=== PATIENT | male | born 1960 | race Two or more races ===

== ENCOUNTER 2024-06-09 13:37 | Inpatient (IN) | payer MEDICAID, SELFPAY ==
[2024-06-09] VITALS (12 sets, daily range): BP systolic 83–154; BP diastolic 53–98; PULSE 66–120; RESP 12–100; TEMP 36.8–37.3; O2SAT 98–100; BMI 18.4; BMI 18.9
--- NOTE | 2024-06-09 14:27 | EKG_ITS ---
[facility] Test Date: 2024-06-09 Pat Name: TERESA SHULTZ Department: Room: - Gender: Male [employer]: : 1960 Requested By: Amber Finley Order Number: [id number] Reading MD: Amber Finley Measurements Intervals [place] Rate: 96 P: 68 PA: 152 QRS: -8 QRSD: 89 T: 62 QT: 352 QTc: 447 Interpretive Statements SINUS RHYTHM WITH FREQUENT VENTRICULAR PREMATURE COMPLEXES ABNORMAL RHYTHM ECG No previous ECG available for comparison /store/S0/[id number]/ecg/[id number].pdf
--- NOTE | 2024-06-09 14:27 | EDNOTE_ITS ---
ED General RME/HPI General Chief complaint: General Adult/Misc Complain Stated complaint: hypotensive, lost 60 lbs/ month, not eating, rlq Time Seen by Provider: 06/09/24 14:26 Arrival date/time: 06/09/24 13:37 RME / HPI RME / HPI narrative: 63-year-old male patient with no significant medical history, came in for evaluation regarding dizziness. Patient's been having worsening dizziness since early May, getting worse, especially with activity. Patient sustained a ground-level fall last May 03, resulting to pain to the left chest. Patient also noticed getting more pale than usual. He lost 60 pounds of weight in 1 month time. He is eating less and less. No vomiting also complained of right lower quadrant pain. Comes and goes. Patient told me that his stool is darker in color. But denies any black tarry stool. Was seen by PCP and was referred here for further management. Related Data Allergies Allergy/AdvReac Type Severity Reaction Status Date / Time No Known Allergies Allergy Verified 06/09/24 13:45 Review of Systems Review of Systems Narrative Review of Systems: Review of system reviewed and within normal limits except mentioned in HPI ED Exam Narrative Physical exam: VITAL SIGNS: Reviewed. GENERAL APPEARANCE: Alert and interactive, follows commands, no acute distress, HEAD AND FACE: Non-traumatic. ENT: PERRL, very pale conjunctiva bilateral, eyelid no trauma, Mucous membrane moist. NECK: Supple, nontender, no nuchal rigidity. CHEST: No tenderness, no crepitus, no paradoxical movement, no retractions. LUNGS: Clear, well ventilated, symmetric, no rales, no wheezing, no ronchi, no stridor, good breath sounds bilaterally. HEART: Regular rate, regular rhythm, no murmur, no gallops. ABDOMEN: Soft, positive bowel sounds, nondistended, no guarding, nontender, no rebound, no masses, RECTAL: Deferred. GENITAL: Deferred. NEUROLOGICAL: Gross motor function intact sensory function intact, Appropriate for age. MUSCULOSKELETAL: low back nontender, full range of motion. EXTREMITIES: Nontender, full range of motion. SKIN: Color pale, dry, no rash, no lacerations, no abrasions, no contusions. LYMPHATICS: Deferred. Course Quality Measures none Orders Category Date Time Status COVID-19 Screening Questionnaire NOW Care 06/09/24 19:[address] Screening NOW Care 06/09/24 15:52 Active Decision to Admit X1 Care 06/09/24 19:49 Active EKG (ED ONLY) *Do not use* NOW Care 06/09/24 14:27 Completed Occult Blood,Stool (Nursing) ONCE Care 06/09/24 14:26 Active Transfuse,blood/blood products ONCE Care 06/09/24 14:26 Active Consult to Gastroenterology Stat Cons 06/09/24 19:01 Ordered Consult to General Surgery Stat Cons 06/09/24 19:00 Ordered Diet Clear Liquid Diet 06/10/[address] chest abdomen pelvis w Stat Exams 06/09/24 15:52 Completed EKG (ED Only) Stat Exams 06/09/24 14:27 Draft CBC Stat Lab 06/09/24 15:00 Completed Comprehensive Metabolic Panel Stat Lab 06/09/24 15:00 Completed Occult Blood, Stool (LAB) Stat Lab 06/09/24 14:50 Completed Partial Thromboplastin Time Stat Lab 06/09/24 15:00 Completed Prothrombin Time with INR Stat Lab 06/09/24 15:00 Completed Red Blood Cells Stat Lab 06/09/24 15:00 Results Type and Screen Stat Lab 06/09/24 15:00 Results Urinalysis Stat Lab 06/09/24 17:26 Completed NA BIANCHI/NAHCO3/[place]ICA/PEG (Golytely) [Golytely] Med 06/09/24 19:02 Discontinued 4,000 ml PO X1 ONE Pantoprazole Inj [Protonix Inj] Med 06/09/24 14:47 Discontinued 80 mg IV X1 ONE Ringers Lactated 1000 ml [Lactated Ringers] 1,000 ml Med 06/09/24 14:27 Discontinued IV 999 mls/hr Vital Signs Vital signs: Vital Signs Temperature 99.2 F 06/09/24 14:15 Pulse Rate 120 H 06/09/24 14:15 Respiratory Rate 18 06/09/24 14:15 Blood Pressure 83/53 L 06/09/24 14:15 Pulse Oximetry (%) 100 06/09/24 14:15 Oxygen Delivery Method Room Air 06/09/24 14:15 [facility] Patient data External records reviewed:: None Clinical information provided by:: patient Social determinants that could affect healthcare access:: none Patient has the following chronic illnesses:: None How is presenting disease/condition affected by chronic disease/condition?: no chronic disease Evaluation data The following diagnostics were reviewed and interpreted by me:: lab results, radiology exam(s) and EKG tracing(s) Lab and/or radiology exams considered but not ordered:: None Interpretation Summary: EKG shows sinus rhythm, ventricular rate 96 bpm, RI interval 152 MS, no ST segment elevation or depression noted. See results in MDM Medications Medications considered but not ordered:: None Medication administrations:: Medication Administration History Discontinued Medications Lactated Ringer's (Lactated Ringers) 1,000 mls @ 999 mls/hr IV .Q1H1M ONE Stop: 06/09/24 15:27 Last Infusion: 06/09/24 16:15 Dose: Infused Documented By: Admin: 06/09/24 15:12 Dose: 999 mls/hr Documented By: RIO Pantoprazole Sodium (Pantoprazole Inj 40 Mg Vial) 80 mg IV X1 ONE Stop: 06/09/24 14:48 Last Admin: 06/09/24 15:11 Dose: 80 mg Documented By: RIO Polyethylene Glycol/Electrolytes ([place]/Nahco3/[place]/Peg (Golytely) 4,000 Ml Btl) 4,000 ml PO X1 ONE Stop: 06/09/24 19:03 IV fluid hydration IV Protonix, GoLytely Consultations Consultation(s) initiated? (list below): Yes Consultation #1 (Physician, Specialty, Details): Dr. Kim, thank you Dr. Kim Consultation #2 (Physician, Specialty, Details): Dr. Brown thank you Diagnosis Differential Diagnosis ED Complaint MDM: Anemia, colonic mass, metastatic colonic mass Most likely diagnosis given after review of the tests above:: Anemia, colonic mass Admission Indicated Admission indicated?: indicated Explain why admission is indicated or not indicated:: Stable Admission Request Was there a request for admission?: No Disposition Plan Disposition Plan: Discharge Discharge Attestation Discharge Attestation: The patient was given an opportunity to ask questions and understood the discharge instructions. Discharge instructions specifically effects, indications for sooner follow up or return to the emergency department, and the expected course of current diagnosis. Patient condition: Stable Medical Decision Making MDM Narrative MDM Narrative: 63-year-old male patient with no significant medical history, came in for evaluation regarding dizziness. Patient's been having worsening dizziness since early May, getting worse, especially with activity. Patient sustained a ground-level fall last May 03, resulting to pain to the left chest. Patient also noticed getting more pale than usual. He lost 60 pounds of weight in 1 month time. He is eating less and less. No vomiting also complained of right lower quadrant pain. Comes and goes. Patient told me that his stool is darker in color. But denies any black tarry stool. Was seen by PCP and was referred here for further management. Rectal rectal exam was done by me, tested positive for occult blood. Laboratory workup is significant for hemoglobin of 6.8, hematocrit of 24.2. Potassium was noted to be 3.0. CT scan of the abdomen and pelvis showed N oncalcified coronary nodules as above Large tumor mass in the cecum and ascending colon with adjacent lymphadenopathy Fluid adjacent to this large colonic mass suspicious for localized perforation as well as peritoneal carcinomatosis Early small bowel obstruction secondary to this colonic mass Suspicious for osseous metastatic disease, recommend nuclear medicine bone scan follow-up Spoke with Dr. Brown, general surgeon on-call, who examined the patient in the emergency room. Differential Diagnosis Differential Diagnosis: Anemia, colonic mass, metastatic colonic mass Lab Data 06/09/24 15:00 06/09/24 15:00 Labs: Lab Results 06/09/24 06/09/24 06/09/24 Range/Units 14:50 15:00 17:26 WBC 8.7 (3.8-10.6) Thou/mm3 RBC 3.64 L (4.50-5.90) Miln/mm3 Hgb 6.8 L* (13.5-16.0) g/dL Hct 24.2 L (41.0-53.0) % MCV 67 L (80-100) fL MCH 18.7 L (25.0-35.0) pg MCHC 28.1 L (31.0-37.0) g/dl RDW Std Deviation 48.3 H (35.1-43.9) fL Plt Count 661 H (140-440) Thou/mm3 Neut % (Auto) 90 H (37-80) % Lymph % (Auto) 5 L (10-50) % [place] % (Auto) 5 (0-12) % Eos % (Auto) 0 (0-10) % Baso % (Auto) 0 (0-2.5) % Neut # (Auto) 7.8 H (1.8-7.7) Thou/mm3 Lymph # (Auto) 0.4 L (1.0-4.8) Thou/mm3 [place] # (Auto) 0.4 (0.0-0.8) Thou/mm3 Eos # (Auto) 0.0 (0.0-0.5) Thou/mm3 Baso # (Auto) 0.0 (0.0-0.2) Thou/mm3 Immature Gran # (Auto) 0.03 H (0.00-0.00) Thou/mm3 Absolute Nucleated RBC 0.00 (0.00-0.00) Thou/mm3 Immature Gran % 0 (0-0) % Nucleated RBC % 0 (0) /100 WBC PT 14.6 H (9.0-12.2) Seconds INR 1.4 H (0.9-1.3) APTT 28.4 (22.0-36.0) Seconds Sodium 136 (136-145) mMol/L Potassium 3.0 L (3.4-5.1) mMol/L Chloride 98 (98-107) mMol/L Carbon Dioxide 29.9 (20.0-31.0) mMol/L Anion Gap 8 (7-16) BUN 19 (9-23) mg/dL Creatinine 0.8 (0.6-1.3) mg/dL Estim Creat Clear Calc 76.8 (>60) mL/min eGFR > 60 (60 - ) See Note BUN/Creatinine Ratio 24 H (12-20) Ratio Glucose 114 H (74-106) mg/dL Calculated Osmolality 275 (275-295) Calcium 9.0 (8.3-10.6) mg/dL Corrected Calcium 9.3 (8.5-10.1) mg/dL Total Bilirubin 0.5 (0.3-1.2) mg/dL AST 10 (0-34) U/L ALT 7 L (10-49) U/L Alkaline Phosphatase 85 (46-116) U/L Total Protein 7.1 (5.7-8.2) gm/dL Albumin 3.6 (3.4-4.8) gm/dL Globulin 3.5 (2.3-3.5) gm/dL Albumin/Globulin Ratio 1.0 L (1.2-2.2) Ur Collection Type Clean Catch Urine Color Yellow (Lt Yel-Yel) Urine Clarity Hazy (Clear/Hazy) Urine pH 7.0 (5.0-7.0) Ur Specific [place] 1.012 (1.001-1.035) Urine Protein Trace (Neg - Trace) Urine Glucose (UA) Negative (Negative) Urine Ketones Negative (Negative) Urine Blood Negative (Negative) Urine Nitrite Positive (Negative) Urine Bilirubin Negative (Negative) Urine Urobilinogen (Auto) 4.0 (0.0-1.0) mg/dL Ur Leukocyte Esterase Positive (Negative) Urine RBC 7 H (0-3) /hpf Urine WBC 27 H (0-5) /hpf Ur Squamous Epith Cells 0 (0-5) /hpf Amorphous Crystals Present A (Absent) Urine Bacteria 1+ A (None) Hyaline Casts < 1 (0-1) /hpf Stool Occult Blood Positive A (Negative) Blood Type O Positive Antibody Screen NEGATIVE Crossmatch See Detail Blood Bank Wristband ID Yes Discharge Plan Plan Patient Disposition: Admit Acute Care w/in Hospital Disposition Comment: Stable Prescriptions/Referrals Referrals: Chris Florian MD [Primary Care Provider] - In 1 week Problem List Clinical Impression: Colonic mass, Anemia Patient/Caregiver Discharge Instructions Print Language: Welsh Stand Alone Forms: Celine Award Info., Patient Portal Info Letter
--- NOTE | 2024-06-09 14:35 | PC.NURSE ---
Patient from [facility] and taken to er rm 2, with c/o gen. abd. pain, decreased appetite, patient states everything tastes saltly pain in abdomen when he eats, patient was send by pmd to be evaluated, also patient states he has lost 60lbs in the last month, and his blood pressure was low at pmd's office. Currently patient skin is jaundice, cool and dry, patient c/o 5/10 abdominal pain and states it feels like gas. new orders received from er provider.
[2024-06-09 15:06] LABS: OBS Developer Lot # 23003; OBS Performed By vasqk2; OBS QC OK? Yes; Occult Blood, Stool Positive (Negative)
[2024-06-09] MEDS: PANTOPRAZOLE INJ 40 MG VIAL 80 MG IV (15:11)
[2024-06-09] MEDS: RINGERS LACTATED 1000 ML 1,000 ML 999 ML IV (15:12)
[2024-06-09 15:17] LABS: Basophils % (Auto) 0 % (0-2.5); Eosinophils % (Auto) 0 % (0-10); Hematocrit 24.2 % (41.0-53.0); Immature Granulocytes % (Auto) 0 % (0-0); Immature Granulocytes Auto 0.03 Thou/mm3 (0.00-0.00); Lymphocytes # (Auto) 0.4 Thou/mm3 (1.0-4.8); Lymphocytes % (Auto) 5 % (10-50); Mean Corpuscular HGB Conc 28.1 g/dl (31.0-37.0); Mean Corpuscular Hemoglobin 18.7 pg (25.0-35.0); Mean Corpuscular Volume 67 fL (80-100); Monocytes # (Auto) 0.4 Thou/mm3 (0.0-0.8); Monocytes % (Auto) 5 % (0-12); Neutrophils # (Auto) 7.8 Thou/mm3 (1.8-7.7); Neutrophils % (Auto) 90 % (37-80); Nucleated Red Blood Cell % 0 /100 WBC (0); Platelet Count 661 Thou/mm3 (140-440); RDW Standard Deviation 48.3 fL (35.1-43.9); Red Blood Count 3.64 Miln/mm3 (4.50-5.90); White Blood Count 8.7 Thou/mm3 (3.8-10.6)
[2024-06-09 15:34] LABS: INR 1.4 (0.9-1.3); Partial Thromboplastin Time 28.4 Seconds (22.0-36.0); Prothrombin Time 14.6 Seconds (9.0-12.2)
--- NOTE | 2024-06-09 15:44 | PC.NURSE ---
DR. BARRETT AT BEDSIDE. SPOKE WITH DR. BARRETT REGARDING LOVENOX MEDICATION, INFORMED DR. BARRETT THAT PATIENT RECEIVED A DOSE OF HEPARIN 5000 UNITS SC THIS MORNING. DR. BARRETT WANTS LOVENOX TO BE CONTINUED ORDERED, VERIFIED WITH PHARMACY SPOKE WITH DIANNE. PER RICARDO NUNEZ TO ADMINISTER LOVENOX MEDICATION, DOCTOR NENA MADE AWARE AND PRIMARY NURSE JUDY MADE AWARE.
[2024-06-09 15:45] LABS: Alanine Aminotransferase 7 U/L (10-49); Albumin, Serum 3.6 gm/dL (3.4-4.8); Alkaline Phosphatase 85 U/L (46-116); Anion Gap 8 (7-16); Aspartate Amino Transferase 10 U/L (0-34); BUN/Creatinine Ratio 24 Ratio (12-20); Bilirubin,Total 0.5 mg/dL (0.3-1.2); Blood Urea Nitrogen 19 mg/dL (9-23); Calcium (Corrected) 9.3 mg/dL (8.5-10.1); Carbon Dioxide 29.9 mMol/L (20.0-31.0); Chloride 98 mMol/L (98-107); Creatinine (Component) 0.8 mg/dL (0.6-1.3); Estimated Creatinine Clearance 76.8 mL/min (>60); Globulin 3.5 gm/dL (2.3-3.5); Glucose 114 mg/dL (74-106); Osmolality,Calculated 275 (275-295); Sodium 136 mMol/L (136-145); Total Protein 7.1 gm/dL (5.7-8.2); eGFR > 60 See Note
[2024-06-09 15:49] LABS: Hemoglobin 6.8 g/dL (13.5-16.0)
--- NOTE | 2024-06-09 15:52 | XR_ITS ---
Examination: CT chest with intravenous contrast CT abdomen with intravenous contrast CT pelvis with intravenous contrast 2-D coronal and sagittal reconstructions Time of exam: June 09, 2024 at 1737 hours INDICATIONS: 60 pound weight loss over the last month with chest and generalized abdominal pain CTDI: vol (mGy) : 4.92 DLP: (mGycm): 376 Technique: Multiple axial images of the chest, abdomen and pelvis with intravenous contrast, 3.0 mm slice thickness. Images obtained post intravenous injection Isovue 370 60 cc. 2-D sagittal and coronal reconstructions. Low dose protocols were performed. One or more of the following dose reduction techniques were used; automated exposure control, adjustment of the mA and/or KV according to patient size, use of iterative reconstruction technique. Findings: No thoracic aortic aneurysm dilatation or dissection Pulmonary artery segments are not enlarged No paratracheal tracheobronchial or bronchopulmonary adenopathy. 3 mm pulmonary nodule right upper lobe image 121 7 mm pulmonary nodule right upper lobe image 207 No lobar pneumonia or pulmonary edema, no pleural disease No visualized liver lesion Contracted gallbladder Spleen is not enlarged No pancreatic or adrenal mass. 6.3 cm upper pole right renal cyst 5 mm calculus anterior margin left kidney Large tumor mass in the cecum ascending colon, axial images 228, coronal image 58 measuring 9 cm proximal distal and 4.6 cm in transverse dimension Significant fluid adjacent to this tumor mass suspicious for localized perforation of the colon at this site Small lymph nodes adjacent to this large colonic mass Reticular pattern in the right peritoneum below and lateral to the mass, axial images 238 suspicious for peritoneal carcinomatosis Small bowel loops are distended terminal ileal region consistent with obstruction by this tumor mass Transverse prostate dimension 4.3 cm Moderate osteopenia with advanced disc narrowing L5-S1 8mm osteolytic lesion left iliac bone image 311 12 mm sclerotic lesion right iliac bone image 334 20 mm osteolytic lesion left iliac bone image 336 8 mm sclerotic lesion in T11 IMPRESSION: Noncalcified coronary nodules as above Large tumor mass in the cecum and ascending colon with adjacent lymphadenopathy Fluid adjacent to this large colonic mass suspicious for localized perforation as well as peritoneal carcinomatosis Early small bowel obstruction secondary to this colonic mass Suspicious for osseous metastatic disease, recommend nuclear medicine bone scan follow-up
--- NOTE | 2024-06-09 17:05 | PC.NURSE ---
Consent for blood signed and placed on chart.
[2024-06-09 17:33] LABS: Collection Type, Urine Clean Catch; Squamous Epithelial Cell,Urine 0 /hpf (0-5)
[2024-06-09 17:47] LABS: Amorphous Crystals,Urine Present (Absent); Bacteria,Urine 1+; Bilirubin,Urine Negative (Negative); Blood,Urine Negative (Negative); Color,Urine Yellow (Lt Yel-Yel); Glucose, Urine Negative (Negative); Hyaline Casts,Urine < 1 /hpf (0-1); Ketones,Urine Negative (Negative); Leukocyte Esterase,Urine Positive (Negative); Nitrite,Urine Positive (Negative); Protein,Urine Trace (Neg - Trace); RBC,Urine 7 /hpf (0-3); Specific Gravity,Urine 1.012 (1.001-1.035); WBC,Urine 27 /hpf (0-5)
[2024-06-09 17:54] LABS: Clarity,Urine Hazy (Clear/Hazy)
--- NOTE | 2024-06-09 19:09 | ESCONSULT_ITS ---
HPI Consult details Consult date: 06/09/24 Reason for consultation narrative: Patient was seen on consultation at the request of emergency room physician because of CT finding showing a large cecal mass and marked anemia History of present illness: History of present was revealed that the patient has been losing weight and has some abdominal pain and bulging on the right lower quadrant when he stands up. Patient denies any history of melena or brendan blood in the stools. He has been going downhill in the past month and is not able to eat and last about 60 pounds. Patient denies any other major medical problems in the past Past Medical History Past Medical History CARDIAC: Negative Cardiac Disorders or Congestive Heart Failure RESPIRATORY: Negative Chronic Obstructive Pulmonary Disease (COPD) or Asthma GENITOURINARY: Negative Renal Disease ENDOCRINE: Negative Diabetes Mellitus Type 1 or Diabetes Mellitus Type 2 HEMATOLOGIC: Negative Sickle Cell Disease Surgical History SURGICAL: Positive Eye Surgery (chris. when he was younger) Social History SMOKING STATUS: Never smoker Meds Home Medications and Allergies Allergies Allergy/AdvReac Type Severity Reaction Status Date / Time No Known Allergies Allergy Verified 06/09/24 13:45 Exam Vital Signs Temp Pulse Resp BP Pulse Ox O2 Del Method 98.7 F 77 12 108/67 100 Room Air 06/09/24 17:00 06/09/24 17:00 06/09/24 17:00 06/09/24 17:00 06/09/24 17:00 06/09/24 17:00 Narrative Exam Physical examination revealed a thin built white male who is about 5 foot 9 inches tall weighing only 125 pounds with BMI of 18.5. His vital signs are normal Routine Abdominal Exam Comments: Abdominal examination shows flat abdomen with no distention or signs of peritonitis. Results Results: Laboratory Laboratory Narrative: Laboratory Showed severe anemia with a hemoglobin of 6.8 and low MCH and MCHC Results: Imaging Imaging narrative: CT scan performed in the emergency room showed large mass in the cecum with possible nodules probably secondary to carcinomatosis. 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 Patient's outlook looks grim but we will follow him. Thank you very much
--- NOTE | 2024-06-09 19:22 | PC.NURSE ---
Dr. Kim at the bedside at this time.
--- NOTE | 2024-06-09 20:17 | PC.NURSE ---
Admitting resident at the bedside at this time.
[2024-06-09] MEDS: NA SU/NAHCO3/KC/PEG (Golytely) 4,000 ML BTL 4000 ML PO (20:26)
--- NOTE | 2024-06-09 20:53 | ESHP_ITS ---
<Statement entered by Daniel Peace MD - 06/10/24 13:39> I have discussed and was present for the essential components of the history, physical examination, diagnosis, and treatment plan with the resident. I agree with the patient's care as documented by the resident and amended herein by me. Daniel Peace MD FACP. Documentation for date of: 06/09/24 HPI History of Present Illness Chief complaint: Hypotension, Weight Loss History of present illness: HPI: Patient is a 63-year-old male with a past medical history significant for cervical spine injury presenting today with a chief complaint of hypotension and weight loss. Patient presented today to his PCP and was found to be hypotensive on arrival and was advised to present to the emergency department. On May 03, 2024 patient had a ground-level fall secondary to feeling weak. He fell and hit his ribs but denied any loss of consciousness, dizziness, headaches. Same time patient noticed a decrease in his appetite but sometimes only consume 1 meal per day. This was associated nausea and sometimes vomiting of only food contents. Also associated with a constant feeling of being bloated. Patient also endorsed an approximate 60 pound weight loss since May 03. With regards to his stools, patient says he has intermittent diarrhea alternating with constipation. Denies any pencil shaped stools, melena, hematochezia, mucus in his stool. His abdominal pain was described as right lower quadrant, intermittent, cramping, 8/10 in severity with no radiation. He says he has some relief with ibuprofen 800 Mg p.o. as needed. He says he tries to avoid pain medication as he does not like to feel loopy. Of note patient is a never?smoker, denies alcohol use, was vegan until 2021 and only rarely consumes red/processed meat. ED course: BP 88/53, pulse 120, RR 18, temp 99.2 F, SpO2 100% on room air. Labs significant for Hb 6.8, HCT 24.2, PLT 661, NA 136, K3. Urinalysis significant for nitrite positive, leukocyte esterase positive and amorphous crystals. EKG significant for sinus rhythm, rate 96, frequent PVCs. No acute ST changes. Chest/abdomen/pelvis CT significant for large tumor mass in cecum and ascending colon with adjacent lymphadenopathy. Fluid adjacent to large colonic mass suspicious for perforation. Possible peritoneal carcinomatosis. Early SBO. Suspicious for osseous metastatic disease. In the ED patient received pantoprazole 80 Mg IV x 1, lactated Ringer's 1 L IV fluid bolus and 1 unit PRBC. Patient will be admitted for workup and management of colonic mass and treatment of symptomatic, acute blood loss anemia. General surgery, Dr Fabian consulted and closely following the case. Appreciate recommendations Gastroenterology, Dr. Kim consulted and closely following the case. Appreciate recommendations Review of Systems Review of Systems Narrative Review of Systems: GENERAL: Denies fever/chills or diaphoresis. HEENT: Denies headaches or visual changes. Denies discharge. Neuro: Denies unusual weakness or difficulty speaking. CARDIO: Denies chest pain or palpitations. PULM: Denies SOB, coughing or wheezing. GI: As above URO: Denies burning/itching/pain/urinary changes. ELEVATORS INSPECTOR: Denies menstrual changes, hot flashes. MSK/EXT/SKIN: Denies joint/skeletal/muscle pain, issues/changes in upper or lower extremities, itchiness, or superficial pain. PSYCH: Cooperative, pleasant mood & affect. The rest of the review of systems is otherwise negative. Past Medical History Past Medical History Comments PMH COMMENT: Past medical history: ? Cervical spine injury Medication list: ?Ibuprofen 800 Mg p.o. 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 Marital Status: . of pancreatic cancer. Has 2 daughters Tobacco use: Denies ETHO use: Denies Illicit drug use: Denies Social History Note: lives alone. At baseline patient can independently ambulate. He was a vegan up until 2021, currently rarely consumes red/processed meat. Family History: Mother? of pancreatic cancer at 83 Exam Vital Signs Temp Pulse Resp BP Pulse Ox O2 Del Method 98.2 F 67 14 114/72 100 Room Air 06/09/24 20:24 06/09/24 20:24 06/09/24 20:16 06/09/24 20:24 06/09/24 20:24 06/09/24 17:00 Narrative Exam Constitutional Alert, oriented x 3 and comfortable. Elderly male, cachectic, bitemporal wasting, appears older than his age. Mucous membranes pale and moist HEENT Vision grossly intact. Patent nares. Trachea midline Respiratory Chest normal on inspection and clear auscultation bilaterally Cardiovascular S1 and S2 audible, RRR. No murmurs carotid bruit. No gross JVD. Abdominal Soft, mass palpated right lower quadrant, non-reducible, painful to palpation, cough impulse negative bilaterally, bowel sounds present. Genitourinary No bladder tenderness, no flank pain. Normal to palpation Musculoskeletal Extremities tone within normal limits. Trace lower extremity edema up to knees bilaterally Neurological CN II - XII grossly intact. Extremity motor and sensation grossly intact. Skin Warm, dry and intact. No apparent lesions. Psychiatric Patient has good affect, is cooperative Results: Labs 06/09/24 15:00 06/09/24 15:00 Labs: Short CBC 06/09/24 Range/Units 15:00 WBC 8.7 (3.8-10.6) Thou/mm3 Hgb 6.8 L* (13.5-16.0) g/dL Hct 24.2 L (41.0-53.0) % Plt Count 661 H (140-440) Thou/mm3 BMP 06/09/24 15:00 Sodium 136 Potassium 3.0 L Chloride 98 Carbon Dioxide 29.9 BUN 19 Creatinine 0.8 Glucose 114 H Calcium 9.0 Liver Function 06/09/24 Range/Units 15:00 Total Bilirubin 0.5 (0.3-1.2) mg/dL AST 10 (0-34) U/L ALT 7 L (10-49) U/L Alkaline Phosphatase 85 (46-116) U/L Albumin 3.6 (3.4-4.8) gm/dL Urine 06/09/24 Range/Units 17:26 Urine Color Yellow (Lt Yel-Yel) Urine Clarity Hazy (Clear/Hazy) Urine pH 7.0 (5.0-7.0) Ur Specific [place] 1.012 (1.001-1.035) Urine Protein Trace (Neg - Trace) Urine Glucose (UA) Negative (Negative) Quality Measures Quality Measures none Medications Home Medications and Allergies Allergies Allergy/AdvReac Type Severity Reaction Status Date / Time No Known Allergies Allergy Verified 06/09/24 13:45 Visit Medications Acetaminophen (Acetaminophen 325 Mg Tablet) 650 mg PO Q6H PRN PRN Reason: Fever >100.3 or pain Stop: 07/09/24 20:46 Albuterol/Ipratropium (Albuterol/Ipratropium (Duoneb) Rt Lyudmila 3 Ml Nebu) 3 ml INH Q4HR PRN PRN Reason: SHORTNESS OF BREATH OR WHEEZE Stop: 07/09/24 20:46 Morphine Sulfate (Morphine Sulf Inj 10 Mg/Ml Vial) 2 mg IVP Q4H PRN PRN Reason: PAIN SCALE 4-10(Mod-Sev Stop: 06/14/24 20:46 Ondansetron HCl (Ondansetron Inj 2 Mg/Ml Inj 2 Ml) 4 mg IV Q6H PRN; Protocol PRN Reason: NAUSEA OR VOMITING Stop: 07/09/24 20:46 Pantoprazole Sodium (Pantoprazole Inj 40 Mg Vial) 40 mg IVP QDAY SAMUEL Stop: 07/10/24 08:59 Discontinued Medications Lactated Ringer's (Lactated Ringers) 1,000 mls @ 999 mls/hr IV .Q1H1M ONE Stop: 06/09/24 15:27 Last Infusion: 06/09/24 16:15 Dose: Infused Lidocaine (Lidocaine 5% 1 Patch) 1 patch TOP X1 ONE Stop: 06/09/24 20:48 Pantoprazole Sodium (Pantoprazole Inj 40 Mg Vial) 80 mg IV X1 ONE Stop: 06/09/24 14:48 Last Admin: 06/09/24 15:11 Dose: 80 mg Polyethylene Glycol/Electrolytes (Na Brown/Nahco3/Sanket/Peg (Golytely) 4,000 Ml Btl) 4,000 ml PO X1 ONE Stop: 06/09/24 19:03 Last Admin: 06/09/24 20:26 Dose: 4,000 ml Assessment & Plan Plan Patient is a 63-year-old male with a past medical history significant for cervical spine injury presenting today with a chief complaint of hypotension and weight loss. Patient will be admitted for workup and management of colonic mass and treatment of symptomatic, acute blood loss anemia. 1. Symptomatic, acute blood loss anemia 2. Thrombocytosis Patient's endorses weakness and intermittent palpitations Patient denies any hematemesis, coffee-ground emesis, melena, hematochezia. On admission Hb 6.8, HCT 24.2. PLT 661 FOBT positive Plan: ? Clear liquid diet ? 1 unit PRBC transfusion ? Post transfusion H&H ? Protonix 40 Mg IV twice daily ? GI, Dr. Kim consulted. Appreciate recommendation 3. Colonic mass for investigation 4. Possible SBO 5. Nausea 6. Weight loss Patient endorses a history of approximately 60 pounds weight loss in the past 1 month, also associated with decreased appetite and nausea Chest/abdomen/pelvis CT significant for large tumor mass in cecum and ascending colon with adjacent lymphadenopathy. Fluid adjacent to large colonic mass suspicious for perforation. Possible peritoneal carcinomatosis. Early SBO. Suspicious for osseous metastatic disease. Plan: ? GoLytely bowel prep ? For colonoscopy once clear ? GI, Dr. Kim consulted. Appreciate recommendations. ? General Surgery, Dr Fabian consulted. Appreciate recommendations 7. Hypokalemia On admission K3 Plan: ? KCl 40 mEq IV x 1 8. Asymptomatic bacteriuria Patient denies any dysuria, increased frequency or LUTS Urinalysis significant for nitrite positive, leukocyte esterase positive and amorphous crystals Plan: ? No need for antibiotics at this time. Health maintenance: Disposition: Blood transfusion. Pending colonoscopy once cleared Diet: Clear liquid Lines: pIVs GI Prophylaxis: Protonix 40 Mg IV twice daily Thrombo Prophylaxis: SCDs Code status: FULL CODE Plan of care discussed with Attending Dr. Nata Rushing MD PGY 1
[2024-06-09] MEDS: LIDOCAINE 5% 1 PATCH TOP (20:58)
[2024-06-09] MEDS: POTASSIUM CHL 10 mEq IVPB 10 MEQ/100 ML BAG 100 MEQ IV ×3 (21:10→23:42)
--- NOTE | 2024-06-09 22:06 | PD.IMCONS ---
HPI Data of Consult Requesting Physician: Daniel Peace MD Primary Care Provider: Chris Florian MD Consult Narrative Reason for consult: H/H 6.8/24.2 abnormal CTAP History of present illness: 63 years old male came into the hospital because of the feeling pale dizzy and 60 pound weight loss Hemoglobin hematocrit 6.8 and 24.2 Pro time INR 1.4 CT abdomen pelvis shows large cecal mass with possible local perforation regional lymphadenopathy as well as metastatic bone disease cc:: cc: Daniel Peace MD Review of Systems Review of Systems Systems Reviewed: All systems reviewed, normal except as documented Meds Home Medications and Allergies Allergies Allergy/AdvReac Type Severity Reaction Status Date / Time No Known Allergies Allergy Verified 06/09/24 13:45 Exam Vital Signs Temp Pulse Resp BP Pulse Ox O2 Del Method 98.2 F 66 20 114/72 100 Room Air 06/09/24 20:24 06/09/24 21:22 06/09/24 21:22 06/09/24 20:24 06/09/24 21:22 06/09/24 17:00 Constitutional Comments: Chronically ill-appearing Routine Respiratory Exam Comments: Normal to auscultation Routine Abdominal Exam Comments: Tender positive bowel sounds Results Labs 06/09/24 15:00 06/09/24 15:00 Labs: Short CBC 06/09/24 Range/Units 15:00 WBC 8.7 (3.8-10.6) Thou/mm3 Hgb 6.8 L* (13.5-16.0) g/dL Hct 24.2 L (41.0-53.0) % Plt Count 661 H (140-440) Thou/mm3 BMP 06/09/24 15:00 Sodium 136 Potassium 3.0 L Chloride 98 Carbon Dioxide 29.9 BUN 19 Creatinine 0.8 Glucose 114 H Calcium 9.0 Liver Function 06/09/24 Range/Units 15:00 Total Bilirubin 0.5 (0.3-1.2) mg/dL AST 10 (0-34) U/L ALT 7 L (10-49) U/L Alkaline Phosphatase 85 (46-116) U/L Albumin 3.6 (3.4-4.8) gm/dL Urine 06/09/24 Range/Units 17:26 Urine Color Yellow (Lt Yel-Yel) Urine Clarity Hazy (Clear/Hazy) Urine pH 7.0 (5.0-7.0) Ur Specific [place] 1.012 (1.001-1.035) Urine Protein Trace (Neg - Trace) Urine Glucose (UA) Negative (Negative) Assessment and Plan Additional Assessment & Plan Additional Plan: # 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
[2024-06-09 22:40] LABS: Carcinoembryonic Antigen 3.4 ng/mL (0.0-5.0)
[2024-06-10] VITALS (10 sets, daily range): BP systolic 103–137; BP diastolic 61–92; PULSE 67–86; RESP 16–98; TEMP 36.2–36.8; O2SAT 94–100; BMI 19.0
[2024-06-10] MEDS: POTASSIUM CHL 10 mEq IVPB 10 MEQ/100 ML BAG 100 MEQ IV ×3 (00:55→14:20)
[2024-06-10 01:36] LABS: Hematocrit 28.3 % (41.0-53.0)
[2024-06-10 01:48] LABS: Hemoglobin 8.5 g/dL (13.5-16.0)
[2024-06-10] MEDS: ONDANSETRON INJ 2 MG/ML INJ 2 ML 4 MG IV (02:38)
--- NOTE | 2024-06-10 03:40 | PC.NURSE ---
MD Cruz notified that patient is not tolerating goleytely prep. Patient was given zofran at approximately 0238 but an hour later there is no relief and patient states he can't keep anything down without throwing up. He said he does not eat or drink much at home, only one meal a day and 2-3 cups of water a day. MD Cruz put in orders for NG tube to LIS and NPO. Patient educated about NG tube but patient is refusing NG tube insertion at this time
[2024-06-10 05:58] LABS: Basophils % (Auto) 0 % (0-2.5); Eosinophils % (Auto) 0 % (0-10); Hematocrit 33.7 % (41.0-53.0); Hemoglobin 10.3 g/dL (13.5-16.0); Immature Granulocytes % (Auto) 0 % (0-0); Immature Granulocytes Auto 0.02 Thou/mm3 (0.00-0.00); Lymphocytes # (Auto) 0.5 Thou/mm3 (1.0-4.8); Lymphocytes % (Auto) 6 % (10-50); Mean Corpuscular HGB Conc 30.6 g/dl (31.0-37.0); Mean Corpuscular Hemoglobin 21.3 pg (25.0-35.0); Mean Corpuscular Volume 70 fL (80-100); Monocytes # (Auto) 0.6 Thou/mm3 (0.0-0.8); Monocytes % (Auto) 7 % (0-12); Neutrophils # (Auto) 6.9 Thou/mm3 (1.8-7.7); Neutrophils % (Auto) 86 % (37-80); Nucleated Red Blood Cell % 0 /100 WBC (0); Platelet Count 645 Thou/mm3 (140-440); RDW Standard Deviation 55.1 fL (35.1-43.9); Red Blood Count 4.84 Miln/mm3 (4.50-5.90)
[2024-06-10 06:34] LABS: Glucose Estimated Average 94 mg/dL (80-131); Hemoglobin A1C 4.9 % Hgb (4.8-6.0)
--- NOTE | 2024-06-10 06:36 | PC.NURSE ---
Dicyclomine vial not available in pyxis. Pharmacy notified and said they will look into it
[2024-06-10 06:37] LABS: Alanine Aminotransferase 7 U/L (10-49); Albumin, Serum 3.2 gm/dL (3.4-4.8); Albumin/Globulin Ratio 0.9 (1.2-2.2); Alkaline Phosphatase 79 U/L (46-116); Anion Gap 9 (7-16); Aspartate Amino Transferase 13 U/L (0-34); BUN/Creatinine Ratio 20 Ratio (12-20); Bilirubin,Total 1.2 mg/dL (0.3-1.2); Blood Urea Nitrogen 10 mg/dL (9-23); Calcium (Corrected) 9.6 mg/dL (8.5-10.1); Carbon Dioxide 27.8 mMol/L (20.0-31.0); Cardiac Risk Estimate 3.4 RATIO (4.0-6.7); Chloride 102 mMol/L (98-107); Cholesterol 101 mg/dL (132-200); Creatinine (Component) 0.5 mg/dL (0.6-1.3); Estimated Creatinine Clearance 126.3 mL/min (>60); Globulin 3.6 gm/dL (2.3-3.5); Glucose 95 mg/dL (74-106); HDL Cholesterol 30 mg/dL (40-60); LDL Cholesterol,Calculated 54 mg/dL (0-130); Magnesium 1.9 mg/dL (1.6-2.6); Osmolality,Calculated 276 (275-295); Phosphorous 2.6 mg/dL (2.4-5.1); Potassium 3.4 mMol/L (3.4-5.1); Sodium 139 mMol/L (136-145); Total Protein 6.8 gm/dL (5.7-8.2); Triglycerides 86 mg/dL (30-150); eGFR > 60 See Note
[2024-06-10] MEDS: PANTOPRAZOLE INJ 40 MG VIAL IVP ×2 (09:50→20:48)
--- NOTE | 2024-06-10 10:24 | XR_ITS ---
Examination: Gastrografin enema with KUB Exam date and time: May 14, 2024 1102 hours INDICATIONS: Mass in the right colon on CT abdomen study yesterday, abdominal distention 2 days TECHNIQUE AND FINDINGS: [facility] Services AP supine abdomen demonstrates air distended small bowel loops Colon filled in retrograde manner with Gastrografin to the ascending colon with large apple core type abrupt termination of the ascending colon near the cecum No significant contrast passes more proximally No abnormal extravasation of Gastrografin IMPRESSION: Total obstruction of the ascending colon by large tumor mass
--- NOTE | 2024-06-10 12:35 | ESCONSULT_ITS ---
HPI Data of Consult Requesting Physician: Daniel Peace MD Primary Care Provider: Chris Florian MD Consult Narrative Reason for consult: Suspected colon cancer History of present illness: Patient is 63-year-old gentleman admitted with abdominal pain, with CT scan June 09, 2024 showing large tumor mass in the cecum and ascending colon with adjacent lymphadenopathy. There was fluid adjacent to the large colonic mass suspicious for localized perforation as well as peritoneal carcinomatosis. There is also early small bowel obstruction secondary to colonic mass. There was also suspected osseous met disease. Also noted was significant low hemoglobin was 6.8 and received 1 unit packed cells. Seen by Dr. Brown general surgeon and Dr. Kim marine water tender who is planning a colonoscopy and biopsy. Referred for oncological consultation. 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 denies smoking drinking Past Medical History Comments PMH COMMENT: History of cervical spine injury ocular surgery for right eye stress [place] visit at age 8. Meds Home Medications and Allergies Home Medications ?Medication ?Instructions ?Recorded ?Confirmed ?Type ibuprofen 400 mg tablet (IBU) 400 mg PO PRN PRN pain 0 06/10/24 06/10/24 History Allergies Allergy/AdvReac Type Severity Reaction Status Date / Time No Known Allergies Allergy Verified 06/09/24 13:45 Exam Vital Signs Temp Pulse Resp BP Pulse Ox O2 Del Method 97.7 F 80 17 137/92 H 98 Room Air 06/10/24 08:00 06/10/24 08:00 06/10/24 08:00 06/10/24 08:00 06/10/24 08:00 06/10/24 04:00 Narrative Exam Tired appearing gentleman in no acute distress Results Labs 06/10/24 05:05 06/10/24 05:05 Labs: Short CBC 06/09/24 06/10/24 06/10/24 Range/Units 15:00 01:25 05:05 WBC 8.7 8.0 (3.8-10.6) Thou/mm3 Hgb 6.8 L* 8.5 L D 10.3 L D (13.5-16.0) g/dL Hct 24.2 L 28.3 L 33.7 L (41.0-53.0) % Plt Count 661 H 645 H (140-440) Thou/mm3 BMP 06/09/24 06/10/24 15:00 05:05 Sodium 136 139 Potassium 3.0 L 3.4 Chloride 98 102 Carbon Dioxide 29.9 27.8 BUN 19 10 Creatinine 0.8 0.5 L Glucose 114 H 95 Calcium 9.0 9.0 Liver Function 06/09/24 06/10/24 Range/Units 15:00 05:05 Total Bilirubin 0.5 1.2 D (0.3-1.2) mg/dL AST 10 13 (0-34) U/L ALT 7 L 7 L (10-49) U/L Alkaline Phosphatase 85 79 (46-116) U/L Albumin 3.6 3.2 L (3.4-4.8) gm/dL Urine 06/09/24 Range/Units 17:26 Urine Color Yellow (Lt Yel-Yel) Urine Clarity Hazy (Clear/Hazy) Urine pH 7.0 (5.0-7.0) Ur Specific [place] 1.012 (1.001-1.035) Urine Protein Trace (Neg - Trace) Urine Glucose (UA) Negative (Negative) Assessment and Plan Additional Assessment & Plan Additional Plan: 1.Likely stage IV colon cancer with bone involvement and local perforation. 2. Awaiting colonoscopy and biopsy of cecal mass. Bone scan will be ordered. 3. Will follow. Thank you for allowing me to evaluate this patient
--- NOTE | 2024-06-10 12:49 | XR_ITS ---
Examination: Bone scan whole body, radioisotope Date and time of exam: June 11, 2024 1146 hours INDICATIONS: Malignant neoplasm of the cecum and ascending colon, staging Technique: Study has been performed with intravenous administration of 23 mci 99M technetium MDP. Anterior, posterior whole body images are obtained. Images have been obtained including the lower extremities. Findings: Increased isotope accumulation anterior left ribs left sixth and seventh Minor asymmetric increased uptake about the right knee IMPRESSION: Positive bone scan but nonspecific, the foci of increased uptake in the left sixth and seventh ribs appear to be old fractures on the CT chest study June 09, 2024 No findings diagnostic for osseous metastatic disease
--- NOTE | 2024-06-10 13:34 | PD.RESPRO ---
Documentation for date of: 06/10/24 Subjective Subjective Interval history: Patient seen at bedside this morning. No overnight events. Patient was unable to tolerate GoLytely prep as he had increased vomiting and could not hold the GoLytely. General surgeon ordered chest x-ray with barium enema which showed total obstruction of the ascending colon by large tumor mass. Patient after coming back from radiology did have copious diarrhea. General surgeon stated that patient would most likely need an ex lap, but that was getting consult with GI specialist for next course of action. 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 Patient has no other complaints at this time. Exam Vital Signs Temp Pulse Resp BP Pulse Ox O2 Del Method 97.7 F 80 17 137/92 H 98 Room Air 06/10/24 08:00 06/10/24 08:00 06/10/24 08:00 06/10/24 08:00 06/10/24 08:00 06/10/24 04:00 Narrative Exam General: A/O x3, no acute distress, thin/frail Eyes: PERRL, EOMI. Anicteric, vision grossly intact. Ears: No ear pain, no ear discharge, Hearing grossly intact. Nose: No nasal discharge. Mouth/Throat: Moist mucous membranes, no redness, no lesions. Neck: Neck supple, non-tender, no cervical lymphadenopathy. Lungs: Clear JAYASHREE to auscultation and percussion, No accessory muscle use. Cardio: Normal S1/S2, regular rhythm, no murmurs, no JVD. Abdomen: Soft, non-tender, palpable mass in R side abdomen, peristalsis present, no guarding or rebound. Extremities: Symmetrical, no significant deformities, no peripheral edema , non-tender, peripheral pulses presents. Skin: No rashes, no lesions, warm to touch. Neuro: No focal neurological deficits. Motor and sensory Objective Labs 06/10/24 05:05 06/10/24 05:05 Labs: Laboratory Results - last 24 hr 06/09/24 06/09/24 06/09/24 14:50 15:00 17:26 WBC 8.7 RBC 3.64 L Hgb 6.8 L* Hct 24.2 L MCV 67 L MCH 18.7 L MCHC 28.1 L RDW Std Deviation 48.3 H Plt Count 661 H Neut % (Auto) 90 H Lymph % (Auto) 5 L Chase % (Auto) 5 Eos % (Auto) 0 Baso % (Auto) 0 Neut # (Auto) 7.8 H Lymph # (Auto) 0.4 L Chase # (Auto) 0.4 Eos # (Auto) 0.0 Baso # (Auto) 0.0 Immature Gran # (Auto) 0.03 H Absolute Nucleated RBC 0.00 Immature Gran % 0 Nucleated RBC % 0 PT 14.6 H INR 1.4 H APTT 28.4 Sodium 136 Potassium 3.0 L Chloride 98 Carbon Dioxide 29.9 Anion Gap 8 BUN 19 Creatinine 0.8 Estim Creat Clear Calc 76.8 eGFR > 60 BUN/Creatinine Ratio 24 H Glucose [address] Glu mg/dL Hemoglobin A1c Calculated Osmolality 275 Calcium 9.0 Corrected Calcium 9.3 Phosphorus Magnesium Total Bilirubin 0.5 AST 10 ALT 7 L Alkaline Phosphatase 85 Total Protein 7.1 Albumin 3.6 Globulin 3.5 Albumin/Globulin Ratio 1.0 L Triglycerides Cholesterol LDL Cholesterol, Calc HDL Cholesterol Cholesterol/HDL Ratio Carcinoembryonic Ag 3.4 TSH Ur Collection Type Clean Catch Urine Color Yellow Urine Clarity Hazy Urine pH 7.0 Ur Specific Wayne 1.012 Urine Protein Trace Urine Glucose (UA) Negative Urine Ketones Negative Urine Blood Negative Urine Nitrite Positive Urine Bilirubin Negative Urine Urobilinogen (Auto) 4.0 Ur Leukocyte Esterase Positive Urine RBC 7 H Urine WBC 27 H Ur Squamous Epith Cells 0 Amorphous Crystals Present A Urine Bacteria 1+ A Hyaline Casts < 1 Stool Occult Blood Positive A Blood Type O Positive Antibody Screen NEGATIVE Crossmatch See Detail Blood Bank Wristband ID Yes 06/10/24 06/10/24 01:25 05:05 WBC 8.0 RBC 4.84 Hgb 8.5 L D 10.3 L D Hct 28.3 L 33.7 L MCV 70 L MCH 21.3 L MCHC 30.6 L RDW Std Deviation 55.1 H Plt Count 645 H Neut % (Auto) 86 H Lymph % (Auto) 6 L Chase % (Auto) 7 Eos % (Auto) 0 Baso % (Auto) 0 Neut # (Auto) 6.9 Lymph # (Auto) 0.5 L Chase # (Auto) 0.6 Eos # (Auto) 0.0 Baso # (Auto) 0.0 Immature Gran # (Auto) 0.02 H Absolute Nucleated RBC 0.00 Immature Gran % 0 Nucleated RBC % 0 PT INR APTT Sodium 139 Potassium 3.4 Chloride 102 Carbon Dioxide 27.8 Anion Gap 9 BUN 10 Creatinine 0.5 L Estim Creat Clear Calc 126.3 eGFR > 60 BUN/Creatinine Ratio [address] Glu mg/dL 94 Hemoglobin A1c 4.9 Calculated Osmolality 276 Calcium 9.0 Corrected Calcium 9.6 Phosphorus 2.6 Magnesium 1.9 Total Bilirubin 1.2 D AST 13 ALT 7 L Alkaline Phosphatase 79 Total Protein 6.8 Albumin 3.2 L Globulin 3.6 H Albumin/Globulin Ratio 0.9 L Triglycerides 86 Cholesterol 101 L LDL Cholesterol, Calc 54 HDL Cholesterol 30 L Cholesterol/HDL Ratio 3.4 L Carcinoembryonic Ag TSH 1.60 Ur Collection Type Urine Color Urine Clarity Urine pH Ur Specific Wayne Urine Protein Urine Glucose (UA) Urine Ketones Urine Blood Urine Nitrite Urine Bilirubin Urine Urobilinogen (Auto) Ur Leukocyte Esterase Urine RBC Urine WBC Ur Squamous Epith Cells Amorphous Crystals Urine Bacteria Hyaline Casts Stool Occult Blood Blood Type Antibody Screen Crossmatch Blood Bank Wristband ID Quality Measures Quality Measures none Assessment & Plan Assessment Current Active Medications: Generic Name Dose Route Start Last Admin Trade Name Freq PRN Reason Stop Dose Admin Acetaminophen 650 mg 06/09/24 20:47 Acetaminophen 325 Mg Tablet PO 07/09/24 20:46 Q6H PRN Fever >100.3 or pain Albuterol/Ipratropium 3 ml 06/09/24 20:47 Albuterol/Ipratropium (Duoneb) Rt Lyudmila 3 Ml Nebu INH 07/09/24 20:46 Q4HR PRN SHORTNESS OF BREATH OR WHEEZE Morphine Sulfate 2 mg 06/09/24 20:47 Morphine Sulf Inj 10 Mg/Ml Vial IVP 06/14/24 20:46 Q4H PRN PAIN SCALE 4-10(Mod-Sev Ondansetron HCl 4 mg 06/09/24 20:47 06/10/24 02:38 Ondansetron Inj 2 Mg/Ml Inj 2 Ml IV 07/09/24 20:46 4 mg Q6H PRN Administration NAUSEA OR VOMITING Protocol Pantoprazole Sodium 40 mg 06/10/24 09:00 06/10/24 09:50 Pantoprazole Inj 40 Mg Vial IVP 07/10/24 08:59 40 mg BID SAMUEL Administration Plan 63-year-old male with past medical history of cervical spine injury was admitted to the hospital on 06/09/2024 due to symptomatic anemia likely secondary to blood loss in the setting of colonic mass with suspicion for malignancy. #Symptomatic anemia likely secondary to #GI bleed in the setting of #Colonic mass, suspicion for malignancy #Lymphadenopathy #Osteolytic lesions #Weight loss ?Patient stated he was feeling weak some palpitations on admission ?DDx patient's anemia most likely in the setting of GI bleed due to possible colonic malignancy with possible metastasis given patient has osteolytic lesions as well as lymphadenopathy. ?Patient's hemoglobin on admission was 6.8 and currently 10.3 today ? Patient's FOBT was positive ? Chest/abdomen/pelvis CTA showed a large tumor mass in cecum and ascending colon with adjacent lymphadenopathy as well as fluid adjacent to mass suspicious for perforation versus peritoneal carcinomatosis. ?CEA 3.4 ?Patient received 2 unit of PRBC ?X-ray barium enema showed obstruction of the ascending colon by tumor mass Plan: ?Possible Ex lap by general surgeon en next few days - Unable to tolerate bowel prep, will await GI recommendations ?Protonix 40 mg twice daily ?Bone scan ordered by oncologist ? Bleeding precautions ? Refer to registered dietitian ? GI consulted, appreciate recommendations ? General Surgery consulted, appreciate commendations ?Oncology consulted, appreciate commendations ?Will continue to monitor #Hypokalemia ? Patient's potassium on admission was 3 and currently 3.4 Plan: ? Will replete as necessary ?Will continue to monitor #Asymptomatic bacteriuria ? Patient's urinalysis was positive for bacteria ? Patient did not have any symptoms at this time Plan: ? Will continue to monitor, but will not treat as patient is symptomatic. Disposition: Patient seen in med surg for possible Stage IV colon cancer with bone involvement, pending possible Ex lap by general surgeon. Diet: NPO GI prophylaxis: Protonix DVT prophylaxis: SCDs Code: Full code Case disclosed with Attending Dr. Lan and my senior Dr. Fonseca PGY2 Fareed Tristan PGY1 Senior Resident Attestation: The patient is a 63-year-old male with significant past medical history of cervical spine injury admitted on 06/09/2024 with chief complaint of generalized weakness was found to have symptomatic anemia likely secondary to lower GI bleed in the setting of colonic mass suspected to be malignant. GI Dr. Kim suspended the patient's colonoscopy procedure, ordered bone scan and patient tried Gastrografin p.o. but started vomiting. Currently pending general surgeon Dr. Brown's recommendation. We will keep the patient n.p.o. in the setting of intractable nausea and vomiting. I discussed with and supervised the process engineering intern physician involved in the care of this patient. I personally saw and examined the patient and discussed the assessment and plan with the entire medicine team, including my attending. I agree with the assessment and plan as documented above. Shin Fonseca MD PGY2 Internal Medicine Attending Provider Attestation/Addendum I reviewed labs, imaging, EKG, home medications and prior available records. Face to face evaluation was performed by me. I have personally examined the patient and discussed assessment and plan with the IM team. I reviewed the resident note and agree with the plan with exceptions as below. Colon mass: Concern for malignancy. He has severe constipation. He has lymphadenopathy and bony lesions concerning for bone metastases. Sent CEA. Consulted oncology: Recommended bone scan and biopsy of the colon mass. Consulted general surgery: Recommended exploratory laparotomy and GI involvement. Consulted GI: Recommended GoLytely and Gastrografin study. Gastrografin study did show the mass. Patient will likely have exploratory laparotomy in the next 1 to 2 days but will try colonoscopy first and removal of stool. Microcytic anemia: MCV 70. In the setting of colon mass/malignancy. Improved after PRBC transfusion. Continue to monitor H&H. GI workup as above.
--- NOTE | 2024-06-10 16:13 | PC.DIETICIAN ---
Patient is at high risk for refeeding syndrome given very low BMI, poor oral intake, and significant weight loss. 1.Initiate a refeeding protocol with gradual caloric increase, starting with a low dose of carbohydrates and protein, to prevent refeeding syndrome. Prioritize small, frequent meals. 2.Consider ONS (Ensure plus or Mighty Shakes) if PO intake remains <50%. 3.Recommend 100mg thiamine daily for 7 days; provide the first dose at least 30 minutes before starting nutrition. RD to remain available as requested or needed.
--- NOTE | 2024-06-10 18:30 | ESPR_ITS ---
Documentation for date of: 06/10/24 Subjective Subjective Brief History: History of present was revealed that the patient has been losing weight and has some abdominal pain and bulging on the right lower quadrant when he stands up. Patient denies any history of melena or brendan blood in the stools. He has been going downhill in the past month and is not able to eat and last about 60 pounds. Patient denies any other major medical problems in the past Narrative: Patient was seen today after the barium enema. 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 He will require palliative resection of the right colon possibly ilio transverse colostomy if his bowel is clean. Otherwise he may even need a palliative jejunostomy. If the lesion is struck firmly to the abdominal wall resection of this lesion especially in the presence of metastatic disease in the abdomen will be difficult and may not change the prognosis. Patient does not want any bowel prep or surgical intervention at this time because he wants to make some arrang ements with his children and want to discuss with them about the surgery. He wants to go away from the hospital for a couple of days to take care of some legal matters and then come back to the hospital for surgery. We will meanwhile wait and see if Dr. Kim is still considering to do a colonoscopy. Thank you very much
--- NOTE | 2024-06-10 18:44 | PC.LAC ---
Rocio came and spoke to the patient about the need for surgery on the large tumor in his colon. Patient is adamant that he would prefer to leave for a day or two so that he can get legal paper work taken care of in case he does not make it through surgery. Rocio did explain to the patient that it would be best that prior to surgery he would complete a bowel prep if possible (either golytely or mag citrate) because that would help to have a better outcome with the surgery. At this time, pt is not able to complete golytely due to it making him nauseated and vomit at time. Patient understands that he needs the surgery. Rocio is in agreement to let the pt do whatever he feels he needs to do, with the hopes that he will return to have the surgery. However, it has also been explained that this is likely cancer and we do not know if it has spread.
--- NOTE | 2024-06-10 21:01 | ESPR_ITS ---
Documentation for date of: 06/10/24 Subjective Subjective Interval history: Patient evaluated patient wants to go home for couple days to take care of some legal matters GoLytely stopped because patient had vomiting Case discussed with the hand frame surgical elastic knitter Patient can go home and come back for readmission and try to prep the colon at that time My only advice is patient stays on clear liquid diet at home And give him GoLytely via NGT slowly on his admission back in prep the colon and have a 1 stage operation Exam Vital Signs Temp Pulse Resp BP Pulse Ox O2 Del Method 97.1 F 71 18 103/82 98 Room Air 06/10/24 16:00 06/10/24 20:07 06/10/24 20:07 06/10/24 16:00 06/10/24 20:07 06/10/24 04:00 Objective Labs 06/10/24 05:05 06/10/24 05:05 Labs: Laboratory Results - last 24 hr 06/09/24 06/10/24 06/10/24 15:00 01:25 05:05 WBC 8.0 RBC 4.84 Hgb 8.5 L D 10.3 L D Hct 28.3 L 33.7 L MCV 70 L MCH 21.3 L MCHC 30.6 L RDW Std Deviation 55.1 H Plt Count 645 H Neut % (Auto) 86 H Lymph % (Auto) 6 L [place] % (Auto) 7 Eos % (Auto) 0 Baso % (Auto) 0 Neut # (Auto) 6.9 Lymph # (Auto) 0.5 L [place] # (Auto) 0.6 Eos # (Auto) 0.0 Baso # (Auto) 0.0 Immature Gran # (Auto) 0.02 H Absolute Nucleated RBC 0.00 Immature Gran % 0 Nucleated RBC % 0 Sodium 139 Potassium 3.4 Chloride 102 Carbon Dioxide 27.8 Anion Gap 9 BUN 10 Creatinine 0.5 L Estim Creat Clear Calc 126.3 eGFR > 60 BUN/Creatinine Ratio [address] Glu mg/dL 94 Hemoglobin A1c 4.9 Calculated Osmolality 276 Calcium 9.0 Corrected Calcium 9.6 Phosphorus 2.6 Magnesium 1.9 Total Bilirubin 1.2 D AST 13 ALT 7 L Alkaline Phosphatase 79 Total Protein 6.8 Albumin 3.2 L Globulin 3.6 H Albumin/Globulin Ratio 0.9 L Triglycerides 86 Cholesterol 101 L LDL Cholesterol, Calc 54 HDL Cholesterol 30 L Cholesterol/HDL Ratio 3.4 L Carcinoembryonic Ag 3.4 TSH 1.60 Blood Type O Positive Antibody Screen NEGATIVE Crossmatch See Detail Blood Bank Wristband ID Yes Impressions Impression: # Obstructing mass: Of the colon Plan As in HPI Assessment & Plan A&P Narrative 1.Likely stage IV colon cancer with bone involvement and local perforation. 2. Awaiting colonoscopy and biopsy of cecal mass. Bone scan will be ordered. 3. Will follow. Thank you for allowing me to evaluate this patient Time Spent With Patient Time: Total time spent is greater than 50% in coordination of care (as documented) at patient's floor/unit and/or counseling patient:
[2024-06-10] MEDS: MORPHINE SULF INJ 10 MG/ML VIAL 2 MG IVP (23:54)
[2024-06-11] VITALS: BP 92/71; PULSE 71; RESP 16; TEMP 37.2; O2SAT 98
[2024-06-11 04:00] VITALS: BP 99/62; PULSE 66; RESP 18; TEMP 37.4; O2SAT 94
[2024-06-11 05:21] LABS: Basophils % (Auto) 0 % (0-2.5); Eosinophils % (Auto) 0 % (0-10); Hematocrit 28.5 % (41.0-53.0); Immature Granulocytes % (Auto) 0 % (0-0); Immature Granulocytes Auto 0.02 Thou/mm3 (0.00-0.00); Lymphocytes # (Auto) 0.7 Thou/mm3 (1.0-4.8); Lymphocytes % (Auto) 10 % (10-50); Mean Corpuscular HGB Conc 30.2 g/dl (31.0-37.0); Mean Corpuscular Hemoglobin 21.2 pg (25.0-35.0); Mean Corpuscular Volume 70 fL (80-100); Monocytes # (Auto) 0.5 Thou/mm3 (0.0-0.8); Monocytes % (Auto) 8 % (0-12); Neutrophils # (Auto) 5.8 Thou/mm3 (1.8-7.7); Neutrophils % (Auto) 82 % (37-80); Nucleated Red Blood Cell % 0 /100 WBC (0); Platelet Count 636 Thou/mm3 (140-440); RDW Standard Deviation 57.6 fL (35.1-43.9); Red Blood Count 4.05 Miln/mm3 (4.50-5.90); White Blood Count 7.1 Thou/mm3 (3.8-10.6)
[2024-06-11 05:36] LABS: Hemoglobin 8.6 g/dL (13.5-16.0)
[2024-06-11 06:08] LABS: Alanine Aminotransferase < 7 U/L (10-49); Albumin, Serum 2.8 gm/dL (3.4-4.8); Albumin/Globulin Ratio 0.9 (1.2-2.2); Alkaline Phosphatase 66 U/L (46-116); Anion Gap 10 (7-16); Aspartate Amino Transferase < 10 U/L (0-34); BUN/Creatinine Ratio 18 Ratio (12-20); Bilirubin,Total 0.9 mg/dL (0.3-1.2); Blood Urea Nitrogen 9 mg/dL (9-23); Calcium 8.9 mg/dL (8.3-10.6); Calcium (Corrected) 9.9 mg/dL (8.5-10.1); Carbon Dioxide 28.2 mMol/L (20.0-31.0); Chloride 104 mMol/L (98-107); Creatinine (Component) 0.5 mg/dL (0.6-1.3); Estimated Creatinine Clearance 126.3 mL/min (>60); Globulin 3.1 gm/dL (2.3-3.5); Glucose 82 mg/dL (74-106); Magnesium 1.9 mg/dL (1.6-2.6); Osmolality,Calculated 280 (275-295); Phosphorous 3.3 mg/dL (2.4-5.1); Potassium 3.5 mMol/L (3.4-5.1); Sodium 142 mMol/L (136-145); Total Protein 5.9 gm/dL (5.7-8.2); eGFR > 60 See Note
[2024-06-11] MEDS: MORPHINE SULF INJ 10 MG/ML VIAL 2 MG IVP ×2 (06:18→12:37)
[2024-06-11 08:00] VITALS: BP 102/67; PULSE 62; RESP 18; TEMP 36.5; O2SAT 99
[2024-06-11 08:42] VITALS: PULSE 60; RESP 16; RESP 18; RESP 98; O2SAT 98
[2024-06-11] MEDS: PANTOPRAZOLE INJ 40 MG VIAL IVP (09:01)
[2024-06-11] MEDS: SODIUM CHLORIDE 0.9% 1000 ML 1,000 ML 100 ML IV (09:01)
--- NOTE | 2024-06-11 11:46 | PC.NURSE ---
dr. flores at bedside md aware of patient desire to leave ama after scan. md communicated importance of staying in the hospital and risks of signing out ama everything up to and including .pt acknowledged. stated he will return if any health changes occur but will return on friday if everything is well. plan is for patient to sign out ama after scan
--- NOTE | 2024-06-11 14:33 | PC.NURSE ---
pt reducated on risks of leaving ama. pt acknowledged. states he needs to handle legal services for his hildren first and must leave. pt alert and oriented gcs 15. niece at bedside. pt signing out ama . MD dr tejada aware
--- NOTE | 2024-06-11 14:46 | PD.RESDS ---
Planned Discharge Date 06/11/24 DS: Providers Provider Date of admission: 06/09/24 20:48 Primary care physician: Chris Florian MD Admitting Provider: Daniel Peace MD Attending Provider on Admission: Daniel Peace MD Consults: 06/09/24 19:00 Consult to General Surgery Stat Comment: colonic maSS Consulting Provider: Estefania Fabian 06/09/24 19:01 Consult to Gastroenterology Stat Comment: Colonic mass Consulting Provider: Brigida Kim 06/10/24 08:00 Referral Registered Dietitian Routine Comment: 06/10/24 10:39 Consult to Oncology Routine Comment: Consulting Provider: Bakari Lares Attending Provider on DC: Ronald Paul MD Discharging Provider: Ronald Paul MD DS: Diagnosis Problem List Completed Was Problem List Reviewed/Reconciled?: Yes Hospital Course Hospital Course Hospital course: 63-year-old male with past medical history of cervical spine injury was admitted to the hospital on 06/09/2024 due to symptomatic anemia likely secondary to blood loss in the setting of colonic mass with suspicion for malignancy. In the ER patient came in initially with complaints of dyspnea, weight loss, and abdominal pain. Initially patient was hypotensive and tachycardic. Initial labs were relevant for anemia (Hgb 6.8), hypokalemia (3), FOBT positive, and UA was positive for bacteria. Initial imaging included EKG which showed sinus rhythm with PACs and chest/abdomen/pelvis CT which showed a large tumor mass in the cecum and ascending colon with adjacent lymphadenopathy as well as multiple osteolytic lesions in the iliac bones as well as the thoracic spine. General surgery was consulted given this patient's mass and at this time stated that the patient needed GI workup for possible colonoscopy. GI specialist was also consulted and started the patient on GoLytely prep for possible colonoscopy, but patient was unable to tolerate GoLytely as he was experiencing a lot of vomiting therefore colonoscopy was canceled. Patient was given 2 PRBC for his anemia. Oncologist was also consulted given the high suspicion for malignancy and stated the patient was likely had stage IV colon cancer with metastasis to the bone and recommended the patient to have a bone scan. Patient had a barium enema x-ray which showed a total obstruction of the ascending colon by a large tumor mass and general surgeon stated that patient will need an ex lap at this time, but patient stated that he needed to take care of some legal matters prior to having surgery and they need to take care of those legal matters as soon as possible. At this time given that patient wanted to leave to take care of legal matters he decided to leave AGAINST MEDICAL ADVICE after thorough discussion with the patient about risk of him leaving the hospital without any intervention at this time and him having such a large tumor which could cause obstruction and can even in the he still decided to leave AGAINST MEDICAL ADVICE. Patient understood all the risks about leaving AGAINST MEDICAL ADVICE at this time and he was instructed to come back to the ER if symptoms persist or worsen. Discharge plan: Return to the ED if you experience any projectile vomiting, increased abdominal pain, fevers, weakness, or bleeding per rectum. Problem list: #Symptomatic anemia likely secondary to #GI bleed in the setting of #Colonic mass, suspicion for malignancy #Lymphadenopathy #Osteolytic lesions #Weight loss #Hypokalemia #Asymptomatic bacteriuria Case disclosed with Attending Dr. Paul and my senior Dr. Fonseca PGY2 Fareed Tristan PGY1 Senior Resident Attestation: The patient was counseled regarding not to leave AMA. However, the patient reported that he wanted to leave AMA. When asked about if there is anything we can do so that he would stay, he reported that he would like to leave AMA. He was told that he might if he needs AMA, but he reported that he understands he might but he wanted to leave. He was prescribed pain medications, and recommended to return back to emergency department [facility] and follow-up with his PCP [facility]. I discussed with and supervised the internal affairs investigator physician involved in the care of this patient. I personally saw and examined the patient and discussed the assessment and plan with the entire medicine team, including my attending. Shin Fonseca MD PGY2 Internal Medicine Time Spent with Patient Time attestation: Total time spent providing and/or coordinating discharge services: >35 min Exam Vital Signs Temp Pulse Resp BP Pulse Ox O2 Del Method 97.7 F 60 18 102/67 98 Room Air 06/11/24 08:00 06/11/24 08:42 06/11/24 08:42 06/11/24 08:00 06/11/24 08:42 06/11/24 08:00 Narrative Exam General: A/O x3, no acute distress, thin/frail Eyes: PERRL, EOMI. Anicteric, vision grossly intact. Ears: No ear pain, no ear discharge, Hearing grossly intact. Nose: No nasal discharge. Mouth/Throat: Moist mucous membranes, no redness, no lesions. Neck: Neck supple, non-tender, no cervical lymphadenopathy. Lungs: Clear JAYASHREE to auscultation and percussion, No accessory muscle use. Cardio: Normal S1/S2, regular rhythm, no murmurs, no JVD. Abdomen: Soft, non-tender, palpable mass in R side abdomen, peristalsis present, no guarding or rebound. Extremities: Symmetrical, no significant deformities, no peripheral edema , non-tender, peripheral pulses presents. Skin: No rashes, no lesions, warm to touch. Neuro: No focal neurological deficits. Motor and sensory Discharge Plan Plan Patient Disposition: Left Against Medical Advice Disposition Comment: Stable Prescriptions/Referrals Prescriptions/Med Rec: New hydrocodone-acetaminophen 5-325 mg tablet 1 tab PO TID MDD 3 PRN (Reason: pain) Qty: 7 0RF No Action ibuprofen [IBU] 400 mg tablet 400 mg PO PRN PRN (Reason: pain) Referrals: Chris Florian MD [Primary Care Provider] - Patient/Caregiver Discharge Instructions Print Language: Chadian Quality Discharge Quality Measures VTE prophylaxis
== END 2024-06-11 15:32 | disposition left against medical advice (07) | DRG 254 ==
LOC: SERX 19:56 → SERHOLD 21:45 → S3SX 23:36
PROVIDERS: Nurse Practitioner Family; Specialist; Student in an Organized Health Care Education/Training Program; Admitting Provider Internal Medicine; Emergency Provider Emergency Medicine; PCP Family Medicine; Visit Provider Internal Medicine
DX: D49.0 Neoplasm of unspecified behavior of digestive system (principal); I49.3 Ventricular premature depolarization; R59.1 Generalized enlarged lymph nodes; D62 Acute posthemorrhagic anemia; Z63.4 Disappearance and death of family member; K92.2 Gastrointestinal hemorrhage, unspecified; K56.609 Unspecified intestinal obstruction, unspecified as to partial versus complete obstruction; M89.58 Osteolysis, other site; E87.6 Hypokalemia; R82.71 Bacteriuria; E46 Unspecified protein-calorie malnutrition; D75.839 Thrombocytosis, unspecified; Z68.1 Body mass index [BMI] 19.9 or less, adult; Z53.09 Procedure and treatment not carried out because of other contraindication; Z53.29 Procedure and treatment not carried out because of patient's decision for other reasons
CPT/HCPCS: 36415; 71260; 74177; 74270; 78306; 80053; 80061; 81001; 82270; 82378; 83036; 83735; 84100; 84443; 85014; 85018; 85025; 85610; 85730; 86850; 86900; 86901; 86923; A4649; A9503; J2270; J2405; J2470; J3480; J7030; J7120; P9016; Q9963; Q9967

== ENCOUNTER 2024-06-13 14:16 | Inpatient (IN) | payer MEDICAID, SELFPAY ==
[2024-06-13 14:17] VITALS: BMI 18.4
[2024-06-13 14:40] VITALS: BP 104/72; PULSE 112; RESP 20; TEMP 36.9; O2SAT 99
--- NOTE | 2024-06-13 15:03 | EDNOTE_ITS ---
ED Abdominal Pain RME/HPI General Chief Complaint: Abdominal Pain Stated complaint: TUMOR IN INTESTINE, WAS TOLD TO COME BY DR. ANNA Time seen by provider: 06/13/24 14:56 Arrival date/time: 06/13/24 14:16 This is a 63-year-old male that comes into the emergency room with complaints of needing surgery for Dr. Anna. Patient states that he was recently told he has a tumor to his intestine that needs to be removed. Patient reports history of recent weight loss. Recently admitted to the hospital on 06/09/2024 due to symptomatic anemia likely secondary to blood loss in the setting of colonic mass with suspicion for malignancy. Patient left AGAINST MEDICAL ADVICE. Patient reported that he needed to fix some legal matters. Related Data Home Medications ?Medication ?Instructions ?Recorded ?Confirmed ibuprofen 400 mg tablet (IBU) 400 mg PO PRN PRN pain 0 06/10/24 06/14/24 Previous Rx's ?Medication ?Instructions ?Recorded hydrocodone 5 mg-acetaminophen 325 1 tab PO TID PRN pa in #7 tabs 06/11/24 mg tablet Allergies Allergy/AdvReac Type Severity Reaction Status Date / Time No Known Allergies Allergy Verified 06/13/24 14:17 Review of Systems Review of Systems Systems Reviewed: All systems reviewed, normal except as documented Past Medical History Past Medical History Comments PMH COMMENT: Past medical history: ? Cervical spine injury Medication list: ?Ibuprofen 800 Mg p.o. 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 Marital Status: . of pancreatic cancer. Has 2 daughters Tobacco use: Denies ETHO use: Denies Illicit drug use: Denies Social History Note: lives alone. At baseline patient can independently ambulate. He was a vegan up until 2021, currently rarely consumes red/processed meat. Family History: Mother? of pancreatic cancer at 83 Maternal grandmother- of stomach cancer ED Exam General General appearance: Present alert and in no apparent distress Head Head exam: Present atraumatic Eye Eye exam: Present normal appearance, PERRL and EOMI ENT ENT exam: Present normal exam, normal oropharynx and mucous membranes moist Neck Neck exam: Present normal inspection, full ROM and trachea midline Chest Chest inspection: Present normal inspection and symmetric chest wall rise Respiratory Respiratory exam: Present normal lung sounds bilaterally Cardiovascular Cardiovascular exam: Present regular rate, normal rhythm and normal heart sounds Abdominal Exam Abdominal exam: Present soft Extremities Exam Extremities exam: Present normal inspection and full ROM Back Exam Back exam: Present normal inspection and full ROM Neurological Exam Neurological exam: Present alert, oriented X3 and CN II-XII intact Psychiatric Psychiatric exam: Present normal affect and normal mood Skin Skin exam: Present warm, dry, intact and normal color Course Quality Measures none Orders Category Date Time Status COVID-19 Screening Questionnaire NOW Care 06/13/24 18:42 Completed Decision to Admit X1 Care 06/13/24 18:41 Completed Consult to Gastroenterology Stat Cons 06/13/24 18:42 Ordered Consult to General Surgery Stat Cons 06/13/24 18:42 Ordered CBC Stat Lab 06/13/24 15:12 Completed Comprehensive Metabolic Panel Stat Lab 06/13/24 15:12 Completed PT [Prothrombin Time with INR] Stat Lab 06/13/24 15:12 Completed Type and Screen Stat Lab 06/13/24 15:12 Completed Urinalysis, C/S if Indicated Stat Lab 06/13/24 17:35 Completed Urine Culture Stat Lab 06/13/24 17:35 Completed cefTRIAXone [Rocephin] 1,000 mg Med 06/13/24 20:16 Discontinued Lidocaine 1% 20 ml [Xylocaine 1% 20 ML] 2.1 ml IM X1 Vital Signs Vital signs: Vital Signs Temperature 98.5 F 06/13/24 14:40 Pulse Rate 112 H 06/13/24 14:40 Respiratory Rate 20 06/13/24 14:40 Blood Pressure 104/72 06/13/24 14:40 Pulse Oximetry (%) 99 06/13/24 14:40 Oxygen Delivery Method Room Air 06/13/24 14:40 Abdominal Pain MDM MDM Narrative MDM Narrative:: Labs reviewed. WBC show 8.4, hemoglobin and hematocrit 9.3 and 29.7, platelets 496, neutrophil count 86. PT 14.6 INR 1.4. Urine shows likely UTI. Will treat with Rocephin. Patient was recently seen in the hospital and had left AGAINST MEDICAL ADVICE. Patient was post to have a procedure done. Looking over the notes it looks like patient was supposed to have an ex lap. Patient states he is here to get treatment to have colonic mass removed. I talked to Dr. Brown and I also talked to Dr. Anna who agreed to consult on patient. I called hospitalist team and they agreed to admit patient. Patient data External records reviewed:: [facility] previous records Clinical information provided by:: patient Social determinants that could affect healthcare access:: none Patient has the following chronic illnesses:: see hpi How is presenting disease/condition affected by chronic disease/condition?: exacerbated by Evaluation data The following diagnostics were reviewed and interpreted by me:: lab results Lab and/or radiology exams considered but not ordered:: none Interpretation Summary: see note Medications / Prescriptions Medications or Prescriptions considered but not ordered:: none Medication administrations:: Medication Administration History Acetaminophen (Acetaminophen 325 Mg Tablet) 650 mg PO Q6HR PRN PRN Reason: pain 1-3 or fever > 100.4 Stop: 07/21/24 09:33 Last Admin: 06/24/24 05:35 Dose: 650 mg Documented By: Admin: 06/23/24 13:16 Dose: 650 mg Documented By: Admin: 06/23/24 02:38 Dose: 650 mg Documented By: Admin: 06/22/24 16:08 Dose: 650 mg Documented By: Admin: 06/21/24 11:35 Dose: 650 mg Documented By: GC Morphine Sulfate (Morphine Sulf Inj 10 Mg/Ml Vial) 3 mg IVP Q6HR PRN PRN Reason: PAIN Stop: 06/30/24 19:44 Last Admin: 06/26/24 03:09 Dose: 3 mg Documented By: Admin: 06/25/24 20:26 Dose: 3 mg Documented By: JAYSHREE Ondansetron HCl (Ondansetron Inj 2 Mg/Ml Inj 2 Ml) 4 mg IV Q4HR PRN PRN Reason: NAUSEA OR VOMITING Stop: 07/15/24 19:15 Discontinued Medications Acetaminophen (Acetaminophen 325 Mg Tablet) 650 mg PO Q6H PRN PRN Reason: Pain and Fever >101 Stop: 07/13/24 20:34 Acetaminophen (Acetaminophen 325 Mg Tablet) 650 mg PO Q6H PRN PRN Reason: Pain(1-3) and Fever >101 Stop: 07/13/24 20:34 Hydrocodone Bitart/Acetaminophen (Hydrocodone/Apap 5/325 Tablet) 1 tab PO TID PRN PRN Reason: pain 4-10 Stop: 06/19/24 10:49 Last Admin: 06/14/24 13:28 Dose: 1 tab Documented By: ADEN Hydrocodone Bitart/Acetaminophen (Hydrocodone/Apap 5/325 Tablet) 1 tab PO Q4HR PRN PRN Reason: Pain 4-10 Stop: 06/25/24 13:33 Hydrocodone Bitart/Acetaminophen (Hydrocodone/Apap 5/325 Tablet) 1 tab PO Q4HR PRN PRN Reason: PAIN SCALE 4-6 (Moderate Stop: 06/25/24 21:01 Atropine Sulfate (Atropine Sulf Inj 0.4 Mg/Ml Vial) Confirm Administered Dose 0.4 mg .ROUTE .STK-MED ONE Stop: 06/15/24 12:20 Bupivacaine HCl (Bupivacaine Mpf 0.5% 10 Ml Vial) Confirm Administered Dose 30 ml .ROUTE .STK-MED ONE Stop: 06/15/24 11:53 Bupivacaine HCl (Bupivacaine Mpf 0.5% 10 Ml Vial) Confirm Administered Dose 30 ml .ROUTE .STK-MED ONE Stop: 06/15/24 15:43 Cefoxitin Sodium (Cefoxitin Sod Inj 1 Gm Vial) Confirm Administered Dose 1 gm .ROUTE .STK-MED ONE Stop: 06/15/24 12:50 Cefoxitin Sodium (Cefoxitin Sod Inj 1 Gm Vial) Confirm Administered Dose 1 gm .ROUTE .STK-MED ONE Stop: 06/15/24 12:51 Ceftriaxone Sodium 1,000 mg/ (Lidocaine HCl 2.1 ml) 0 mg IM X1 ONE Stop: 06/13/24 20:17 Last Admin: 06/13/24 20:49 Dose: 1,000 mg Documented By: DOMI Fentanyl Citrate (Fentanyl Cit Inj 50 Mcg/Ml Amp 2ml) Confirm Administered Dose 100 mcg .ROUTE .STK-MED ONE Stop: 06/15/24 11:57 Fentanyl Citrate (Fentanyl Cit Inj 50 Mcg/Ml Amp 2ml) 25 mcg IV Q5M PRN; Protocol PRN Reason: PAIN SCALE 7-10 (Severe Stop: 06/15/24 16:11 Last Admin: 06/15/24 18:00 Dose: 25 mcg Documented By: Admin: 06/15/24 17:33 Dose: 25 mcg Documented By: Admin: 06/15/24 17:04 Dose: 25 mcg Documented By: Admin: 06/15/24 16:24 Dose: 25 mcg Documented By: Comments: scanned but did not save before logging out Fentanyl Citrate (Fentanyl Cit Inj 50 Mcg/Ml Amp 2ml) 25 mcg IV Q5M PRN; Protocol PRN Reason: PAIN SCALE 4-6 (Moderate Stop: 06/15/24 16:11 Fentanyl Citrate (Fentanyl Cit Inj 50 Mcg/Ml Amp 2ml) 25 mcg IV Q5M PRN; Protocol PRN Reason: PAIN SCALE 1-3 (mild Stop: 06/15/24 16:11 Fentanyl Citrate (Fentanyl Cit Inj 50 Mcg/Ml Amp 2ml) Confirm Administered Dose 200 mcg .ROUTE .STK-MED ONE Stop: 06/16/24 10:43 Last Admin: 06/16/24 11:24 Dose: Not Given Documented By: EC Non-Admin Reason: Duplicate Medication on eMAR Heparin Sodium (Beef Lung) (Heparin Sod Lock Syr 100 Unit/Ml) Confirm Administered Dose 500 unit .ROUTE .STK-MED ONE Stop: 06/16/24 10:43 Last Admin: 06/16/24 11:24 Dose: Not Given Documented By: EC Non-Admin Reason: Duplicate Medication on eMAR Heparin Sodium (Beef Lung) (Heparin Sod Lock Syr 100 Unit/Ml) 500 unit [place] [id number] ONE Stop: 06/16/24 11:05 Last Admin: 06/16/24 10:42 Dose: 500 unit Documented By: EC Comments: PLACED ON STERILE FIELD Heparin Sodium (Porcine) (Heparin Sod Inj 5000 Unit/Ml Vial) 5,000 unit [place] Q12H [facility] Stop: 06/28/24 08:59 Last Admin: 06/15/24 13:01 Dose: Not Given Documented By: SL Non-Admin Reason: Held for Procedure Admin: 06/14/24 20:37 Dose: Not Given Documented By: AM Non-Admin Reason: Held for Procedure Admin: 06/14/24 09:50 Dose: Not Given Documented By: CS Non-Admin Reason: Held for Procedure Ceftriaxone Sodium/Dextrose (Rocephin/D5w 1gm Iv Premix) 50 mls @ 100 mls/hr IV HS SAM[facility]EL Stop: 06/21/24 20:59 Sodium Chloride (Ns) 1,000 mls @ 100 mls/hr IV Q10H [facility]EL Stop: 07/14/24 17:01 Last Admin: 06/15/24 04:14 Dose: 100 mls/hr Documented By: Infusion: 06/15/24 03:34 Dose: Infused Documented By: Admin: 06/14/24 17:34 Dose: 100 mls/hr Documented By: ADEN Sodium Chloride (Ns) 1,000 mls @ 90 mls/hr IV .Q11H7M [facility]EL Stop: 07/15/24 08:33 Potassium Chloride (Kcl Ivpb) 10 meq in 100 mls @ 100 mls/hr IV Q1H [facility] Stop: 06/15/24 14:15 Last Admin: 06/16/24 04:19 Dose: Not Given Documented By: TAVIA Non-Admin Reason: Duplicate Medication on eMAR Admin: 06/16/24 04:19 Dose: Not Given Documented By: TAVIA Non-Admin Reason: Duplicate Medication on eMAR Admin: 06/16/24 04:19 Dose: Not Given Documented By: TAVIA Non-Admin Reason: Duplicate Medication on eMAR Admin: 06/15/24 10:45 Dose: 100 mls/hr Documented By: CHRISTINA Cefoxitin Sodium 2 gm/ Sterile (Water) 10 mls @ 120 mls/hr IV X1 ONE Stop: 06/15/24 16:18 Cefoxitin Sodium 2 gm/ Sodium (Chloride) 50 mls @ 100 mls/hr IV X1 ONE Stop: 06/15/24 17:29 Last Admin: 06/15/24 17:10 Dose: 100 mls/hr Documented By: EF Sodium Chloride (Ns) 1,000 mls @ 100 mls/hr IV .Q10H [facility] Stop: 06/16/24 14:23 Last Admin: 06/16/24 08:06 Dose: 100 mls/hr Documented By: Infusion: 06/16/24 08:06 Dose: Infused Documented By: Admin: 06/15/24 22:07 Dose: 100 mls/hr Documented By: TAVIA Potassium Chloride (Kcl Ivpb) 10 meq in 100 mls @ 100 mls/hr IV Q1H [facility] Stop: 06/15/24 23:14 Last Admin: 06/15/24 23:23 Dose: 75 mls/hr Documented By: Infusion: 06/15/24 23:07 Dose: Infused Documented By: Admin: 06/15/24 21:47 Dose: 75 mls/hr Documented By: Infusion: 06/15/24 21:36 Dose: Infused Documented By: Admin: 06/15/24 20:16 Dose: 75 mls/hr Documented By: TAVIA Fat Emulsion Intravenous (Intralipid 20% Iv) 500 mls @ 32 mls/hr IV MoWeFr [facility]EL Stop: 07/16/24 17:59 Last Admin: 06/23/24 17:54 Dose: 32 mls/hr Documented By: Infusion: 06/22/24 10:15 Dose: Infused Documented By: Admin: 06/21/24 18:37 Dose: 32 mls/hr Documented By: Infusion: 06/19/24 08:55 Dose: Infused Documented By: Admin: 06/18/24 17:17 Dose: 32 mls/hr Documented By: Infusion: 06/17/24 09:08 Dose: Infused Documented By: Admin: 06/16/24 17:30 Dose: 32 mls/hr Documented By: KARAN Multivitamins/Minerals 10 ml/ (Amino Acids/Electrolytes) 2,010 mls @ 40.2 mls/hr IV QDAY@1800 ONE; Protocol Stop: 06/18/24 19:59 Last Infusion: 06/17/24 01:30 Dose: 60 mls/hr Documented By: Admin: 06/16/24 17:29 Dose: 40.2 mls/hr Documented By: KARAN Sodium Chloride (Ns) 1,000 mls @ 100 mls/hr IV .Q10H [facility] Stop: 07/16/24 17:59 Last Admin: 06/17/24 12:36 Dose: Not Given Documented By: SAE Non-Admin Reason: Wrong Time Admin: 06/16/24 20:39 Dose: 100 mls/hr Documented By: TAVIA Potassium Phosphate (Pot Phos 15 Mmol In Ns 250 Ml) 15 mmol in 250 mls @ 62.5 mls/hr IV Q4H [facility] Stop: 06/17/24 15:44 Last Admin: 06/17/24 14:23 Dose: 62.5 mls/hr Documented By: Infusion: 06/17/24 13:24 Dose: Infused Documented By: Admin: 06/17/24 09:24 Dose: 62.5 mls/hr Documented By: EDIL Acetaminophen (Ofirmev Inj) 1,000 mg in 100 mls @ 250 mls/hr IV X1 ONE Stop: 06/17/24 09:54 Last Admin: 06/17/24 10:51 Dose: 250 mls/hr Documented By: EDIL Multivitamins/Minerals 10 ml/ (Amino Acids/Electrolytes) 2,010 mls @ 40 mls/hr IV QDAY@1800 SAMUEL; Protocol Stop: 06/17/24 17:59 Last Admin: 06/17/24 11:59 Dose: Not Given Documented By: SAE Non-Admin Reason: reduced the rate on current bag to 40ML/HR Sodium Chloride (Ns) 1,000 mls @ 50 mls/hr IV .Q20H [facility] Stop: 07/17/24 12:34 Last Admin: 06/20/24 04:16 Dose: 50 mls/hr Documented By: Infusion: 06/20/24 03:39 Dose: Infused Documented By: Admin: 06/19/24 07:39 Dose: 50 mls/hr Documented By: Infusion: 06/19/24 06:39 Dose: Infused Documented By: Admin: 06/18/24 10:39 Dose: 50 mls/hr Documented By: Infusion: 06/18/24 10:23 Dose: Infused Documented By: Admin: 06/17/24 14:23 Dose: 50 mls/hr Documented By: CARI Multivitamins/Minerals 10 ml/Potassium Chloride 20 meq/Amino Acids/Electrolytes 1,020 mls @ 40 mls/hr IV QDAY@1800 SAMUEL; Protocol Stop: 06/18/24 17:59 Last Admin: 06/17/24 18:02 Dose: 40 mls/hr Documented By: CARI Potassium Phosphate (Pot Phos 15 Mmol In Ns 250 Ml) 15 mmol in 250 mls @ 62.5 mls/hr IV X1 ONE Stop: 06/18/24 12:24 Last Admin: 06/18/24 09:51 Dose: 62.5 mls/hr Documented By: CHRISTINA Acetaminophen (Ofirmev Inj) 1,000 mg in 100 mls @ 250 mls/hr IV Q6H [facility] Stop: 06/19/24 03:08 Last Admin: 06/18/24 09:52 Dose: 250 mls/hr Documented By: CHRISTINA Acetaminophen (Ofirmev Inj) 1,000 mg in 100 mls @ 250 mls/hr IV Q6HR PRN PRN Reason: PAIN Stop: 06/19/24 00:23 Multivitamins/Minerals 10 ml/Potassium Chloride 40 meq/Magnesium Sulfate 1 gm/ Amino Acids/Electrolytes 1,032 mls @ 40 mls/hr IV QDAY@1800 SAMUEL; Protocol Stop: 06/19/24 17:59 Last Admin: 06/18/24 17:17 Dose: 40 mls/hr Documented By: CHRISTINA Acetaminophen (Ofirmev Inj) 1,000 mg in 100 mls @ 250 mls/hr IV Q6H PRN PRN Reason: PAIN Stop: 06/20/24 10:04 Last Admin: 06/20/24 08:16 Dose: 250 mls/hr Documented By: Infusion: 06/20/24 02:15 Dose: Infused Documented By: Admin: 06/20/24 01:51 Dose: 250 mls/hr Documented By: Infusion: 06/19/24 19:35 Dose: Infused Documented By: Admin: 06/19/24 19:15 Dose: 250 mls/hr Documented By: Infusion: 06/19/24 10:36 Dose: Infused Documented By: Admin: 06/19/24 10:12 Dose: 250 mls/hr Documented By: CHRISTINA Potassium Phosphate (Pot Phos 15 Mmol In Ns 250 Ml) 15 mmol in 250 mls @ 62.5 mls/hr IV X1 ONE Stop: 06/19/24 16:59 Last Admin: 06/19/24 14:31 Dose: 62.5 mls/hr Documented By: CHRISTINA Multivitamins/Minerals 10 ml/Potassium Chloride 10 meq/Magnesium Sulfate 2 gm/ Amino Acids/Electrolytes 1,019 mls @ 40 mls/hr IV QDAY@1800 SAMUEL; Protocol Stop: 06/20/24 17:59 Last Admin: 06/19/24 17:22 Dose: 40 mls/hr Documented By: CHRISTINA Multivitamins/Minerals 10 ml/Potassium Chloride 40 meq/Magnesium Sulfate 4 gm/ Amino Acids/Electrolytes 2,038 mls @ 40 mls/hr IV QDAY@1800 SAMUEL; Protocol Stop: 06/21/24 17:59 Sodium Chloride (Ns) 1,000 mls @ 30 mls/hr IV .Q24H [facility] Stop: 07/20/24 10:16 Last Admin: 06/21/24 10:35 Dose: Not Given Documented By: CECE Non-Admin Reason: MD to DC order Admin: 06/20/24 12:27 Dose: Not Given Documented By: [facility] Non-Admin Reason: decreased bag to 30 ml/hr Multivitamins/Minerals 10 ml/Potassium Chloride 10 meq/Magnesium Sulfate 2 gm/ Amino Acids/Electrolytes 1,019 mls @ 60 mls/hr IV QDAY@1800 SAMUEL; Protocol Stop: 06/20/24 17:59 Last Admin: 06/20/24 12:28 Dose: Not Given Documented By: [facility] Non-Admin Reason: increased to 60ml/hr Multivitamins/Minerals 10 ml/Potassium Chloride 40 meq/Magnesium Sulfate 4 gm/ Amino Acids/Electrolytes 2,038 mls @ 60 mls/hr IV QDAY@1800 SAMUEL; Protocol Stop: 06/21/24 17:59 Last Admin: 06/20/24 17:09 Dose: 60 mls/hr Documented By: ELVIE Acetaminophen (Ofirmev Inj) 1,000 mg in 100 mls @ 250 mls/hr IV Q6H [facility] Stop: 06/21/24 11:59 Acetaminophen (Ofirmev Inj) 1,000 mg in 100 mls @ 250 mls/hr IV Q6H PRN PRN Reason: PAIN(1-1) Stop: 06/21/24 18:14 Last Admin: 06/20/24 20:07 Dose: 250 mls/hr Documented By: JONNA Multivitamins/Minerals 10 ml/Potassium Chloride 40 meq/Magnesium Sulfate 4 gm/ Amino Acids/Electrolytes 2,038 mls @ 80 mls/hr IV QDAY@1800 SAMUEL; Protocol Stop: 06/21/24 17:59 Last Admin: 06/21/24 10:30 Dose: Not Given Documented By: CECE Non-Admin Reason: already infusing, rate increased to 80ml/hr Potassium Chloride 20 meq/Multivitamins/Minerals 10 ml/Amino Acids/Electrolytes 2,020 mls @ 80 mls/hr IV .Q24H [facility]UEL; Protocol Stop: 06/24/24 17:59 Last Admin: 06/22/24 17:57 Dose: 80 mls/hr Documented By: Infusion: 06/22/24 17:57 Dose: Infused Documented By: Admin: 06/21/24 18:37 Dose: 80 mls/hr Documented By: GC Acetaminophen (Ofirmev Inj) 1,000 mg in 100 mls @ 250 mls/hr IV Q6H [facility] Stop: 06/22/24 06:13 Last Admin: 06/22/24 06:19 Dose: Not Given Documented By: CTF Non-Admin Reason: Per Protocol Admin: 06/22/24 00:03 Dose: 250 mls/hr Documented By: Infusion: 06/21/24 18:24 Dose: Infused Documented By: Admin: 06/21/24 18:00 Dose: 250 mls/hr Documented By: Infusion: 06/21/24 13:25 Dose: Infused Documented By: Admin: 06/21/24 13:01 Dose: 250 mls/hr Documented By: GC Potassium Acetate 50 meq/Multivitamins/Minerals 10 ml/Magnesium Sulfate 1 gm/ Amino Acids 2,037 mls @ 80 mls/hr IV QDAY@1800 SAMUEL; Protocol Stop: 06/24/24 17:59 Last Admin: 06/23/24 17:43 Dose: 80 mls/hr Documented By: NV Potassium Acetate 50 meq/Multivitamins/Minerals 10 ml/Magnesium Sulfate 1 gm/ Amino Acids 2,037 mls @ 40 mls/hr IV QDAY@1800 SAMUEL; Protocol Stop: 06/24/24 17:59 Potassium Acetate 40 meq/Magnesium Sulfate 1 gm/ Amino Acids 1,022 mls @ 90 mls/hr IV .[id number] SAMUEL; Protocol Stop: 06/25/24 15:42 Last Admin: 06/25/24 05:36 Dose: 90 mls/hr Documented By: MRStaci Infusion: 06/25/24 04:27 Dose: Infused Documented By: Admin: 06/24/24 17:05 Dose: 90 mls/hr Documented By: NV Lidocaine HCl (Lidocaine Jelly 2% 5 Ml Tube) Confirm Administered Dose 5 ml .ROUTE .STK-MED ONE Stop: 06/15/24 11:57 Lidocaine HCl (Lidocaine Inj 2% 20 Mg/Ml Syringe 5 Ml) Confirm Administered Dose 100 mg .ROUTE .STK-MED ONE Stop: 06/15/24 12:21 Lidocaine HCl (Lidocaine Inj Pf 1% 30 Ml Vial) Confirm Administered Dose 30 ml .ROUTE .STK-MED ONE Stop: 06/16/24 10:43 Last Admin: 06/16/24 11:26 Dose: Not Given Documented By: EC Non-Admin Reason: Duplicate Medication on eMAR Lidocaine HCl (Lidocaine Inj Pf 1% 30 Ml Vial) 30 ml INFL X1 ONE Stop: 06/16/24 11:05 Last Admin: 06/16/24 10:42 Dose: 30 ml Documented By: EC Comments: PLACED ON STERILE FIELD Metoclopramide HCl (Metoclopramide Inj 5 Mg/Ml Vial 2 Ml) Confirm Administered Dose 10 mg .ROUTE .STK-MED ONE Stop: 06/15/24 15:33 Midazolam HCl (Midazolam Inj 1 Mg/Ml Vial 2 Ml) Confirm Administered Dose 2 mg .ROUTE .STK-MED ONE Stop: 06/15/24 11:57 Morphine Sulfate (Morphine Sulf Inj 10 Mg/Ml Vial) 2 mg IVP Q4HR PRN PRN Reason: BREAKTRHOUGH PAIN Stop: 06/19/24 10:49 Last Admin: 06/15/24 18:13 Dose: 2 mg Documented By: Admin: 06/15/24 09:55 Dose: 2 mg Documented By: Admin: 06/15/24 04:32 Dose: 2 mg Documented By: Admin: 06/14/24 22:25 Dose: 2 mg Documented By: AM Morphine Sulfate (Morphine Sulf Inj 10 Mg/Ml Vial) 4 mg IVP Q4HR PRN PRN Reason: PAIN Stop: 06/20/24 19:15 Last Admin: 06/20/24 04:18 Dose: 4 mg Documented By: Admin: 06/19/24 20:11 Dose: 4 mg Documented By: Admin: 06/19/24 15:47 Dose: 4 mg Documented By: Admin: 06/19/24 11:52 Dose: 4 mg Documented By: Admin: 06/19/24 07:33 Dose: 4 mg Documented By: Admin: 06/19/24 03:23 Dose: 4 mg Documented By: Admin: 06/18/24 23:18 Dose: 4 mg Documented By: Admin: 06/18/24 19:14 Dose: 4 mg Documented By: Admin: 06/18/24 15:01 Dose: 4 mg Documented By: Admin: 06/18/24 10:39 Dose: 4 mg Documented By: Admin: 06/18/24 06:26 Dose: 4 mg Documented By: Admin: 06/18/24 00:31 Dose: 4 mg Documented By: Admin: 06/17/24 20:20 Dose: 4 mg Documented By: Admin: 06/17/24 16:16 Dose: 4 mg Documented By: Admin: 06/17/24 12:04 Dose: 4 mg Documented By: Admin: 06/17/24 07:57 Dose: 4 mg Documented By: EDIL Comments: scanner not working Admin: 06/17/24 03:36 Dose: 4 mg Documented By: Admin: 06/16/24 23:19 Dose: 4 mg Documented By: Admin: 06/16/24 19:14 Dose: 4 mg Documented By: Admin: 06/16/24 14:34 Dose: 4 mg Documented By: Admin: 06/16/24 10:22 Dose: 4 mg Documented By: Admin: 06/16/24 06:13 Dose: 4 mg Documented By: Admin: 06/16/24 02:17 Dose: 4 mg Documented By: Admin: 06/15/24 22:06 Dose: 4 mg Documented By: TAVIA Morphine Sulfate (Morphine Sulf Inj 10 Mg/Ml Vial) 4 mg IVP Q4HR PRN PRN Reason: PAIN Stop: 06/20/24 19:15 Last Admin: 06/20/24 12:15 Dose: 4 mg Documented By: Daiana Morphine Sulfate (Morphine Sulf Inj 10 Mg/Ml Vial) 4 mg IVP Q4HR PRN PRN Reason: Breakthrough Pain Stop: 06/20/24 19:15 Morphine Sulfate (Morphine Sulf Inj 10 Mg/Ml Vial) 4 mg IVP Q6HR PRN PRN Reason: Breakthrough Pain Stop: 06/22/24 17:35 Last Admin: 06/22/24 12:13 Dose: 4 mg Documented By: Admin: 06/22/24 06:32 Dose: 4 mg Documented By: Admin: 06/21/24 19:51 Dose: 4 mg Documented By: Admin: 06/21/24 07:42 Dose: 4 mg Documented By: Admin: 06/20/24 20:06 Dose: 4 mg Documented By: JONNA Morphine Sulfate (Morphine Sulf Inj 10 Mg/Ml Vial) 2 mg IVP Q4HR PRN PRN Reason: PAIN RATED 7-10 Stop: 06/27/24 17:36 Last Admin: 06/25/24 14:21 Dose: 2 mg Documented By: Admin: 06/25/24 05:40 Dose: 2 mg Documented By: Admin: 06/24/24 22:11 Dose: 2 mg Documented By: Admin: 06/24/24 17:57 Dose: 2 mg Documented By: Admin: 06/24/24 09:54 Dose: 2 mg Documented By: Admin: 06/23/24 23:20 Dose: 2 mg Documented By: Admin: 06/23/24 16:22 Dose: 2 mg Documented By: Admin: 06/23/24 08:04 Dose: 2 mg Documented By: Admin: 06/22/24 20:15 Dose: 2 mg Documented By: CHRIS Naloxone HCl (Naloxone Inj 0.4 Mg/Ml Vial) Confirm Administered Dose 0.4 mg .ROUTE .STK-MED ONE Stop: 06/16/24 10:42 Last Admin: 06/16/24 11:23 Dose: Not Given Documented By: EC Non-Admin Reason: Duplicate Medication on eMAR Ondansetron HCl (Ondansetron Inj 2 Mg/Ml Inj 2 Ml) 4 mg IV Q6HR PRN; Protocol PRN Reason: NAUSEA OR VOMITING Stop: 07/14/24 01:46 Ondansetron HCl (Ondansetron Inj 2 Mg/Ml Inj 2 Ml) 4 mg IV X1 ONE Stop: 06/15/24 14:12 Ondansetron HCl (Ondansetron Inj 2 Mg/Ml Inj 2 Ml) Confirm Administered Dose 4 mg .ROUTE .STK-MED ONE Stop: 06/15/24 15:33 Ondansetron HCl (Ondansetron Inj 2 Mg/Ml Inj 2 Ml) Confirm Administered Dose 4 mg .ROUTE .STK-MED ONE Stop: 06/16/24 10:42 Last Admin: 06/16/24 11:24 Dose: Not Given Documented By: EC Non-Admin Reason: Duplicate Medication on eMAR Polyethylene Glycol/Electrolytes (Na Brown/Nahco3/Sanket/Peg (Golytely) 4,000 Ml Btl) 4,000 ml PO X1 ONE Stop: 06/13/24 20:46 Last Admin: 06/13/24 23:13 Dose: 1 bottle Documented By: CG Potassium Chloride (Potassium Chloride 10% 20 Meq/15 Ml Udc) 40 meq PO X1 ONE Stop: 06/13/24 21:34 Last Admin: 06/13/24 21:49 Dose: 40 meq Documented By: LB Potassium Chloride (Potassium Chloride 20 Meq Tabcr) 40 meq PO X1 ONE Stop: 06/15/24 08:28 Last Admin: 06/15/24 10:38 Dose: Not Given Documented By: CHRISTINA Non-Admin Reason: Cancelled by Provider Propofol (Propofol Inj 10 Mg/Ml Vial 20 Ml) Confirm Administered Dose 200 mg IV .STK-MED ONE Stop: 06/15/24 11:57 Rocuronium [place] (Rocuronium Inj 10 Mg/Ml Vial 10 Ml) Confirm Administered Dose 100 mg .ROUTE .STK-MED ONE Stop: 06/15/24 11:57 Scopolamine (Scopolamine 1 Mg Tdsy) 1 mg TOP X1 ONE Stop: 06/14/24 02:01 Sugammadex Sodium (Sugammadex Inj 100 Mg/Ml 2ml Vial) Confirm Administered Dose 200 mg .ROUTE .STK-MED ONE Stop: 06/15/24 15:27 Thiamine HCl (Thiamine Inj 100 Mg/Ml Vial 2 Ml) 100 mg IV QDAY SAMUEL Stop: 06/23/24 10:14 Last Admin: 06/23/24 08:05 Dose: 100 mg Documented By: Admin: 06/22/24 09:47 Dose: 100 mg Documented By: Admin: 06/21/24 10:21 Dose: 100 mg Documented By: Admin: 06/20/24 08:18 Dose: 100 mg Documented By: Admin: 06/19/24 08:27 Dose: 100 mg Documented By: Admin: 06/18/24 09:50 Dose: 100 mg Documented By: Admin: 06/17/24 12:04 Dose: 100 mg Documented By: SG see [facility] Consultations Consultation(s) initiated? (list below): Yes Diagnosis Differential diagnosis abdominal pain: abdominal pain and other (gi bleed, mas in intestine) Most likely diagnosis given after review of the tests above:: previous mass seen in intestine Admission Indicated Admission indicated?: indicated Admission Request Was there a request for admission?: Yes Admission Attestation Admission request attestation: Discussed case with [] from Hospitalist service regarding admission. Discussed patients ED course, exam findings, labs, and radiology results. The Hospitalist [agrees,declines] to accept the patient for admission. Disposition Plan Disposition Plan: Admit Discharge Plan Plan Patient Disposition: Admit Acute Care w/in Hospital Problem List Clinical Impression: Anemia, Colonic mass, Acute UTI PA/MOTHERS HELPER Supervising Physician PA/MOTHERS HELPER Supervising Physician: radha
[2024-06-13 15:20] LABS: Basophils % (Auto) 0 % (0-2.5); Eosinophils % (Auto) 0 % (0-10); Hematocrit 29.7 % (41.0-53.0); Hemoglobin 9.3 g/dL (13.5-16.0); Immature Granulocytes % (Auto) 0 % (0-0); Immature Granulocytes Auto 0.02 Thou/mm3 (0.00-0.00); Lymphocytes # (Auto) 0.6 Thou/mm3 (1.0-4.8); Lymphocytes % (Auto) 8 % (10-50); Mean Corpuscular HGB Conc 31.3 g/dl (31.0-37.0); Mean Corpuscular Hemoglobin 21.8 pg (25.0-35.0); Mean Corpuscular Volume 70 fL (80-100); Monocytes # (Auto) 0.6 Thou/mm3 (0.0-0.8); Monocytes % (Auto) 7 % (0-12); Neutrophils # (Auto) 7.2 Thou/mm3 (1.8-7.7); Neutrophils % (Auto) 86 % (37-80); Nucleated Red Blood Cell % 0 /100 WBC (0); Platelet Count 496 Thou/mm3 (140-440); RDW Standard Deviation 58.1 fL (35.1-43.9); Red Blood Count 4.26 Miln/mm3 (4.50-5.90); White Blood Count 8.4 Thou/mm3 (3.8-10.6)
[2024-06-13 15:33] LABS: INR 1.4 (0.9-1.3); Prothrombin Time 14.6 Seconds (9.0-12.2)
[2024-06-13 15:45] VITALS: BP 105/71; PULSE 94; RESP 16; TEMP 37.1; O2SAT 98
[2024-06-13 15:50] LABS: Alanine Aminotransferase 7 U/L (10-49); Albumin, Serum 2.9 gm/dL (3.4-4.8); Albumin/Globulin Ratio 0.8 (1.2-2.2); Alkaline Phosphatase 71 U/L (46-116); Anion Gap 8 (7-16); Aspartate Amino Transferase 11 U/L (0-34); BUN/Creatinine Ratio 20 Ratio (12-20); Bilirubin,Total 0.7 mg/dL (0.3-1.2); Blood Urea Nitrogen 12 mg/dL (9-23); Calcium 8.3 mg/dL (8.3-10.6); Calcium (Corrected) 9.2 mg/dL (8.5-10.1); Carbon Dioxide 29.4 mMol/L (20.0-31.0); Chloride 99 mMol/L (98-107); Creatinine (Component) 0.6 mg/dL (0.6-1.3); Estimated Creatinine Clearance 102.4 mL/min (>60); Globulin 3.5 gm/dL (2.3-3.5); Glucose 104 mg/dL (74-106); Osmolality,Calculated 271 (275-295); Potassium 3.2 mMol/L (3.4-5.1); Sodium 136 mMol/L (136-145); Total Protein 6.4 gm/dL (5.7-8.2); eGFR > 60 See Note
[2024-06-13 18:01] LABS: Collection Type, Urine Voided
[2024-06-13 18:47] LABS: Bacteria,Urine Rare; Bilirubin,Urine 1+ (Negative); Blood,Urine Trace (Negative); Color,Urine Drk-Yellow (Lt Yel-Yel); Glucose, Urine Negative (Negative); Ketones,Urine 1+ (Negative); Leukocyte Esterase,Urine Positive (Negative); Nitrite,Urine Positive (Negative); Protein,Urine 1+ (Neg - Trace); RBC,Urine 3 /hpf (0-3); Specific Gravity,Urine 1.029 (1.001-1.035); Squamous Epithelial Cell,Urine < 1 /hpf (0-5); WBC,Urine 39 /hpf (0-5)
[2024-06-13 18:51] LABS: Clarity,Urine Hazy (Clear/Hazy); Culture Indicated,Urine Yes; Sperm,Urine Present
[2024-06-13 19:51] VITALS: BP 130/65; PULSE 86; RESP 18; TEMP 36.8; O2SAT 100
[2024-06-13 20:36] VITALS: BP 126/72; PULSE 64; RESP 18; TEMP 37; O2SAT 100
--- NOTE | 2024-06-13 20:38 | EKG_ITS ---
[facility] Test Date: 2024-06-13 Pat Name: TERESA SHULTZ Department: Room: - Gender: Male Pie Topper: : 1960 Requested By: Rey Ni Order Number: [id number] Reading MD: Rey Ni Measurements Intervals [place] Rate: 60 P: 62 RI: 144 QRS: -62 QRSD: 98 T: 62 QT: 425 QTc: 427 Interpretive Statements SINUS RHYTHM LEFT AXIS DEVIATION [QRS AXIS < -30] Compared to ECG 06/09/2024 15:03:51 Left-axis deviation now present Ventricular premature complex(es) no longer present /store/S0/[id number]/ecg/[id number].pdf
[2024-06-13] MEDS: cefTRIAXone 1,000 MG, LIDOCAINE 1% 20 ML 2.1 ML IM (20:49)
--- NOTE | 2024-06-13 20:52 | ESHP_ITS ---
Documentation for date of: 06/13/24 HPI History of Present Illness Chief complaint: Colon mass History of present illness: Mr. Solares is a 63-year-old male with past medical history of cervical spine injury who presented to [facility] emergency department on 06/13/2024 with a chief complaint of abdominal pain. Of note was admitted to the hospital on 06/09/2024 due to symptomatic anemia likely secondary to blood loss in the setting of colonic mass with suspicion for malignancy. During the previous hospital course patient's CT chest/abdomen/pelvis showed a large tumor mass in the cecum and ascending colon with adjacent lymphadenopathy as well as multiple osteolytic lesions in the iliac bones as well as the thoracic spine. Patient was unable to complete GoLytely prep for colonoscopy, oncology was consulted and there was high suspicion of malignancy possibly stage IV colon cancer with metastasis to bone. Patient had a barium enema x-ray which showed a total obstruction of the ascending colon by a large tumor mass and general surgeon stated that patient will need an ex lap at this time, but patient had to leave AGAINST MEDICAL ADVICE to take care of some personal legal matters. Since leaving AMA patient reported that he has been on a liquid diet has been taking PediaSure, Ensure clear, denies taking any solid foods. Denies any obstruction reports having frequent bowel movements, does complain of on and off pain in the right lower quadrant and did use [place] x 1 for it. Otherwise patient denies any blood in stool. ED Course: ED Vitals: On presentation BP 104/72, P112, RR 20, temp 98.5, O2 sat 99 on room air ED Labs: ED labs significant for RBC 4.26, hemoglobin 9.3, hematocrit 29.7, MCV 70, MCH 21.8, platelet count 496, PT 14.6, INR 1.4, potassium 3.2 osmolality 271, albumin 2.9. Urine significant for urine protein 1+, ketones 1+, bilirubin 1+, WBC 39, bacteria rare, sperm present ED Imaging: No imaging done in ED ED Treatment: GI and general surgery was consulted in ED, recommended admission. Patient admitted for possible ex lap and further workup for colon mass. Review of Systems Review of Systems Narrative Review of Systems: GENERAL: Denies fever/chills or diaphoresis. HEENT: Denies headaches or visual changes. Denies discharge. Neuro: Denies unusual weakness or difficulty speaking. CARDIO: Denies chest pain or palpitations. PULM: Denies SOB, coughing or wheezing. GI: As above URO: Denies burning/itching/pain/urinary changes. CASE WORKER: Denies menstrual changes, hot flashes. MSK/EXT/SKIN: Denies joint/skeletal/muscle pain, issues/changes in upper or lower extremities, itchiness, or superficial pain. PSYCH: Cooperative, pleasant mood & affect. The rest of the review of systems is otherwise negative. Past Medical History Past Medical History Comments PMH COMMENT: Past medical history: ? Cervical spine injury Medication list: ?Ibuprofen 800 Mg p.o. 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 Marital Status: . of pancreatic cancer. Has 2 daughters Tobacco use: Denies ETHO use: Denies Illicit drug use: Denies Social History Note: lives alone. At baseline patient can independently ambulate. He was a vegan up until 2021, currently rarely consumes red/processed meat. Family History: Mother? of pancreatic cancer at 83 Maternal grandmother- of stomach cancer Exam Vital Signs Temp Pulse Resp BP Pulse Ox O2 Del Method 98.6 F 64 18 126/72 100 Room Air 06/13/24 20:36 06/13/24 20:36 06/13/24 20:36 06/13/24 20:36 06/13/24 20:36 06/13/24 19:51 Narrative Exam Physical Exam General: Awake and in no acute distress. Conversational and non-toxic appearing. HEENT: Normocephalic, atraumatic, mucous membranes moist. Heart: Regular rate and rhythm, no murmurs. Lungs: Clear to auscultation with no wheezing or crackles. Abdomen: Soft, nondistended, nontender, positive bowel sounds. ?No guarding or rebound tenderness. Neurologic: Alert and oriented x3, no gross neurological deficit, and patient able to move all 4 extremities. Extremities: No edema. Skin: No rash or ecchymoses. Results: Labs 06/13/24 15:12 06/13/24 15:12 Labs: Short CBC 06/13/24 Range/Units 15:12 WBC 8.4 (3.8-10.6) Thou/mm3 Hgb 9.3 L (13.5-16.0) g/dL Hct 29.7 L (41.0-53.0) % Plt Count 496 H D (140-440) Thou/mm3 BMP 06/13/24 15:12 Sodium 136 Potassium 3.2 L Chloride 99 Carbon Dioxide 29.4 BUN 12 Creatinine 0.6 Glucose 104 Calcium 8.3 Liver Function 06/13/24 Range/Units 15:12 Total Bilirubin 0.7 (0.3-1.2) mg/dL AST 11 (0-34) U/L ALT 7 L (10-49) U/L Alkaline Phosphatase 71 (46-116) U/L Albumin 2.9 L (3.4-4.8) gm/dL Urine 06/13/24 Range/Units 17:35 Urine Color Drk-Yellow A (Lt Yel-Yel) Urine Clarity Hazy (Clear/Hazy) Urine pH 6.0 (5.0-7.0) Ur Specific [place] 1.029 (1.001-1.035) Urine Protein 1+ A (Neg - Trace) Urine Glucose (UA) Negative (Negative) Quality Measures Quality Measures VTE prophylaxis Medications Home Medications and Allergies Home Medications ?Medication ?Instructions ?Recorded ?Confirmed ?Type ibuprofen 400 mg tablet (IBU) 400 mg PO PRN PRN pain 0 06/10/24 06/10/24 History Allergies Allergy/AdvReac Type Severity Reaction Status Date / Time No Known Allergies Allergy Verified 06/13/24 14:17 Visit Medications Acetaminophen (Acetaminophen 325 Mg Tablet) 650 mg PO Q6H PRN PRN Reason: Pain and Fever >101 Stop: 07/13/24 20:34 Heparin Sodium (Porcine) (Heparin Sod Inj 5000 Unit/Ml Vial) 5,000 unit SC Q12H SAMUEL Stop: 06/28/24 08:59 Ceftriaxone Sodium/Dextrose (Rocephin/D5w 1gm Iv Premix) 50 mls @ 100 mls/hr IV QDAY SAMUEL Stop: 06/20/24 20:39 Discontinued Medications Ceftriaxone Sodium 1,000 mg/ (Lidocaine HCl 2.1 ml) 0 mg IM X1 ONE Stop: 06/13/24 20:17 Last Admin: 06/13/24 20:49 Dose: 1,000 mg Polyethylene Glycol/Electrolytes (Na Brown/Nahco3/Sanket/Peg (Golytely) 4,000 Ml Btl) 4,000 ml PO X1 ONE Stop: 06/13/24 20:46 Assessment & Plan Plan Assessment and plan: Summary: Mr. Solares is a 63-year-old male with past medical history of cervical spine injury who presented to [facility] emergency department on 06/13/2024 with a chief complaint of abdominal pain. Patient admitted for possible ex lap and further workup for colon mass. #Colonic mass, suspicion for malignancy #Microcytic hypochromic anemia #Lymphadenopathy #Osteolytic lesions #Weight loss ?Extensive imaging on last admission showed a total obstruction of the ascending colon by a large tumor mass and general surgeon stated that patient will need an ex lap at this time, but patient had to leave AGAINST MEDICAL ADVICE to take care of some personal legal matters. -Hemoglobin 9.3, hematocrit 29.7, MCV 70, MCH 21.8 on admission -Patient's FOBT was positive on previous admission, no active GI bleed noted.CEA 3.4 -Chest/abdomen/pelvis CTA (06/09/24) showed a large tumor mass in cecum and ascending colon with adjacent lymphadenopathy as well as fluid adjacent to mass suspicious for perforation versus peritoneal carcinomatosis. -X-ray barium enema showed obstruction of the ascending colon by tumor mass -Nuclear medicine bone scan shows Positive bone scan but nonspecific, the foci of increased uptake in the left ixth and seventh ribs appear to be old fractures on the CT chest study June 09, 2024 Plan: -Started on GoLytely, per GI recs -Clear liquid diet -Consulted GI, appreciate recommendations -Consulted general surgery, appreciate recommendations -Consulted oncology, appreciate recommendations -Monitor CBC in a.m. # Urinary tract infection Patient complains of increased urination frequency, denies any discomfort/pain Urine significant for urine protein 1+, ketones 1+, bilirubin 1+, WBC 39, bacteria rare Plan: -Ceftriaxone 1 g daily -Follow urine culture # Electrolyte imbalance # Hypokalemia -Correct and replace electrolytes as needed DVT prophylaxis: Heparin every 12 hours GI prophylaxis: Not indicated. Diet: Clear liquid, GoLytely prep Lines: Peripheral IV Code status: Full code Case discussed with Attending Dr. Gerhard Ni PGY1 Disclaimer: This note was dictated by speech recognition. Minor errors in nike athlete may be present due to voice recognition software. Attending Provider Attestation/Addendum I attest that I was physically present for the evaluation, physical examination, lab and imaging review of the patient with the residents. I discussed the case with the residents and agree with the findings and plans of care as documented above. Patient is a 63 years old male with past medical history of cervical spine injury who presented to the ED with complaint of abdominal pain. Patient was recently admitted on 06/09/2024 after hypotension and weight loss. CT abdomen was done which showed large tumor mass in the cecum and ascending colon with adjacent lymphadenopathy as well as multiple osteolytic lesions in the iliac bones and thoracic spine. There was also concern for early small bowel obstruction. Patient had low hemoglobin as well and received blood transfusion. Patient was initially planned for colonoscopy and biopsy of the cecal mass with general surgery. At that time, patient was unable to complete GoLytely for colonoscopy. And patient left AMA to take care of his personal legal matters. At home, patient has been on liquid diet. Denies nausea, vomiting, diarrhea. Vital signs are stable except for pulse of 112. Lab results show hemoglobin of 9.3. Urinalysis shows 39 WBC and rare bacteria. Patient also noted to have potassium of 3.2. Gastroenterology and general surgery was contacted by ED, recommended GoLytely with plan for colonoscopy and exploratory laparotomy. We will continue patient on clear liquid diet and GoLytely. We will also obtain oncology consultation. Patient started on IV Rocephin for UTI. We will also correct his electrolyte as needed. Andrés Hennessy MD
[2024-06-13] MEDS: POTASSIUM CHLORIDE 10% 20 MEQ/15 ML UDC 40 MEQ PO (21:49)
[2024-06-13 22:00] VITALS: BP 122/76; PULSE 64; RESP 18; TEMP 37; O2SAT 100
[2024-06-13 22:31] VITALS: BMI 17.2
--- NOTE | 2024-06-13 23:00 | PC.NURSE ---
Called MD Kim regarding Golytely, pt initially refusing golytely. MD Kim talked to the pts that he needs to drink this stuff to cleans his bowel for preparation of procedure. Pt verbalizes understanding, pt was informed to drink slowly as tolerated.
[2024-06-13] MEDS: NA SU/NAHCO3/KC/PEG (Golytely) 4,000 ML BTL 4000 ML PO (23:13)
[2024-06-13 23:27] VITALS: PULSE 60; RESP 16; RESP 99
[2024-06-14] VITALS (8 sets, daily range): BP systolic 110–127; BP diastolic 54–80; PULSE 63–99; RESP 16–98; TEMP 36.3–36.9; O2SAT 96–99; BMI 17.2
[2024-06-14 05:47] LABS: Basophils % (Auto) 0 % (0-2.5); Eosinophils % (Auto) 0 % (0-10); Hematocrit 29.9 % (41.0-53.0); Immature Granulocytes % (Auto) 0 % (0-0); Immature Granulocytes Auto 0.03 Thou/mm3 (0.00-0.00); Lymphocytes # (Auto) 0.7 Thou/mm3 (1.0-4.8); Lymphocytes % (Auto) 8 % (10-50); Mean Corpuscular HGB Conc 30.1 g/dl (31.0-37.0); Mean Corpuscular Hemoglobin 21.3 pg (25.0-35.0); Mean Corpuscular Volume 71 fL (80-100); Monocytes # (Auto) 0.6 Thou/mm3 (0.0-0.8); Monocytes % (Auto) 7 % (0-12); Neutrophils % (Auto) 84 % (37-80); Nucleated Red Blood Cell % 0 /100 WBC (0); Platelet Count 438 Thou/mm3 (140-440); RDW Standard Deviation 59.8 fL (35.1-43.9); Red Blood Count 4.23 Miln/mm3 (4.50-5.90); White Blood Count 8.4 Thou/mm3 (3.8-10.6)
--- NOTE | 2024-06-14 05:55 | PC.NURSE ---
Pt refusing the scopolamine patch at this time, explained to him that this patch help him to prevent vomiting, he said to hold off at this time.
[2024-06-14 06:02] LABS: INR 1.3 (0.9-1.3); Partial Thromboplastin Time 29.9 Seconds (22.0-36.0)
[2024-06-14 06:35] LABS: Alanine Aminotransferase < 7 U/L (10-49); Albumin, Serum 2.8 gm/dL (3.4-4.8); Albumin/Globulin Ratio 0.8 (1.2-2.2); Alkaline Phosphatase 70 U/L (46-116); Anion Gap 7 (7-16); Aspartate Amino Transferase 13 U/L (0-34); BUN/Creatinine Ratio 24 Ratio (12-20); Bilirubin,Total 0.6 mg/dL (0.3-1.2); Blood Urea Nitrogen 12 mg/dL (9-23); Calcium 8.7 mg/dL (8.3-10.6); Calcium (Corrected) 9.7 mg/dL (8.5-10.1); Carbon Dioxide 29.9 mMol/L (20.0-31.0); Chloride 101 mMol/L (98-107); Creatinine (Component) 0.5 mg/dL (0.6-1.3); Estimated Creatinine Clearance 114.5 mL/min (>60); Globulin 3.3 gm/dL (2.3-3.5); Glucose 80 mg/dL (74-106); Magnesium 2.2 mg/dL (1.6-2.6); Osmolality,Calculated 274 (275-295); Phosphorous 2.9 mg/dL (2.4-5.1); Potassium 4.5 mMol/L (3.4-5.1); Sodium 138 mMol/L (136-145); Total Protein 6.1 gm/dL (5.7-8.2); eGFR > 60 See Note
--- NOTE | 2024-06-14 10:00 | PC.SS ---
Patient Justo Solares is a 63 Year old male admitted for Colon Mass. SS met with patient at bedside. Patient reports he lives at home alone. He reports his niece, Jenn Kelyl is her surrogate decision maker [phone].. Patient reports he does not utilize any source of DME to assist with ambulation. Pharmacy of choice is [facility] in [place]. Patient is able to complete ADL's independently. Patients PCP is Chris Florian. At time of discharge patient will return home. Family will provide transportation. Discharge plan: Home Next of Kin: Niece, Jenn Kelly [phone].
--- NOTE | 2024-06-14 13:10 | PD.ONCPROG ---
Documentation for date of: 06/14/24 Subjective Subjective Interval history: Patient left AMA a few days ago to take care of legal affairs is now readmitted with anemia colonic mass with perforation and peritoneal carcinomatosis and suspicion of malignancy. Barium enema 06/10/2024 showed total obstruction of ascending colon by large tumor mass, and bone scan 06/11/2024 showed nonspecific uptake in left sixth seventh rib. Lab on readmission 06/11/2024 hemoglobin was 8.6. Prior to being transfused at time of prior admission on 06/09/2024 it was 6.8. Exam Vital Signs Temp Pulse Resp BP Pulse Ox O2 Del Method 97.3 F 73 16 119/77 98 Room Air 06/14/24 11:42 06/14/24 11:42 06/14/24 11:42 06/14/24 11:42 06/14/24 11:42 06/14/24 07:51 Objective Objective Narrative Objective Narrative: Appears comfortable this p.m. Labs 06/14/24 03:52 06/14/24 03:52 Labs: Laboratory Results - last 24 hr 06/13/24 06/13/24 06/14/24 15:12 17:35 03:52 WBC 8.4 8.4 RBC 4.26 L 4.23 L Hgb 9.3 L 9.0 L Hct 29.7 L 29.9 L MCV 70 L 71 L MCH 21.8 L 21.3 L MCHC 31.3 30.1 L RDW Std Deviation 58.1 H 59.8 H Plt Count 496 H D 438 D Neut % (Auto) 86 H 84 H Lymph % (Auto) 8 L 8 L [place] % (Auto) 7 7 Eos % (Auto) 0 0 Baso % (Auto) 0 0 Neut # (Auto) 7.2 7.0 Lymph # (Auto) 0.6 L 0.7 L [place] # (Auto) 0.6 0.6 Eos # (Auto) 0.0 0.0 Baso # (Auto) 0.0 0.0 Immature Gran # (Auto) 0.02 H 0.03 H Absolute Nucleated RBC 0.00 0.00 Immature Gran % 0 0 Nucleated RBC % 0 0 PT 14.6 H 14.0 H INR 1.4 H 1.3 APTT 29.9 Sodium 136 138 Potassium 3.2 L 4.5 D Chloride 99 101 Carbon Dioxide 29.4 29.9 Anion Gap 8 7 BUN 12 12 Creatinine 0.6 0.5 L Estim Creat Clear Calc 102.4 114.5 eGFR > 60 > 60 BUN/Creatinine Ratio 20 24 H Glucose 104 80 Calculated Osmolality 271 L 274 L Calcium 8.3 8.7 Corrected Calcium 9.2 9.7 Phosphorus 2.9 Magnesium 2.2 Total Bilirubin 0.7 0.6 AST 11 13 ALT 7 L < 7 L Alkaline Phosphatase 71 70 Total Protein 6.4 6.1 Albumin 2.9 L 2.8 L Globulin 3.5 3.3 Albumin/Globulin Ratio 0.8 L 0.8 L Ur Collection Type Voided Urine Color Drk-Yellow A Urine Clarity Hazy Urine pH 6.0 Ur Specific [place] 1.029 Urine Protein 1+ A Urine Glucose (UA) Negative Urine Ketones 1+ A Urine Blood Trace Urine Nitrite Positive Urine Bilirubin 1+ A Urine Urobilinogen (Auto) 8.0 Ur Leukocyte Esterase Positive Urine RBC 3 Urine WBC 39 H Ur Squamous Epith Cells < 1 Urine Bacteria Rare Urine Sperm Present A Ur Culture Indicated? Yes Blood Type O Positive Antibody Screen NEGATIVE Blood Bank Wristband ID Yes Assessment & Plan A&P Narrative 1. 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 2. Left AMA 06/11/2024 prior to scheduled colonoscopy surgery and readmitted now willing to pursue. 3. Will follow. Time Spent With Patient Time: Total time spent is greater than 50% in coordination of care (as documented) at patient's floor/unit and/or counseling patient:
[2024-06-14] MEDS: HYDROcodone/APAP 5/325 TABLET 1 TAB PO (13:28)
--- NOTE | 2024-06-14 14:04 | XR_ITS ---
Examination: Abdomen 2 views Technique one AP supine AP upright abdomen 2 views Exam date and time: June 14, 2024 1425 hours INDICATIONS: Abdominal pain this week, colon mass FINDINGS: Air distended small bowel loops No free air Prominent osteopenia IMPRESSION: Air distended small bowel loops worrisome for small bowel obstruction
--- NOTE | 2024-06-14 14:51 | PC.DIETICIAN ---
Dietitian note: Patient is at high risk for refeeding syndrome given very low BMI, poor oral intake, and significant weight loss. 1. Prioritize small, frequent meals, consider blenderized diet if advancement is warranted-pt is agreeable 2.Consider ONS (Ensure plus) if diet is advanced. 3.Recommend 100mg thiamine daily for 7 days; provide the first dose at least 30 minutes before starting nutrition. 4. Consider PPN if unable to start oral diet in next 48hrs or CPN if intermodal customer service nutrition warranted. Thank you
--- NOTE | 2024-06-14 15:41 | ESPR_ITS ---
Documentation for date of: 06/14/24 Subjective Subjective Narrative: The patient seen on consultation again. He was just discharged last week on Friday. He still not able to eat. He has had a small bowel movements. He is not able to take GoLytely to clean the bowel Exam Vital Signs Temp Pulse Resp BP Pulse Ox O2 Del Method 97.3 F 73 16 119/77 98 Room Air 06/14/24 11:42 06/14/24 11:42 06/14/24 11:42 06/14/24 11:42 06/14/24 11:42 06/14/24 07:51 Routine Abdominal Exam Comments: Abdominal examination shows no undue distention. Results Results: Laboratory Laboratory Narrative: Lab results are within normal limits Results: Imaging Imaging narrative: X-ray of the abdomen showed dilated loops of small bowel suggesting bowel obstruction Assessment & Plan Assessment Additional comments: Impression: Obstructing carcinoma of the cecum Awaiting GI evaluation Plan Plan: It appears the patient may not be ready for colonoscopy because it is dif ficult for him to clean the colon. He may have to explore him and do a palliative bypass.
[2024-06-14 16:15] LABS: Carcinoembryonic Antigen 3.6 ng/mL (0.0-5.0)
--- NOTE | 2024-06-14 17:26 | ESPR_ITS ---
<Statement entered by Kandy Barrientos MD - 06/14/24 19:26> I discussed with and supervised my co-resident involved in the care of this patient. I agree with the assessment and plan as documented above. Patient planned for colonoscopy however failed GoLytely prep. GI and surgery following, anticipate ex lap for mass resection. IV antibiotics for UTI discontinued as patient asymptomatic. Kandy Barrientos MD PGY-3 Documentation for date of: 06/14/24 Subjective Subjective Interval history: Patient's pain is well-controlled. He failed GoLytely this morning. Noted he was unable to pass bowel movements. Per general surgery patient will likely have ex lap tomorrow or the next day. Patient notes his obstruction is so severe that he is no longer passing gas. Made n.p.o. and started on IV maintenance fluids Exam Vital Signs Temp Pulse Resp BP Pulse Ox O2 Del Method 97.8 F 85 18 118/74 98 Room Air 06/14/24 16:00 06/14/24 16:00 06/14/24 16:06/14/24 16:00 06/14/24 16:06/14/24 07:51 Narrative Exam Constitutional: Cachectic, appears older than stated age Head: Normocephalic/Atraumatic Eyes: no conjunctival injection , symmetrical lids. ENMT: Moist Mucous Membranes CVS: RRR, S1 and S2 present RESP: no increased work of breathing, resting comfortably on room air GI: Soft, nondistended, nontender throughout, unable to appreciate a mass Skin: Warm to touch, Dry. Neuro: Alert and oriented x 3, moves all limbs spontaneously Psych: Appropriate mood and affect. Objective Labs 06/15/24 19:05 06/15/24 05:01 Labs: Laboratory Results - last 24 hr 06/13/24 06/14/24 17:35 03:52 WBC 8.4 RBC 4.23 L Hgb 9.0 L Hct 29.9 L MCV 71 L MCH 21.3 L MCHC 30.1 L RDW Std Deviation 59.8 H Plt Count 438 D Neut % (Auto) 84 H Lymph % (Auto) 8 L [place] % (Auto) 7 Eos % (Auto) 0 Baso % (Auto) 0 Neut # (Auto) 7.0 Lymph # (Auto) 0.7 L [place] # (Auto) 0.6 Eos # (Auto) 0.0 Baso # (Auto) 0.0 Immature Gran # (Auto) 0.03 H Absolute Nucleated RBC 0.00 Immature Gran % 0 Nucleated RBC % 0 PT 14.0 H INR 1.3 APTT 29.9 Sodium 138 Potassium 4.5 D Chloride 101 Carbon Dioxide 29.9 Anion Gap 7 BUN 12 Creatinine 0.5 L Estim Creat Clear Calc 114.5 eGFR > 60 BUN/Creatinine Ratio 24 H Glucose 80 Calculated Osmolality 274 L Calcium 8.7 Corrected Calcium 9.7 Phosphorus 2.9 Magnesium 2.2 Total Bilirubin 0.6 AST 13 ALT < 7 L Alkaline Phosphatase 70 Total Protein 6.1 Albumin 2.8 L Globulin 3.3 Albumin/Globulin Ratio 0.8 L Carcinoembryonic Ag 3.6 Ur Collection Type Voided Urine Color Drk-Yellow A Urine Clarity Hazy Urine pH 6.0 Ur Specific [place] 1.029 Urine Protein 1+ A Urine Glucose (UA) Negative Urine Ketones 1+ A Urine Blood Trace Urine Nitrite Positive Urine Bilirubin 1+ A Urine Urobilinogen (Auto) 8.0 Ur Leukocyte Esterase Positive Urine RBC 3 Urine WBC 39 H Ur Squamous Epith Cells < 1 Urine Bacteria Rare Urine Sperm Present A Ur Culture Indicated? Yes Quality Measures Quality Measures VTE prophylaxis Assessment & Plan Assessment Current Active Medications: Generic Name Dose Route Start Last Admin Trade Name Freq PRN Reason Stop Dose Admin Acetaminophen 650 mg 06/14/24 10:51 Acetaminophen 325 Mg Tablet PO 07/13/24 20:34 Q6H PRN Pain(1-3) and Fever >101 Hydrocodone Bitart/Acetaminophen 1 tab 06/14/24 10:50 06/14/24 13:28 Hydrocodone/Apap 5/325 Tablet PO 06/19/24 10:49 1 tab TID PRN Administration pain 4-10 Heparin Sodium (Porcine) 5,000 unit 06/14/24 09:00 06/14/24 09:50 Heparin Sod Inj 5000 Unit/Ml Vial SC 06/28/24 08:59 Not Given Q12H SAMUEL Sodium Chloride 1,000 mls @ 100 mls/hr 06/14/24 17:02 Ns IV 07/14/24 17:01 Q10H SAMUEL Morphine Sulfate 2 mg 06/14/24 10:50 Morphine Sulf Inj 10 Mg/Ml Vial IVP 06/19/24 10:49 Q4HR PRN BREAKTRHOUGH PAIN Plan Mr. Solares is a 63-year-old male with past medical history of cervical spine injury who presented to [facility] emergency department on 06/13/2024 with a chief complaint of abdominal pain. History of recent admission where he was diagnosed with colonic mass at that time. Unable to receive colonoscopy or ex lap as patient AMA at that time. Patient admitted for possible ex lap and further workup for colon mass. #Colonic mass, suspicion for malignancy #Microcytic hypochromic anemia #Lymphadenopathy #Osteolytic lesions #Weight loss ?Extensive imaging on last admission showed a total obstruction of the ascending colon by a large tumor mass and general surgeon stated that patient will need an ex lap at this time, but patient had to leave AGAINST MEDICAL ADVICE to take care of some personal legal matters. -Patient's FOBT was positive on previous admission, no active GI bleed noted.CEA 3.4 -Chest/abdomen/pelvis CTA (06/09/24) showed a large tumor mass in cecum and ascending colon with adjacent lymphadenopathy as well as fluid adjacent to mass suspicious for perforation versus peritoneal carcinomatosis. -X-ray barium enema showed obstruction of the ascending colon by tumor mass -Nuclear medicine bone scan shows Positive bone scan but nonspecific, the foci of increased uptake in the left sixth and seventh ribs appear to be old fractures on the CT chest study June 09, 2024 Plan: -Consulted GI, general surge, oncology -Patient failed trial of GoLytely this morning, is scheduled for ex lap either tomorrow or the next day. Notes that he is no longer passing gas. Made NPO. Started on maintenance IV fluids. -Tylenol, hydrocodone and morphine for pain PRN # Urinary tract infection- asymptomatic bacteria on UA Urine significant for urine protein 1+, ketones 1+, bilirubin 1+, WBC 39, bacteria rare s/p Ceftriaxone 1 g x 1 # Electrolyte imbalance # Hypokalemia -Correct and replace electrolytes as needed DVT prophylaxis: Heparin every 12 hours GI prophylaxis: Not indicated. Diet: NPO Lines: Peripheral IV Code status: Full code Case discussed with Attending Dr. Palencia, Andrew Anderson, PGY1 Attending Provider Attestation/Addendum Face to face evaluation was performed by me. I have personally seen and examined the patient. I discussed the assessment and plan with the entire medicine team. I reviewed available medical records, imaging studies, laboratory results. 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
[2024-06-14] MEDS: SODIUM CHLORIDE 0.9% 1000 ML 1,000 ML 100 ML IV (17:34)
--- NOTE | 2024-06-14 20:15 | ESCONSULT_ITS ---
HPI Data of Consult Requesting Physician: Harvey Palencia MD Primary Care Provider: Physician No Primary/Family Consult Narrative Reason for consult: Cecal mass colonic obstruction History of present illness: 63 years old male came to the emergency room subsequently admitted as he has a cecal carcinoma On previous admission he signed out AGAINST MEDICAL ADVICE because he had multiple legal issues which he needed to take care of which I totally understood cc:: cc: Harvey Palencia MD Review of Systems Review of Systems Systems Reviewed: All systems reviewed, normal except as documented Meds Home Medications and Allergies Home Medications ?Medication ?Instructions ?Recorded ?Confirmed ?Type ibuprofen 400 mg tablet (IBU) 400 mg PO PRN PRN pain 0 06/10/24 06/14/24 History Allergies Allergy/AdvReac Type Severity Reaction Status Date / Time No Known Allergies Allergy Verified 06/13/24 14:17 Exam Vital Signs Temp Pulse Resp BP Pulse Ox O2 Del Method 97.8 F 85 18 118/74 98 Room Air 06/14/24 16:00 06/14/24 16:00 06/14/24 16:00 06/14/24 16:00 06/14/24 16:00 06/14/24 07:51 Constitutional Comments: Alert oriented Routine Respiratory Exam Comments: Normal to auscultation Routine Abdominal Exam Comments: Soft nontender Results Labs 06/14/24 03:52 06/14/24 03:52 Labs: Short CBC 06/14/24 Range/Units 03:52 WBC 8.4 (3.8-10.6) Thou/mm3 Hgb 9.0 L (13.5-16.0) g/dL Hct 29.9 L (41.0-53.0) % Plt Count 438 D (140-440) Thou/mm3 BMP 06/14/24 03:52 Sodium 138 Potassium 4.5 D Chloride 101 Carbon Dioxide 29.9 BUN 12 Creatinine 0.5 L Glucose 80 Calcium 8.7 Liver Function 06/14/24 Range/Units 03:52 Total Bilirubin 0.6 (0.3-1.2) mg/dL AST 13 (0-34) U/L ALT < 7 L (10-49) U/L Alkaline Phosphatase 70 (46-116) U/L Albumin 2.8 L (3.4-4.8) gm/dL Assessment and Plan Additional Assessment & Plan Additional Plan: # Cecal mass Plan Clear liquid diet GoLytely once patient is clear schedule colonoscopy It may be possible to clear the colon because of the obstruction at the cecum At that time he may have to go surgery as an unprepped colon Thank you very much for the opportunity to participate in care of this patient
[2024-06-14] MEDS: MORPHINE SULF INJ 10 MG/ML VIAL 2 MG IVP (22:25)
[2024-06-15] VITALS (15 sets, daily range): BP systolic 102–139; BP diastolic 67–86; PULSE 58–106; RESP 14–99; TEMP 36.2–37.5; O2SAT 94–100
[2024-06-15] MEDS: SODIUM CHLORIDE 0.9% 1000 ML 1,000 ML 100 ML IV ×2 (04:14→22:07)
[2024-06-15] MEDS: MORPHINE SULF INJ 10 MG/ML VIAL 2 MG IVP ×3 (04:32→18:13)
[2024-06-15 06:19] LABS: Basophils % (Auto) 0 % (0-2.5); Eosinophils % (Auto) 0 % (0-10); Hemoglobin 9.1 g/dL (13.5-16.0); Immature Granulocytes % (Auto) 0 % (0-0); Immature Granulocytes Auto 0.02 Thou/mm3 (0.00-0.00); Lymphocytes # (Auto) 0.6 Thou/mm3 (1.0-4.8); Lymphocytes % (Auto) 8 % (10-50); Mean Corpuscular HGB Conc 30.3 g/dl (31.0-37.0); Mean Corpuscular Hemoglobin 21.8 pg (25.0-35.0); Mean Corpuscular Volume 72 fL (80-100); Monocytes # (Auto) 0.6 Thou/mm3 (0.0-0.8); Monocytes % (Auto) 7 % (0-12); Neutrophils # (Auto) 6.6 Thou/mm3 (1.8-7.7); Neutrophils % (Auto) 84 % (37-80); Nucleated Red Blood Cell % 0 /100 WBC (0); Platelet Count 483 Thou/mm3 (140-440); RDW Standard Deviation 62.2 fL (35.1-43.9); Red Blood Count 4.18 Miln/mm3 (4.50-5.90); White Blood Count 7.9 Thou/mm3 (3.8-10.6)
[2024-06-15 06:32] LABS: Alanine Aminotransferase < 7 U/L (10-49); Albumin, Serum 2.8 gm/dL (3.4-4.8); Alkaline Phosphatase 67 U/L (46-116); Anion Gap 10 (7-16); Aspartate Amino Transferase 15 U/L (0-34); BUN/Creatinine Ratio 38 Ratio (12-20); Bilirubin,Total 0.6 mg/dL (0.3-1.2); Blood Urea Nitrogen 15 mg/dL (9-23); Calcium 8.2 mg/dL (8.3-10.6); Calcium (Corrected) 9.2 mg/dL (8.5-10.1); Chloride 103 mMol/L (98-107); Creatinine (Component) 0.4 mg/dL (0.6-1.3); Estimated Creatinine Clearance 143.1 mL/min (>60); Globulin 2.9 gm/dL (2.3-3.5); Glucose 74 mg/dL (74-106); Osmolality,Calculated 282 (275-295); Phosphorous 3.1 mg/dL (2.4-5.1); Potassium 3.1 mMol/L (3.4-5.1); Sodium 142 mMol/L (136-145); Total Protein 5.7 gm/dL (5.7-8.2); eGFR > 60 See Note
[2024-06-15] MEDS: POTASSIUM CHL 10 mEq IVPB 10 MEQ/100 ML BAG 100 MEQ IV (10:45)
--- NOTE | 2024-06-15 12:30 | PC.SS ---
SS follow up note; Patient is pending a Colonoscopy.
--- NOTE | 2024-06-15 14:34 | ESPR_ITS ---
<Statement entered by Kandy Barrientos MD - 06/15/24 15:22> I discussed with and supervised my co-resident involved in the care of this patient. I agree with the assessment and plan as documented above. Patient seen and examined at bedside. Some abdominal discomfort, relieved by burping. Unable to flatulate. Hypokalemic on labs, repleted via IV as patient NPO - to undergo OR today for mass removal. Kandy Barrientos MD PGY-3 Documentation for date of: 06/15/24 Subjective Subjective Interval history: Patient has been n.p.o. since last night. Currently on maintenance IV fluids. Pain is well-controlled with morphine. Has surgery later today at around noon. Still is not passing gas. Exam Vital Signs Temp Pulse Resp BP Pulse Ox O2 Del Method 97.6 F 63 16 125/80 96 Room Air 06/15/24 08:00 06/15/24 08:00 06/15/24 08:00 06/15/24 08:00 06/15/24 08:00 06/15/24 08:00 Narrative Exam Constitutional: Cachectic, appears older than stated age Head: Normocephalic/Atraumatic Eyes: no conjunctival injection , symmetrical lids. ENMT: Moist Mucous Membranes CVS: RRR, S1 and S2 present RESP: no increased work of breathing, resting comfortably on room air GI: Soft, nondistended, nontender throughout, unable to appreciate a mass Skin: Warm to touch, Dry. Neuro: Alert and oriented x 3, moves all limbs spontaneously Psych: Appropriate mood and affect. Objective Labs 06/15/24 19:05 06/15/24 05:01 Labs: Laboratory Results - last 24 hr 06/13/24 06/14/24 06/15/24 15:12 03:52 05:01 WBC 7.9 RBC 4.18 L Hgb 9.1 L Hct 30.0 L MCV 72 L MCH 21.8 L MCHC 30.3 L RDW Std Deviation 62.2 H Plt Count 483 H D Neut % (Auto) 84 H Lymph % (Auto) 8 L [place] % (Auto) 7 Eos % (Auto) 0 Baso % (Auto) 0 Neut # (Auto) 6.6 Lymph # (Auto) 0.6 L [place] # (Auto) 0.6 Eos # (Auto) 0.0 Baso # (Auto) 0.0 Immature Gran # (Auto) 0.02 H Absolute Nucleated RBC 0.00 Immature Gran % 0 Nucleated RBC % 0 Sodium 142 Potassium 3.1 L D Chloride 103 Carbon Dioxide 29.0 Anion Gap 10 BUN 15 Creatinine 0.4 L Estim Creat Clear Calc 143.1 eGFR > 60 BUN/Creatinine Ratio 38 H Glucose 74 Calculated Osmolality 282 Calcium 8.2 L Corrected Calcium 9.2 Phosphorus 3.1 Magnesium 2.0 Total Bilirubin 0.6 AST 15 ALT < 7 L Alkaline Phosphatase 67 Total Protein 5.7 Albumin 2.8 L Globulin 2.9 Albumin/Globulin Ratio 1.0 L Carcinoembryonic Ag 3.6 Blood Type O Positive Antibody Screen NEGATIVE Crossmatch See Detail Blood Bank Wristband ID Yes Quality Measures Quality Measures VTE prophylaxis Assessment & Plan Assessment Current Active Medications: Generic Name Dose Route Start Last Admin Trade Name Freq PRN Reason Stop Dose Admin Acetaminophen 650 mg 06/14/24 10:51 Acetaminophen 325 Mg Tablet PO 07/13/24 20:34 Q6H PRN Pain(1-3) and Fever >101 Hydrocodone Bitart/Acetaminophen 1 tab 06/14/24 10:50 06/14/24 13:28 Hydrocodone/Apap 5/325 Tablet PO 06/19/24 10:49 1 tab TID PRN Administration pain 4-10 Fentanyl Citrate 25 mcg 06/15/24 14:11 Fentanyl Cit Inj 50 Mcg/Ml Amp 2ml IV 06/15/24 16:11 Q5M PRN PAIN SCALE 7-10 (Severe Protocol Fentanyl Citrate 25 mcg 06/15/24 14:11 Fentanyl Cit Inj 50 Mcg/Ml Amp 2ml IV 06/15/24 16:11 Q5M PRN PAIN SCALE 4-6 (Moderate Protocol Fentanyl Citrate 25 mcg 06/15/24 14:11 Fentanyl Cit Inj 50 Mcg/Ml Amp 2ml IV 06/15/24 16:11 Q5M PRN PAIN SCALE 1-3 (mild Protocol Heparin Sodium (Porcine) 5,000 unit 06/14/24 09:00 06/15/24 13:01 Heparin Sod Inj 5000 Unit/Ml Vial SC 06/28/24 08:59 Not Given Q12H [facility] Sodium Chloride 1,000 mls @ 90 mls/hr 06/15/24 08:34 Ns IV 07/15/24 08:33 .Q11H7M SAMUEL Morphine Sulfate 2 mg 06/14/24 10:50 06/15/24 09:55 Morphine Sulf Inj 10 Mg/Ml Vial IVP 06/19/24 10:49 2 mg Q4HR PRN Administration BREAKTRHOU PAIN Plan Mr. Solares is a 63-year-old male with past medical history of cervical spine injury who presented to [facility] emergency department on 06/13/2024 with a chief complaint of abdominal pain. History of recent admission where he was diagnosed with colonic mass at that time. Unable to receive colonoscopy or ex lap as patient AMA at that time. Patient admitted for possible ex lap and further workup for colon mass. #Colonic mass, suspicion for malignancy #Microcytic hypochromic anemia #Lymphadenopathy #Osteolytic lesions #Weight loss ?Extensive imaging on last admission showed a total obstruction of the ascending colon by a large tumor mass and general surgeon stated that patient will need an ex lap at this time, but patient had to leave AGAINST MEDICAL ADVICE to take care of some personal legal matters. -Patient's FOBT was positive on previous admission, no active GI bleed noted.CEA 3.4 -Chest/abdomen/pelvis CTA (06/09/24) showed a large tumor mass in cecum and ascending colon with adjacent lymphadenopathy as well as fluid adjacent to mass suspicious for perforation versus peritoneal carcinomatosis. -X-ray barium enema showed obstruction of the ascending colon by tumor mass -Nuclear medicine bone scan shows Positive bone scan but nonspecific, the foci of increased uptake in the left sixth and seventh ribs appear to be old fractures on the CT chest study June 09, 2024 Plan: -Consulted GI, general surge, oncology -Scheduled for ex lap later today. On maintenance IV fluids. NPO. -Tylenol, hydrocodone and morphine for pain PRN # Urinary tract infection- asymptomatic bacteria on UA Urine significant for urine protein 1+, ketones 1+, bilirubin 1+, WBC 39, bacteria rare s/p Ceftriaxone 1 g x 1 # Electrolyte imbalance # Hypokalemia -Correct and replace electrolytes as needed DVT prophylaxis: Heparin every 12 hours GI prophylaxis: Not indicated. Diet: NPO Lines: Peripheral IV Code status: Full code Case discussed with Attending Andrew Crocker, PGY1 Attending Provider Attestation/Addendum Face to face evaluation was performed by me. I have personally seen and examined the patient. I discussed the assessment and plan with the entire medicine team. I reviewed available medical records, imaging studies, laboratory results. I agree with the above subjective data, objective findings, assessment and plan except as corrected by me or noted below Right lower quadrant abdominal pain Colonic mass colonic obstruction possible stage IV metastatic colon ca - GI, Oncology and Surgery consulted could not tolerate Golytely- plan to take to OR by Surgery Pt apparently left AMA few days ago and came back to the ED
--- NOTE | 2024-06-15 15:36 | SUR.OPER ---
Daughter (Bridget) updated on case status/progress via phone by Maki KANG at approx. [phone].
--- NOTE | 2024-06-15 16:05 | SUR.PHASEI ---
pt arrived to PACU with oral airway which was removed upon arrival, breathing unlabored, dressing to abdomen clean, dry, and intact, report from Kade KANG and Dr Tavarez
[2024-06-15] MEDS: fentaNYL CIT INJ 50 mCg/ML AMP 2ML 25 MCG IV ×4 (16:24→18:00)
--- NOTE | 2024-06-15 16:32 | SUR.PHASEI ---
report to Audra KANG
--- NOTE | 2024-06-15 16:35 | SUR.PHASEI ---
Report received from Lynnette Barron RN. Resting with eyes closed, no s/o distress, pain or discomfort. Pt. edgar score 8, stable and ready to be taken back to room 363. Per Lynnette Barron RN, Dr. Fabian stated he was leaving and that he would not put transfer orders until he came back to hospital. Per Dr. Fabian patient is to remain in recovery until he comes back to put transfer orders in.
[2024-06-15] MEDS: CEFOXITIN 2 GM in SODIUM CHLORIDE 0.9% 50 ML IV (17:10)
--- NOTE | 2024-06-15 17:38 | SUR.PHASEI ---
Attempted calling Dr. Fabian for transfer orders, no answer. About 5 minutes later a [facility] employee called back and stated Dr. Fabian was in a procedure and that she could take a message. Asked her to please have Dr. Fabian call us back for transfer orders. Dr. Fabian called back about 15 minutes later and stated he wanted the patient to stay in recovery until he was able to come back and put orders in himself.
--- NOTE | 2024-06-15 18:05 | SUR.PHASEI ---
Responding to daughter, niece and staff appropriately. Dressing to abdomen remain C/D/I. Osuna catheter draining clear yellow urine.
--- NOTE | 2024-06-15 18:39 | PD.SUROPNT ---
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 Patient had large dilated ileum due to the obstruction. The distal portion of the colon did not show any evidence of fecal material or gas. Patient did not have any metastatic disease in the liver or in the peritoneal cavity. There was minimal ascites. I planned a palliative resection because of the extensive nature of this mass Procedure Description After the patient was brought to the operating room endotracheal anesthesia was given. Osuna catheter was inserted. Abdomen was prepped and draped with ChloraPrep solution. Timeout is performed. Patient received 2 g of Mefoxin for prophylaxis. Standard transverse incision was made on the right side and I entered the abdominal cavity. There was some fluid that was clear in the peritoneal cavity that is probably secondary to small bowel obstruction. It was not ascites due to malignancy. Exploration revealed the patient had a large mass on the cecum which was firmly adherent to the lateral abdominal wall. Small bowel was completely obstructed showing considerable dilatation of the ileum. The colon distal to the obstruction appears to be collapsed due to lack of any gas or stool. There are no peritoneal metastasis and I felt that the patient could be resected for cure with the en bloc resection. Even though we cannot do a curative resection I strongly felt that this lesion is completely resectable. Therefore I divided the small bowel about few feet away from the ileocecal junction. This was done at least 3 feet away from the ileocecal junction mostly because of there are some lymph nodes in the mesentery of the ileum. Ileocolic artery was tied with 0 silk suture and then the bowel was divided with ROXIE. Before dividing the bowel I used a pursestring suture to decompress the obstructed bowel which contained considerable amount liquid stools. Then I was able to explore the cecal lesion and I found out that it was stuck to the lateral abdominal wall. However it was movable and there does not seem to be any invasion into the duodenum or into the adjoining organs. Therefore I decided to do a standard right hemicolectomy. I mobilized the hepatic flexure and few centimeters away from the upper portion of the tumor which was involving the entire cecum and the ascending colon. This was stapled using ROXIE 75 with green james. Then the abdominal cavity was washed with saline solution. At this time I felt that the bowel could be approximated because there was no fecal contamination. Even though the small bowel was obstructed and contained liquid material after it was decompressed the bowel seem to be available for anastomosis. Since the colon distal to the obstruction was fairly clean I did not see any contraindication to anastomosis. At first I was planning not to do a resection and anastomosis. Then I mobilized the mass in the cecum and the ascending colon carefully dissecting around the lesion avoiding injury to the right ureter. This mass was then from the right kidney. The duodenum was moved away to avoid injury.. Then using the Enseal the mesentery was clamped then I delivered the mass intact. I found out that the adhesions over the lateral pelvic wall was probably contiguous invasion into the peritoneum. Therefore I excised the entire lateral gutter peritoneal wall by cutting all the way down to the muscles. I thus removed gross disease I could see on the lateral pelvic wall. Small mesenteric lymph nodes were removed by extending the resection over the small bowel. I felt that there is no contraindication once again to anastomose the small bowel to the hepatic flexure. This was done by using handsewn anastomosis with 3-0 silk for outer layer and 3-0 chromic for the inner layer with the [place] type of Closure. Then the larger rent in the message was left open and wound was irrigated extensively checked for any bleeding points. At this time patient received 2 units of packed cells because of his preoperative low hemoglobin. Then after confirming that the anastomosis was patent and safe by milking the small bowel contents into the colon and not noticing any leak to make. After making sure s that it is patent I closed the abdomen in 2 layers using 0 PDS for the peritoneum and the posterior rectus sheath and #1 strata fix for the anterior rectus sheath. Subcutaneous tissue was irrigated and closed with james and dressing was applied with Adaptic and 4 x 4 gauze. Patient tolerated the procedure well and left operating room in stable condition. Patient remained stable throughout the procedure. Anesthesia GETA Pathology / specimen Other (Lymph node from the mesentery, large mass involving the cecum and the ascending colon with wide portion of mesentery containing lymph nodes) IVF Infused 1,500 Estimated Blood Loss 250 Condition Stable Disposition PACU Surgeon Estefania Fabian MD Surgical Staff Operation Date: 06/15/24 12:00 Case Staff Anesthesiologist: Srinivasan Tavarez RN First Assistant: Lizzy Diggs
--- NOTE | 2024-06-15 19:00 | SUR.PHASEI ---
Taken to room 363 via bed. Dressing to abd. C/D/I. Osuna cath patent and secure to right thigh, draining clear yellow urine. No s/o distress. Responding to questions and commands appropriately. Harley KANG at bedside in room 363. Call light in hand .
--- NOTE | 2024-06-15 19:22 | PC.NURSE ---
Pt back in [id number] and was received from surgery at 1900, Angelika SIZE PAINTER at bedside, care continued
[2024-06-15 19:27] LABS: Basophils % (Auto) 0 % (0-2.5); Eosinophils % (Auto) 0 % (0-10); Hematocrit 37.2 % (41.0-53.0); Hemoglobin 11.6 g/dL (13.5-16.0); Immature Granulocytes % (Auto) 0 % (0-0); Immature Granulocytes Auto 0.05 Thou/mm3 (0.00-0.00); Lymphocytes # (Auto) 0.3 Thou/mm3 (1.0-4.8); Lymphocytes % (Auto) 2 % (10-50); Mean Corpuscular HGB Conc 31.2 g/dl (31.0-37.0); Mean Corpuscular Hemoglobin 23.4 pg (25.0-35.0); Mean Corpuscular Volume 75 fL (80-100); Monocytes # (Auto) 0.7 Thou/mm3 (0.0-0.8); Monocytes % (Auto) 4 % (0-12); Neutrophils # (Auto) 14.8 Thou/mm3 (1.8-7.7); Neutrophils % (Auto) 94 % (37-80); Nucleated Red Blood Cell % 0 /100 WBC (0); Platelet Count 578 Thou/mm3 (140-440); RDW Standard Deviation 63.1 fL (35.1-43.9); Red Blood Count 4.95 Miln/mm3 (4.50-5.90); White Blood Count 15.8 Thou/mm3 (3.8-10.6)
[2024-06-15] MEDS: POTASSIUM CHL 10 mEq IVPB 10 MEQ/100 ML BAG 75 MEQ IV ×3 (20:16→23:23)
--- NOTE | 2024-06-15 21:20 | PD.IMPROG ---
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 Exam Vital Signs Temp Pulse Resp BP Pulse Ox O2 Del Method O2 Flow Rate 99.5 F 106 H 19 132/80 H 94 L Room Air 2 06/15/24 20:00 06/15/24 20:00 06/15/24 20:00 06/15/24 20:00 06/15/24 20:00 06/15/24 20:00 06/15/24 16:15 Objective Labs 06/15/24 19:05 06/15/24 05:01 Labs: Laboratory Results - last 24 hr 06/13/24 06/15/24 06/15/24 15:12 05:01 19:05 WBC 7.9 15.8 H D RBC 4.18 L 4.95 Hgb 9.1 L 11.6 L D Hct 30.0 L 37.2 L MCV 72 L 75 L MCH 21.8 L 23.4 L MCHC 30.3 L 31.2 RDW Std Deviation 62.2 H 63.1 H Plt Count 483 H D 578 H D Neut % (Auto) 84 H 94 H Lymph % (Auto) 8 L 2 L [place] % (Auto) 7 4 Eos % (Auto) 0 0 Baso % (Auto) 0 0 Neut # (Auto) 6.6 14.8 H Lymph # (Auto) 0.6 L 0.3 L [place] # (Auto) 0.6 0.7 Eos # (Auto) 0.0 0.0 Baso # (Auto) 0.0 0.0 Immature Gran # (Auto) 0.02 H 0.05 H Absolute Nucleated RBC 0.00 0.00 Immature Gran % 0 0 Nucleated RBC % 0 0 Sodium 142 Potassium 3.1 L D Chloride 103 Carbon Dioxide 29.0 Anion Gap 10 BUN 15 Creatinine 0.4 L Estim Creat Clear Calc 143.1 eGFR > 60 BUN/Creatinine Ratio 38 H Glucose 74 Calculated Osmolality 282 Calcium 8.2 L Corrected Calcium 9.2 Phosphorus 3.1 Magnesium 2.0 Total Bilirubin 0.6 AST 15 ALT < 7 L Alkaline Phosphatase 67 Total Protein 5.7 Albumin 2.8 L Globulin 2.9 Albumin/Globulin Ratio 1.0 L Blood Type O Positive Antibody Screen NEGATIVE Crossmatch See Detail Blood Bank Wristband ID Yes Impressions Impression: # Status post exploratory laparotomy surgical resection of the obstructing cecal mass causing small bowel obstruction with diverting ileostomy Continue current management postoperatively Assessment & Plan A&P Narrative # Cecal mass Plan Clear liquid diet GoLytely once patient is clear schedule colonoscopy It may be possible to clear the colon because of the obstruction at the cecum At that time he may have to go surgery as an unprepped colon Thank you very much for the opportunity to participate in care of this patient Time Spent With Patient Time: Total time spent is greater than 50% in coordination of care (as documented) at patient's floor/unit and/or counseling patient:
[2024-06-15] MEDS: MORPHINE SULF INJ 10 MG/ML VIAL 4 MG IVP (22:06)
[2024-06-16] VITALS (11 sets, daily range): BP systolic 121–142; BP diastolic 77–97; PULSE 76–100; RESP 12–98; TEMP 36.7–37.1; O2SAT 95–100; BMI 17.2
[2024-06-16] MEDS: MORPHINE SULF INJ 10 MG/ML VIAL 4 MG IVP ×6 (02:17→23:19)
[2024-06-16 05:50] LABS: Basophils % (Auto) 0 % (0-2.5); Eosinophils % (Auto) 0 % (0-10); Hematocrit 36.8 % (41.0-53.0); Hemoglobin 11.3 g/dL (13.5-16.0); Immature Granulocytes % (Auto) 0 % (0-0); Immature Granulocytes Auto 0.04 Thou/mm3 (0.00-0.00); Lymphocytes # (Auto) 0.4 Thou/mm3 (1.0-4.8); Lymphocytes % (Auto) 3 % (10-50); Mean Corpuscular HGB Conc 30.7 g/dl (31.0-37.0); Mean Corpuscular Hemoglobin 23.3 pg (25.0-35.0); Mean Corpuscular Volume 76 fL (80-100); Monocytes # (Auto) 0.6 Thou/mm3 (0.0-0.8); Monocytes % (Auto) 5 % (0-12); Neutrophils # (Auto) 11.4 Thou/mm3 (1.8-7.7); Neutrophils % (Auto) 92 % (37-80); Nucleated Red Blood Cell % 0 /100 WBC (0); Platelet Count 378 Thou/mm3 (140-440); RDW Standard Deviation 66.9 fL (35.1-43.9); Red Blood Count 4.85 Miln/mm3 (4.50-5.90); White Blood Count 12.5 Thou/mm3 (3.8-10.6)
[2024-06-16 06:59] LABS: Alanine Aminotransferase < 7 U/L (10-49); Albumin, Serum 2.5 gm/dL (3.4-4.8); Albumin/Globulin Ratio 0.9 (1.2-2.2); Alkaline Phosphatase 62 U/L (46-116); Anion Gap 9 (7-16); Aspartate Amino Transferase 14 U/L (0-34); BUN/Creatinine Ratio 30 Ratio (12-20); Bilirubin,Total 1.1 mg/dL (0.3-1.2); Blood Urea Nitrogen 18 mg/dL (9-23); Calcium 7.9 mg/dL (8.3-10.6); Calcium (Corrected) 9.1 mg/dL (8.5-10.1); Carbon Dioxide 25.4 mMol/L (20.0-31.0); Chloride 108 mMol/L (98-107); Creatinine (Component) 0.6 mg/dL (0.6-1.3); Estimated Creatinine Clearance 95.4 mL/min (>60); Globulin 2.7 gm/dL (2.3-3.5); Glucose 129 mg/dL (74-106); Magnesium 1.9 mg/dL (1.6-2.6); Osmolality,Calculated 287 (275-295); Phosphorous 3.1 mg/dL (2.4-5.1); Sodium 142 mMol/L (136-145); Total Protein 5.2 gm/dL (5.7-8.2); eGFR > 60 See Note
--- NOTE | 2024-06-16 07:55 | XR_ITS ---
Examination: Central line placement, triple lumen catheter. Ultrasound-guided needle placement right internal jugular vein. Fluoroscopy AP Chest, portable single view Exam date and time: Every 2024 hours INDICATIONS: Need for long-term intravenous TPN. Informed consent provided Technique: A timeout was completed, verifying correct patient, procedure, site, positioning, and special equipment if applicable The patient was placed in a dependent position appropriate for central line placement based on the vein to be cannulated. The patient's right neck was prepped and draped in sterile fashion. Maximum Sterile Barrier Technique used including cap, mask, sterile gown, sterile gloves, and sterile full body drape. If ultrasound technique used: sterile gel and sterile probe covers. Hand Hygiene performed using proper scrub, soap and water, or alcohol-based hand rub. Site right portable apparatus utilized to confirm patency of the right internal jugular vein Utilizing ultrasonographic guidance successful 21-gauge needle puncture into the right internal jugular vein. Ultrasound images were recorded and stored. Successful micropuncture with a 21-gauge needle was performed. 0.18 wire guide was introduced into the IVC under fluoroscopic guidance. The wires is then exchanged for a 0.25 J-wire guide placed in the vena cava. The triple lumen catheter dilator is introduced, followed by the catheter in the SVC in proper position under fluoroscopic guidance. Successful aspiration of blood and flushing with heparinized saline is then performed in the 3 venous limbs. The catheter is sutured in place to the skin and a sterile dressing applied. Perfusion to the extremity distal to the point of catheter insertion was checked and found to be adequate The attending radiologist was present for the entire procedure Estimated blood loss1 cc. Findings: Under fluoroscopy, the tip of the catheter is in good position in the vena cava. Portable chest x-ray, post line placement, as ordered. Impression: Successful ultrasound-guided needle placement right internal jugular vein. Successful placement of triple lumen catheter central line, percutaneous. Fluoroscopy 0.01 minute radiation dose 0.28 milligray 1 spot fluoroscopic chest. AP portable chest completion procedure demonstrates satisfactory position central line tip SVC. May use central line.
[2024-06-16] MEDS: SODIUM CHLORIDE 0.9% 1000 ML 1,000 ML 100 ML IV ×2 (08:06→20:39)
[2024-06-16 09:26] LABS: INR 1.5 (0.9-1.3); Partial Thromboplastin Time 31.2 Seconds (22.0-36.0); Prothrombin Time 15.6 Seconds (9.0-12.2)
--- NOTE | 2024-06-16 10:03 | PC.DIETICIAN ---
Start CPN: D20% AA5% at 80 ml/hr with 500 ml 20% lipid 3 times a week (Fri-Fri-Fri). Start at 40 ml/hr for 8 hrs, then 60 ml/hr for 8 hrs, then advance to goal of 80 ml/hr. 1920 ml volume, 96 g AA, 384 g dextrose, 1690 total calories w/out lipids, 2119 total calories, NPC 1735. GIR=5.0mg/kg/min / LIR=0.8
[2024-06-16] MEDS: HEPARIN SOD LOCK SYR 100 UNIT/ML 500 UNIT STFIELD (10:42)
[2024-06-16] MEDS: LIDOCAINE INJ PF 1% 30 ML VIAL INFL (10:42)
--- NOTE | 2024-06-16 10:48 | PC.SS ---
Addendum entered by Valentina Rolon 06/16/24 14:30: Pt now requiring TPN Original Note: Rounding: POD #1 Dr. Brown, following
--- NOTE | 2024-06-16 11:08 | ESPR_ITS ---
<Statement entered by Kandy Barrientos MD - 06/16/24 16:27> I discussed with and supervised my co-resident involved in the care of this patient. I agree with the assessment and plan as documented above. Patient seen and examined at bedside. POD1, some mild tenderness along abdomen. Pain regimen morphine 4mg q4h prn. NPO for bowel rest, central line placed for TPN. Kandy Barrientos MD PGY-3 Documentation for date of: 06/16/24 Subjective Subjective Interval history: Patient doing well, pain well-controlled with current pain management. Remains NPO. Still not passing gas or having BM. Surgery ordered central line for TPN. Exam Vital Signs Temp Pulse Resp BP Pulse Ox O2 Del Method O2 Flow Rate 98.8 F 81 18 129/78 96 Room Air 2 06/16/24 08:00 06/16/24 08:00 06/16/24 08:00 06/16/24 08:00 06/16/24 08:00 06/16/24 08:00 06/16/24 00:00 Narrative Exam Constitutional: Cachectic, appears older than stated age Head: Normocephalic/Atraumatic Eyes: no conjunctival injection , symmetrical lids. ENMT: Moist Mucous Membranes CVS: RRR, S1 and S2 present RESP: no increased work of breathing, resting comfortably on room air GI: Soft, nondistended, tender throughout, right-sided dressing which is clean dry and intact. Skin: Warm to touch, Dry. Neuro: Alert and oriented x 3, moves all limbs spontaneously Psych: Appropriate mood and affect. Objective Labs 06/17/24 05:05 06/17/24 05:05 Labs: Laboratory Results - last 24 hr 06/13/24 06/15/24 06/16/24 15:12 19:05 04:19 WBC 15.8 H D 12.5 H RBC 4.95 4.85 Hgb 11.6 L D 11.3 L Hct 37.2 L 36.8 L MCV 75 L 76 L MCH 23.4 L 23.3 L MCHC 31.2 30.7 L RDW Std Deviation 63.1 H 66.9 H Plt Count 578 H D 378 D Neut % (Auto) 94 H 92 H Lymph % (Auto) 2 L 3 L [place] % (Auto) 4 5 Eos % (Auto) 0 0 Baso % (Auto) 0 0 Neut # (Auto) 14.8 H 11.4 H Lymph # (Auto) 0.3 L 0.4 L [place] # (Auto) 0.7 0.6 Eos # (Auto) 0.0 0.0 Baso # (Auto) 0.0 0.0 Immature Gran # (Auto) 0.05 H 0.04 H Absolute Nucleated RBC 0.00 0.00 Immature Gran % 0 0 Nucleated RBC % 0 0 PT INR APTT Sodium 142 Potassium 4.0 D Chloride 108 H Carbon Dioxide 25.4 Anion Gap 9 BUN 18 Creatinine 0.6 Estim Creat Clear Calc 95.4 eGFR > 60 BUN/Creatinine Ratio 30 H Glucose 129 H D Calculated Osmolality 287 Calcium 7.9 L Corrected Calcium 9.1 Phosphorus 3.1 Magnesium 1.9 Total Bilirubin 1.1 D AST 14 ALT < 7 L Alkaline Phosphatase 62 Total Protein 5.2 L Albumin 2.5 L Globulin 2.7 Albumin/Globulin Ratio 0.9 L Blood Type O Positive Antibody Screen NEGATIVE Crossmatch See Detail Blood Bank Wristband ID Yes 06/16/24 08:45 WBC RBC Hgb Hct MCV MCH MCHC RDW Std Deviation Plt Count Neut % (Auto) Lymph % (Auto) [place] % (Auto) Eos % (Auto) Baso % (Auto) Neut # (Auto) Lymph # (Auto) [place] # (Auto) Eos # (Auto) Baso # (Auto) Immature Gran # (Auto) Absolute Nucleated RBC Immature Gran % Nucleated RBC % PT 15.6 H INR 1.5 H APTT 31.2 Sodium Potassium Chloride Carbon Dioxide Anion Gap BUN Creatinine Estim Creat Clear Calc eGFR BUN/Creatinine Ratio Glucose Calculated Osmolality Calcium Corrected Calcium Phosphorus Magnesium Total Bilirubin AST ALT Alkaline Phosphatase Total Protein Albumin Globulin Albumin/Globulin Ratio Blood Type Antibody Screen Crossmatch Blood Bank Wristband ID Quality Measures Quality Measures VTE prophylaxis Assessment & Plan Assessment Current Active Medications: Generic Name Dose Route Start Last Admin Trade Name Freq PRN Reason Stop Dose Admin Acetaminophen 650 mg 06/14/24 10:51 Acetaminophen 325 Mg Tablet PO 07/13/24 20:34 Q6H PRN Pain(1-3) and Fever >101 Sodium Chloride 1,000 mls @ 100 mls/hr 06/15/24 18:24 06/16/24 08:06 Ns IV 06/16/24 14:23 100 mls/hr .Q10H SAMUEL Administration Morphine Sulfate 4 mg 06/15/24 19:16 06/16/24 10:22 Morphine Sulf Inj 10 Mg/Ml Vial IVP 06/20/24 19:15 4 mg Q4HR PRN Administration PAIN Ondansetron HCl 4 mg 06/15/24 19:16 Ondansetron Inj 2 Mg/Ml Inj 2 Ml IV 07/15/24 19:15 Q4HR PRN NAUSEA OR VOMITING Plan Mr. Solares is a 63-year-old male with past medical history of cervical spine injury who presented to [facility] emergency department on 06/13/2024 with a chief complaint of abdominal pain. History of recent admission where he was diagnosed with colonic mass at that time. Unable to receive colonoscopy or ex lap as patient AMA at that time. Patient admitted for possible ex lap and further workup for colon mass. #Colonic mass, suspicion for malignancy #Microcytic hypochromic anemia #Lymphadenopathy #Osteolytic lesions #Weight loss ?Extensive imaging on last admission showed a total obstruction of the ascending colon by a large tumor mass and general surgeon stated that patient will need an ex lap at this time, but patient had to leave AGAINST MEDICAL ADVICE to take care of some personal legal matters. -Patient's FOBT was positive on previous admission, no active GI bleed noted.CEA 3.4 -Chest/abdomen/pelvis CTA (06/09/24) showed a large tumor mass in cecum and ascending colon with adjacent lymphadenopathy as well as fluid adjacent to mass suspicious for perforation versus peritoneal carcinomatosis. -X-ray barium enema showed obstruction of the ascending colon by tumor mass -Nuclear medicine bone scan shows Positive bone scan but nonspecific, the foci of increased uptake in the left sixth and seventh ribs appear to be old fractures on the CT chest study ?Exploratory laparotomy on 06/15 with resection of the cecal cancer/ right hemicolectomy with anastomosis. Did not visualize any metastatic disease in the liver or peritoneal cavity. Plan: -Consulted GI, general surge, oncology -N.p.o. patient not passing gas. Scheduled for central line to start TPN later today. -Will place PT/OT orders tomorrow -Tylenol, hydrocodone and morphine for pain PRN # Urinary tract infection- asymptomatic bacteria on UA Urine significant for urine protein 1+, ketones 1+, bilirubin 1+, WBC 39, bacteria rare s/p Ceftriaxone 1 g x 1 # Electrolyte imbalance # Hypokalemia -Correct and replace electrolytes as needed DVT prophylaxis: Heparin every 12 hours GI prophylaxis: Not indicated. Diet: NPO Lines: Peripheral IV Code status: Full code Case discussed with Attending Dr. Jones, Andrew Anderson, PGY1 Attending Provider Attestation/Addendum Najma Whitman DO, attest that I was physically present for the vera portions of the service and evaluated the patient with the resident and I reviewed and discussed the case with the resident and agree with the resident's findings and plans of care as documented above Patient seen and evaluated this a.m. He states the pain has been well- controlled with morphine. Central line was placed this morning by IR for TPN. Patient remains n.p.o. for bowel rest. No acute events overnight otherwise.He remains afebrile. Pending pathology results.
--- NOTE | 2024-06-16 13:14 | ESPR_ITS ---
Documentation for date of: 06/16/24 Subjective Subjective Interval history: patient evaluated status post placement of a triple-lumen catheter Exam Vital Signs Temp Pulse Resp BP Pulse Ox O2 Del Method O2 Flow Rate 98.7 F 86 17 128/97 H 96 Room Air 0 06/16/24 12:00 06/16/24 12:00 06/16/24 12:00 06/16/24 12:00 06/16/24 12:00 06/16/24 12:00 06/16/24 12:00 Objective Labs 06/16/24 04:19 06/16/24 04:19 Labs: Laboratory Results - last 24 hr 06/13/24 06/15/24 06/16/24 15:12 19:05 04:19 WBC 15.8 H D 12.5 H RBC 4.95 4.85 Hgb 11.6 L D 11.3 L Hct 37.2 L 36.8 L MCV 75 L 76 L MCH 23.4 L 23.3 L MCHC 31.2 30.7 L RDW Std Deviation 63.1 H 66.9 H Plt Count 578 H D 378 D Neut % (Auto) 94 H 92 H Lymph % (Auto) 2 L 3 L [place] % (Auto) 4 5 Eos % (Auto) 0 0 Baso % (Auto) 0 0 Neut # (Auto) 14.8 H 11.4 H Lymph # (Auto) 0.3 L 0.4 L [place] # (Auto) 0.7 0.6 Eos # (Auto) 0.0 0.0 Baso # (Auto) 0.0 0.0 Immature Gran # (Auto) 0.05 H 0.04 H Absolute Nucleated RBC 0.00 0.00 Immature Gran % 0 0 Nucleated RBC % 0 0 PT INR APTT Sodium 142 Potassium 4.0 D Chloride 108 H Carbon Dioxide 25.4 Anion Gap 9 BUN 18 Creatinine 0.6 Estim Creat Clear Calc 95.4 eGFR > 60 BUN/Creatinine Ratio 30 H Glucose 129 H D Calculated Osmolality 287 Calcium 7.9 L Corrected Calcium 9.1 Phosphorus 3.1 Magnesium 1.9 Total Bilirubin 1.1 D AST 14 ALT < 7 L Alkaline Phosphatase 62 Total Protein 5.2 L Albumin 2.5 L Globulin 2.7 Albumin/Globulin Ratio 0.9 L Blood Type O Positive Antibody Screen NEGATIVE Crossmatch See Detail Blood Bank Wristband ID Yes 06/16/24 08:45 WBC RBC Hgb Hct MCV MCH MCHC RDW Std Deviation Plt Count Neut % (Auto) Lymph % (Auto) [place] % (Auto) Eos % (Auto) Baso % (Auto) Neut # (Auto) Lymph # (Auto) [place] # (Auto) Eos # (Auto) Baso # (Auto) Immature Gran # (Auto) Absolute Nucleated RBC Immature Gran % Nucleated RBC % PT 15.6 H INR 1.5 H APTT 31.2 Sodium Potassium Chloride Carbon Dioxide Anion Gap BUN Creatinine Estim Creat Clear Calc eGFR BUN/Creatinine Ratio Glucose Calculated Osmolality Calcium Corrected Calcium Phosphorus Magnesium Total Bilirubin AST ALT Alkaline Phosphatase Total Protein Albumin Globulin Albumin/Globulin Ratio Blood Type Antibody Screen Crossmatch Blood Bank Wristband ID Impressions Impression: # 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
[2024-06-16] MEDS: MULTIVITAMIN INJ 10 ML in AMINO ACID 5%/D20W E 2,000 ML 40.2 ML IV (17:29)
[2024-06-16] MEDS: FAT EMULSIONS 20% IV 500 ML 32 ML IV (17:30)
[2024-06-17] VITALS (7 sets, daily range): BP systolic 104–136; BP diastolic 73–84; PULSE 62–78; RESP 16–97; TEMP 36.6–37; O2SAT 97–98; BMI 13.0
[2024-06-17] MEDS: MORPHINE SULF INJ 10 MG/ML VIAL 4 MG IVP ×5 (03:36→20:20)
[2024-06-17 06:03] LABS: Basophils % (Auto) 0 % (0-2.5); Eosinophils % (Auto) 0 % (0-10); Hematocrit 30.2 % (41.0-53.0); Immature Granulocytes % (Auto) 0 % (0-0); Immature Granulocytes Auto 0.04 Thou/mm3 (0.00-0.00); Lymphocytes # (Auto) 0.5 Thou/mm3 (1.0-4.8); Lymphocytes % (Auto) 5 % (10-50); Mean Corpuscular HGB Conc 29.8 g/dl (31.0-37.0); Mean Corpuscular Hemoglobin 22.8 pg (25.0-35.0); Mean Corpuscular Volume 77 fL (80-100); Monocytes # (Auto) 0.5 Thou/mm3 (0.0-0.8); Monocytes % (Auto) 6 % (0-12); Neutrophils % (Auto) 88 % (37-80); Nucleated Red Blood Cell % 0 /100 WBC (0); Platelet Count 295 Thou/mm3 (140-440); RDW Standard Deviation 67.3 fL (35.1-43.9); Red Blood Count 3.94 Miln/mm3 (4.50-5.90)
[2024-06-17 06:43] LABS: Alanine Aminotransferase < 7 U/L (10-49); Albumin, Serum 2.3 gm/dL (3.4-4.8); Alkaline Phosphatase 56 U/L (46-116); Anion Gap 3 (7-16); Aspartate Amino Transferase 10 U/L (0-34); BUN/Creatinine Ratio 40 Ratio (12-20); Bilirubin,Total 0.5 mg/dL (0.3-1.2); Blood Urea Nitrogen 12 mg/dL (9-23); Calcium 7.7 mg/dL (8.3-10.6); Calcium (Corrected) 9.1 mg/dL (8.5-10.1); Carbon Dioxide 30.1 mMol/L (20.0-31.0); Chloride 107 mMol/L (98-107); Creatinine (Component) 0.3 mg/dL (0.6-1.3); Estimated Creatinine Clearance 190.8 mL/min (>60); Globulin 2.2 gm/dL (2.3-3.5); Glucose 151 mg/dL (74-106); Magnesium 1.9 mg/dL (1.6-2.6); Osmolality,Calculated 282 (275-295); Phosphorous 1.3 mg/dL (2.4-5.1); Potassium 3.2 mMol/L (3.4-5.1); Sodium 140 mMol/L (136-145); Total Protein 4.5 gm/dL (5.7-8.2); eGFR > 60 See Note
--- NOTE | 2024-06-17 08:53 | PD.SURPROG ---
Documentation for date of: 06/17/24 Subjective Subjective Narrative: Patient is doing reasonably well after surgery there was extensive. He has some incisional pain. Exam Vital Signs Temp Pulse Resp BP Pulse Ox O2 Del Method O2 Flow Rate 97.8 F 70 18 136/80 H 98 Aerosol Mask 0 06/17/24 08:00 06/17/24 08:00 06/17/24 08:00 06/17/24 08:00 06/17/24 08:00 06/17/24 04:00 06/16/24 12:00 His vital signs are normal Routine Abdominal Exam Comments: Abdominal examination shows silent abdomen with no bowel sounds at all Routine Exam Comments: Patient's urinary output is adequate Results Results: Laboratory Laboratory Narrative: Patient's laboratory shows normal WBC and slight anemia. However his albumin and protein are extremely low because of his malnutrition before the procedure Assessment & Plan Assessment Additional comments: Impression: Stable postoperative course following right hemicolectomy Plan Plan: We shall wait for oral feeding. Because of extremely low albumin I am worried his anastomosis may not heal. We have started him on TPN aggressively to support the nutrition parenterally and hoping that anastomosis would heal. Even though oral feeding is the best patient's obstructed bowel shows considerable amount of ileus and is not ready for food. Therefore I suggest we do not feed him and rely on the TPN. Procedures Procedures Explored laparotomy and resection of the cecal cancer on ilio transverse colostomy
[2024-06-17] MEDS: POT PHOS 15 mMol in NS 250 ML 15 MMOL/250 ML BAG 62.5 MMOL IV ×2 (09:24→14:23)
--- NOTE | 2024-06-17 10:12 | PC.NURSE ---
TIP BANDER STATES SPOKE WITH DR BLACK AND CONCERN FOR CHANGE IN TPN RATE AND NEED FOR VIT B1. STATES THAT DR BLACK APPROVES HER CHANGES AND ASKED THAT SHE RELAY IT TO THE NURSE TO PUT IN THE ORDER. DR BLACK CALLED TO VERIFY CHANGES RECOMMENDED. STATED TO PLEASE FOLLOW ALL RECOMMENDATION FROM TIP BANDER.
--- NOTE | 2024-06-17 10:33 | PC.DIETICIAN ---
Addendum by Slim Sanchez PhD, RD - 06/17/2024 at 0930: Pt is day 2 post op; started TPN yesterday; reviewed labs this morning and K+ and Phos dropped, 3.2 and 1.3, respectively. Called Dr. Brown and informed the pt may be experiencing refeeding syndrome. Dr. Brown authorized to modify the TPN goal rate from 80ml/hr to 40ml/hr and provide Thiamine injection, 100mg x 7days. JORGE LUIS Paniagua is aware. Pharmacy was also provided a new TPN formula sheet. D20% AA5% at 40 ml/hr with 500 ml 20% lipid 3 times a week (Mon-Wed-Fri). 960 ml volume, 192 g dextrose, 48 g AA, 845 total calories w/out lipids, 1274 total calories.
[2024-06-17] MEDS: ACETAMINOPHEN IVPB 1,000 MG/100 ML VIAL 250 MG IV (10:51)
--- NOTE | 2024-06-17 12:00 | PC.NURSE ---
assumed care of patient , patient alert and oriented gcs 15 n o signs of distress noted. call ight within reach
[2024-06-17] MEDS: THIAMINE INJ 100 MG/ML VIAL 2 ML IV (12:04)
--- NOTE | 2024-06-17 13:53 | PC.PT ---
Patient is safe to ambulate to the bathroom and is safe to sit in the chair at the bedside with 1 staff assist and a FWW. RN notified.
[2024-06-17] MEDS: SODIUM CHLORIDE 0.9% 1000 ML 1,000 ML 50 ML IV (14:23)
--- NOTE | 2024-06-17 15:10 | ESPR_ITS ---
<Statement entered by Kandy Barrientos MD - 06/17/24 15:57> I discussed with and supervised my co-resident involved in the care of this patient. I agree with the assessment and plan as documented above. Patient seen at bedside. POD 2. Incision sites clean, intact without drainage. On TPN now for nutrition. Will replete electrolytes as needed. Patient to work with PT today. Pending path report. Kandy Barrientos MD PGY-3 Documentation for date of: 06/17/24 Subjective Subjective Interval history: Patient doing well. Pain has been well-controlled. Had a brief episode of passing gas yesterday but nothing yet today. Started TPN yesterday. Ordered PT/OT today so patient can get up and out of bed. Exam Vital Signs Temp Pulse Resp BP Pulse Ox O2 Del Method O2 Flow Rate 97.8 F 70 18 123/77 97 Aerosol Mask 0 06/17/24 12:00 06/17/24 12:00 06/17/24 12:00 06/17/24 12:00 06/17/24 12:00 06/17/24 04:00 06/16/24 12:00 Narrative Exam Constitutional: Cachectic, appears older than stated age Head: Normocephalic/Atraumatic Eyes: no conjunctival injection , symmetrical lids. ENMT: Moist Mucous Membranes CVS: Regular rate and rhythm RESP: no increased work of breathing, resting comfortably on room air GI: Soft, nondistended, mildly tender throughout, 10 cm well-healed surgical site with james across the mid abdomen Skin: Warm to touch, Dry. Neuro: Alert and oriented x 3, moves all limbs spontaneously Psych: Appropriate mood and affect. Objective Labs 06/18/24 05:31 06/18/24 05:31 Labs: Laboratory Results - last 24 hr 06/13/24 06/17/24 15:12 05:05 WBC 9.0 RBC 3.94 L Hgb 9.0 L D Hct 30.2 L MCV 77 L MCH 22.8 L MCHC 29.8 L RDW Std Deviation 67.3 H Plt Count 295 D Neut % (Auto) 88 H Lymph % (Auto) 5 L [place] % (Auto) 6 Eos % (Auto) 0 Baso % (Auto) 0 Neut # (Auto) 8.0 H Lymph # (Auto) 0.5 L [place] # (Auto) 0.5 Eos # (Auto) 0.0 Baso # (Auto) 0.0 Immature Gran # (Auto) 0.04 H Absolute Nucleated RBC 0.00 Immature Gran % 0 Nucleated RBC % 0 Sodium 140 Potassium 3.2 L D Chloride 107 Carbon Dioxide 30.1 Anion Gap 3 L BUN 12 Creatinine 0.3 L Estim Creat Clear Calc 190.8 eGFR > 60 BUN/Creatinine Ratio 40 H Glucose 151 H Calculated Osmolality 282 Calcium 7.7 L Corrected Calcium 9.1 Phosphorus 1.3 L Magnesium 1.9 Total Bilirubin 0.5 D AST 10 ALT < 7 L Alkaline Phosphatase 56 Total Protein 4.5 L Albumin 2.3 L Globulin 2.2 L Albumin/Globulin Ratio 1.0 L Blood Type O Positive Antibody Screen NEGATIVE Crossmatch See Detail Blood Bank Wristband ID Yes Quality Measures Quality Measures VTE prophylaxis Assessment & Plan Assessment Current Active Medications: Generic Name Dose Route Start Last Admin Trade Name Freq PRN Reason Stop Dose Admin Acetaminophen 650 mg 06/14/24 10:51 Acetaminophen 325 Mg Tablet PO 07/13/24 20:34 Q6H PRN Pain(1-3) and Fever >101 Fat Emulsion Intravenous 500 mls @ 32 mls/hr 06/16/24 18:00 06/16/24 17:30 Intralipid 20% Iv IV 07/16/24 17:59 32 mls/hr MoWeFr SAMUEL Administration Potassium Phosphate 15 mmol in 250 mls @ 62.5 mls/hr 06/17/24 07:45 06/17/24 14:23 Pot Phos 15 Mmol In Ns 250 Ml IV 06/17/24 15:44 62.5 mls/hr Q4H SAMUEL Administration Multivitamins/Minerals 10 ml/ 2,010 mls @ 40 mls/hr 06/17/24 11:00 06/17/24 11:59 Amino Acids/Electrolytes IV 06/17/24 17:59 Not Given QDAY@1800 [facility] Protocol Sodium Chloride 1,000 mls @ 50 mls/hr 06/17/24 12:35 06/17/24 14:23 Ns IV 07/17/24 12:34 50 mls/hr .Q20H SAMUEL Administration Multivitamins/Minerals 10 ml/ 1,020 mls @ 40 mls/hr 06/17/24 18:00 Potassium Chloride 20 meq/ IV 06/18/24 17:59 Amino Acids/Electrolytes QDAY@1800 [facility] Protocol Morphine Sulfate 4 mg 06/15/24 19:16 06/17/24 12:04 Morphine Sulf Inj 10 Mg/Ml Vial IVP 06/20/24 19:15 4 mg Q4HR PRN Administration PAIN Ondansetron HCl 4 mg 06/15/24 19:16 Ondansetron Inj 2 Mg/Ml Inj 2 Ml IV 07/15/24 19:15 Q4HR PRN NAUSEA OR VOMITING Thiamine HCl 100 mg 06/17/24 10:15 06/17/24 12:04 Thiamine Inj 100 Mg/Ml Vial 2 Ml IV 06/23/24 10:14 100 mg QDAY [facility] Administration Plan Mr. Solares is a 63-year-old male with past medical history of cervical spine injury who presented to [facility] emergency department on 06/13/2024 with a chief complaint of abdominal pain. History of recent admission where he was diagnosed with colonic mass at that time. Unable to receive colonoscopy or ex lap as patient AMA at that time. Patient admitted for possible ex lap and further workup for colon mass. #Colonic mass, suspicion for malignancy #Microcytic hypochromic anemia #Lymphadenopathy #Osteolytic lesions #Weight loss ?Extensive imaging on last admission showed a total obstruction of the ascending colon by a large tumor mass and general surgeon stated that patient will need an ex lap at this time, but patient had to leave AGAINST MEDICAL ADVICE to take care of some personal legal matters. -Patient's FOBT was positive on previous admission, no active GI bleed noted.CEA 3.4 -Chest/abdomen/pelvis CTA (06/09/24) showed a large tumor mass in cecum and ascending colon with adjacent lymphadenopathy as well as fluid adjacent to mass suspicious for perforation versus peritoneal carcinomatosis. -X-ray barium enema showed obstruction of the ascending colon by tumor mass -Nuclear medicine bone scan shows Positive bone scan but nonspecific, the foci of increased uptake in the left sixth and seventh ribs appear to be old fractures on the CT chest study ?Exploratory laparotomy on 06/15 with resection of the cecal cancer/ right hemicolectomy with anastomosis. Did not visualize any metastatic disease in the liver or peritoneal cavity. Plan: -Consulted GI, general surge, oncology -Receiving TPN -N.p.o. patient not passing gas. -Placed PT/OT orders today -Pathology pending -Tylenol, hydrocodone and morphine for pain PRN # Urinary tract infection- asymptomatic bacteria on UA Urine significant for urine protein 1+, ketones 1+, bilirubin 1+, WBC 39, bacteria rare s/p Ceftriaxone 1 g x 1 # Electrolyte imbalance # Hypokalemia -Correct and replace electrolytes as needed DVT prophylaxis: Heparin every 12 hours GI prophylaxis: Not indicated. Diet: NPO Lines: Peripheral IV Code status: Full code Case discussed with Attending Dr. Jones, Andrew Anderson, PGY1 Attending Provider Attestation/Addendum Najma Whitman DO, attest that I was physically present for the vera portions of the service and evaluated the patient with the resident and I reviewed and discussed the case with the resident and agree with the resident's findings and plans of care as documented above patient seen and evaluated this AM. Pain is well controlled with IV morphine and tylenol. Patient denies any flatus or BM. He remains on TPN, will monitor closely for refeeding syndrome. Pathology of colon mass is pending. Continue with post op care. Patient states that he was able to get up with PT, but reported some pain with movement.
--- NOTE | 2024-06-17 16:09 | PC.SS ---
Addendum entered by Prema Grullon 06/17/24 16:23: SS follow up note; SS submitted FWW through [facility] [facility] platform. Original Note: SS follow up note; SS was informed by Mark from PT that patent was needing HH and FWW. SS will order FWW through [facility].
[2024-06-17] MEDS: POT CHL ADDITIVE IV (18:02)
[2024-06-17] MEDS: AMINO ACID IV (18:02)
[2024-06-17] MEDS: [UNRECOGNIZED DRUG - OTHER] IV (18:02)
[2024-06-17] MEDS: MULTIVITAMIN IV (18:02)
--- NOTE | 2024-06-17 21:34 | PD.IMPROG ---
Documentation for date of: 06/17/24 Subjective Subjective Interval history: Patient evaluated on TPN Exam Vital Signs Temp Pulse Resp BP Pulse Ox O2 Del Method O2 Flow Rate 98.1 F 67 17 126/77 97 Aerosol Mask 0 06/17/24 20:00 06/17/24 20:00 06/17/24 20:00 06/17/24 20:00 06/17/24 20:00 06/17/24 04:00 06/16/24 12:00 Objective Labs 06/17/24 05:05 06/17/24 05:05 Labs: Laboratory Results - last 24 hr 06/13/24 06/17/24 15:12 05:05 WBC 9.0 RBC 3.94 L Hgb 9.0 L D Hct 30.2 L MCV 77 L MCH 22.8 L MCHC 29.8 L RDW Std Deviation 67.3 H Plt Count 295 D Neut % (Auto) 88 H Lymph % (Auto) 5 L [place] % (Auto) 6 Eos % (Auto) 0 Baso % (Auto) 0 Neut # (Auto) 8.0 H Lymph # (Auto) 0.5 L [place] # (Auto) 0.5 Eos # (Auto) 0.0 Baso # (Auto) 0.0 Immature Gran # (Auto) 0.04 H Absolute Nucleated RBC 0.00 Immature Gran % 0 Nucleated RBC % 0 Sodium 140 Potassium 3.2 L D Chloride 107 Carbon Dioxide 30.1 Anion Gap 3 L BUN 12 Creatinine 0.3 L Estim Creat Clear Calc 190.8 eGFR > 60 BUN/Creatinine Ratio 40 H Glucose 151 H Calculated Osmolality 282 Calcium 7.7 L Corrected Calcium 9.1 Phosphorus 1.3 L Magnesium 1.9 Total Bilirubin 0.5 D AST 10 ALT < 7 L Alkaline Phosphatase 56 Total Protein 4.5 L Albumin 2.3 L Globulin 2.2 L Albumin/Globulin Ratio 1.0 L Blood Type O Positive Antibody Screen NEGATIVE Crossmatch See Detail Blood Bank Wristband ID Yes Impressions Impression: # Status post right hemicolectomy recovering postoperatively Continue current management Assessment & Plan A&P Narrative # Cecal mass Plan Clear liquid diet GoLytely once patient is clear schedule colonoscopy It may be possible to clear the colon because of the obstruction at the cecum At that time he may have to go surgery as an unprepped colon Thank you very much for the opportunity to participate in care of this patient Time Spent With Patient Time: Total time spent is greater than 50% in coordination of care (as documented) at patient's floor/unit and/or counseling patient:
[2024-06-18] VITALS (7 sets, daily range): BP systolic 109–128; BP diastolic 71–81; PULSE 58–70; RESP 16–98; TEMP 36.3–36.9; O2SAT 96–100; BMI 17.2
[2024-06-18] MEDS: MORPHINE SULF INJ 10 MG/ML VIAL 4 MG IVP ×6 (00:31→23:18)
[2024-06-18 05:49] LABS: Basophils % (Auto) 0 % (0-2.5); Eosinophils # (Auto) 0.1 Thou/mm3 (0.0-0.5); Eosinophils % (Auto) 1 % (0-10); Hematocrit 28.9 % (41.0-53.0); Hemoglobin 8.9 g/dL (13.5-16.0); Immature Granulocytes % (Auto) 0 % (0-0); Immature Granulocytes Auto 0.03 Thou/mm3 (0.00-0.00); Lymphocytes # (Auto) 0.6 Thou/mm3 (1.0-4.8); Lymphocytes % (Auto) 8 % (10-50); Mean Corpuscular HGB Conc 30.8 g/dl (31.0-37.0); Mean Corpuscular Hemoglobin 23.5 pg (25.0-35.0); Mean Corpuscular Volume 76 fL (80-100); Monocytes # (Auto) 0.3 Thou/mm3 (0.0-0.8); Monocytes % (Auto) 5 % (0-12); Neutrophils # (Auto) 6.1 Thou/mm3 (1.8-7.7); Neutrophils % (Auto) 86 % (37-80); Nucleated Red Blood Cell % 0 /100 WBC (0); Platelet Count 258 Thou/mm3 (140-440); RDW Standard Deviation 66.5 fL (35.1-43.9); Red Blood Count 3.79 Miln/mm3 (4.50-5.90); White Blood Count 7.1 Thou/mm3 (3.8-10.6)
[2024-06-18 06:39] LABS: Alanine Aminotransferase < 7 U/L (10-49); Albumin, Serum 2.3 gm/dL (3.4-4.8); Alkaline Phosphatase 55 U/L (46-116); Anion Gap 3 (7-16); Aspartate Amino Transferase 10 U/L (0-34); BUN/Creatinine Ratio 30 Ratio (12-20); Bilirubin,Total 0.7 mg/dL (0.3-1.2); Blood Urea Nitrogen 6 mg/dL (9-23); Calcium 7.8 mg/dL (8.3-10.6); Calcium (Corrected) 9.2 mg/dL (8.5-10.1); Chloride 103 mMol/L (98-107); Creatinine (Component) 0.2 mg/dL (0.6-1.3); Estimated Creatinine Clearance 286.2 mL/min (>60); Globulin 2.3 gm/dL (2.3-3.5); Glucose 113 mg/dL (74-106); Magnesium 1.8 mg/dL (1.6-2.6); Osmolality,Calculated 274 (275-295); Phosphorous 2.2 mg/dL (2.4-5.1); Potassium 3.2 mMol/L (3.4-5.1); Sodium 138 mMol/L (136-145); Total Protein 4.6 gm/dL (5.7-8.2); eGFR > 60 See Note
[2024-06-18] MEDS: THIAMINE INJ 100 MG/ML VIAL 2 ML IV (09:50)
[2024-06-18] MEDS: POT PHOS 15 mMol in NS 250 ML 15 MMOL/250 ML BAG 62.5 MMOL IV (09:51)
[2024-06-18] MEDS: ACETAMINOPHEN IVPB 1,000 MG/100 ML VIAL 250 MG IV (09:52)
[2024-06-18] MEDS: SODIUM CHLORIDE 0.9% 1000 ML 1,000 ML 50 ML IV (10:39)
--- NOTE | 2024-06-18 10:48 | PD.SURPROG ---
Documentation for date of: 06/18/24 Subjective Subjective Narrative: Patient is comfortable without any pain and he is not sure whether he passed gas Exam Vital Signs Temp Pulse Resp BP Pulse Ox O2 Del Method O2 Flow Rate 97.8 F 70 16 111/79 98 Room Air 0 06/18/24 04:00 06/18/24 04:00 06/18/24 04:00 06/18/24 04:00 06/18/24 04:00 06/18/24 04:00 06/18/24 00:00 His vital signs are stable Routine Abdominal Exam Comments: Abdominal examination shows low bowel sounds Results Results: Laboratory Laboratory Narrative: Laboratory work showed normal WBC. His phosphate is 2.2 and his potassium is still low with 3.2 Assessment & Plan Assessment Additional comments: Impression: Stable postoperative course so far Impending refeeding syndrome Plan Plan: We shall continue the advice of the dietitian regarding this TPN and substitutes. I will not be in a hurry to feed him orally because of the obstructed small bowel. We can support his nutrition through the TPN even though that is not the best route. Procedures Procedures Explored laparotomy and resection of the cecal cancer on ilio transverse colostomy
--- NOTE | 2024-06-18 14:55 | ESPR_ITS ---
<Statement entered by Kandy Barrientos MD - 06/18/24 15:49> I discussed with and supervised my co-resident involved in the care of this patient. I agree with the assessment and plan as documented above. Patient NPO, on TPN. Will replete electrolytes as needed. Was able to walk with PT today. Will continue pain management and keep patient NPO for bowel rest, advancing diet per surgery recommendations. Kandy Barrientos MD PGY-3 Documentation for date of: 06/18/24 Subjective Subjective Interval history: Patient doing well. Had a few episodes of passing gas yesterday. Still NPO. Pain was well-controlled with IV Tylenol. Currently on TPN. PT/OT to come work with patient today. Exam Vital Signs Temp Pulse Resp BP Pulse Ox O2 Del Method O2 Flow Rate 98.4 F 68 16 113/73 98 Room Air 0 06/18/24 12:00 06/18/24 13:51 06/18/24 13:51 06/18/24 12:00 06/18/24 12:00 06/18/24 12:00 06/18/24 12:00 Narrative Exam Constitutional: Cachectic, appears older than stated age Head: Normocephalic/Atraumatic Eyes: no conjunctival injection , symmetrical lids. ENMT: Moist Mucous Membranes CVS: Regular rate and rhythm RESP: no increased work of breathing, resting comfortably on room air GI: Soft, nondistended, mildly tender throughout, 10 cm well-healed surgical site with james across the mid abdomen Skin: Warm to touch, Dry. Neuro: Alert and oriented x 3, moves all limbs spontaneously Psych: Appropriate mood and affect. Objective Labs 06/18/24 05:31 06/18/24 05:31 Labs: Laboratory Results - last 24 hr 06/18/24 05:31 WBC 7.1 RBC 3.79 L Hgb 8.9 L Hct 28.9 L MCV 76 L MCH 23.5 L MCHC 30.8 L RDW Std Deviation 66.5 H Plt Count 258 D Neut % (Auto) 86 H Lymph % (Auto) 8 L [place] % (Auto) 5 Eos % (Auto) 1 Baso % (Auto) 0 Neut # (Auto) 6.1 Lymph # (Auto) 0.6 L [place] # (Auto) 0.3 Eos # (Auto) 0.1 Baso # (Auto) 0.0 Immature Gran # (Auto) 0.03 H Absolute Nucleated RBC 0.00 Immature Gran % 0 Nucleated RBC % 0 Sodium 138 Potassium 3.2 L Chloride 103 Carbon Dioxide 32.0 H Anion Gap 3 L BUN 6 L Creatinine 0.2 L Estim Creat Clear Calc 286.2 eGFR > 60 BUN/Creatinine Ratio 30 H Glucose 113 H Calculated Osmolality 274 L Calcium 7.8 L Corrected Calcium 9.2 Phosphorus 2.2 L Magnesium 1.8 Total Bilirubin 0.7 AST 10 ALT < 7 L Alkaline Phosphatase 55 Total Protein 4.6 L Albumin 2.3 L Globulin 2.3 Albumin/Globulin Ratio 1.0 L Quality Measures Quality Measures VTE prophylaxis Assessment & Plan Assessment Current Active Medications: Generic Name Dose Route Start Last Admin Trade Name Freq PRN Reason Stop Dose Admin Acetaminophen 650 mg 06/14/24 10:51 Acetaminophen 325 Mg Tablet PO 07/13/24 20:34 Q6H PRN Pain(1-3) and Fever >101 Fat Emulsion Intravenous 500 mls @ 32 mls/hr 06/16/24 18:00 06/16/24 17:30 Intralipid 20% Iv IV 07/16/24 17:59 32 mls/hr MoWeFr SAMUEL Administration Sodium Chloride 1,000 mls @ 50 mls/hr 06/17/24 12:35 06/18/24 10:39 Ns IV 07/17/24 12:34 50 mls/hr .Q20H SAMUEL Administration Multivitamins/Minerals 10 ml/ 1,020 mls @ 40 mls/hr 06/17/24 18:00 06/17/24 18:02 Potassium Chloride 20 meq/ IV 06/18/24 17:59 40 mls/hr Amino Acids/Electrolytes QDAY@1800 SAMUEL Administration Protocol Acetaminophen 1,000 mg in 100 mls @ 250 mls/hr 06/18/24 10:58 Ofirmev Inj IV 06/19/24 00:23 Q6HR PRN PAIN Morphine Sulfate 4 mg 06/15/24 19:16 06/18/24 10:39 Morphine Sulf Inj 10 Mg/Ml Vial IVP 06/20/24 19:15 4 mg Q4HR PRN Administration PAIN Ondansetron HCl 4 mg 06/15/24 19:16 Ondansetron Inj 2 Mg/Ml Inj 2 Ml IV 07/15/24 19:15 Q4HR PRN NAUSEA OR VOMITING Thiamine HCl 100 mg 06/17/24 10:15 06/18/24 09:50 Thiamine Inj 100 Mg/Ml Vial 2 Ml IV 06/23/24 10:14 100 mg QDAY SAMUEL Administration Plan Mr. Solares is a 63-year-old male with past medical history of cervical spine injury who presented to [facility] emergency department on 06/13/2024 with a chief complaint of abdominal pain. History of recent admission where he was diagnosed with colonic mass at that time. Unable to receive colonoscopy or ex lap as patient AMA at that time. Patient admitted for possible ex lap and further workup for colon mass. #Colonic mass, suspicion for malignancy #Microcytic hypochromic anemia #Lymphadenopathy #Osteolytic lesions #Weight loss ?Extensive imaging on last admission showed a total obstruction of the ascending colon by a large tumor mass and general surgeon stated that patient will need an ex lap at this time, but patient had to leave AGAINST MEDICAL ADVICE to take care of some personal legal matters. -Patient's FOBT was positive on previous admission, no active GI bleed noted.CEA 3.4 -Chest/abdomen/pelvis CTA (06/09/24) showed a large tumor mass in cecum and ascending colon with adjacent lymphadenopathy as well as fluid adjacent to mass suspicious for perforation versus peritoneal carcinomatosis. -X-ray barium enema showed obstruction of the ascending colon by tumor mass -Nuclear medicine bone scan shows Positive bone scan but nonspecific, the foci of increased uptake in the left sixth and seventh ribs appear to be old fractures on the CT chest study ?Exploratory laparotomy on 06/15 with resection of the cecal cancer/ right hemicolectomy with anastomosis. Did not visualize any metastatic disease in the liver or peritoneal cavity. -Pathology from surgery shows adenocarcinoma without spread to the lymph nodes. Plan: -Consulted GI, general surge, oncology -Receiving TPN, being overseen by dietitian -N.p.o. will proceed slowly with feedings until full return of bowel function. Watching for refeeding syndrome. -PT/OT orders placed -Tylenol, hydrocodone and morphine for pain PRN # Urinary tract infection- asymptomatic bacteria on UA Urine significant for urine protein 1+, ketones 1+, bilirubin 1+, WBC 39, bacteria rare s/p Ceftriaxone 1 g x 1 # Electrolyte imbalance # Hypokalemia -Correct and replace electrolytes as needed DVT prophylaxis: Heparin every 12 hours GI prophylaxis: Not indicated. Diet: NPO Lines: Peripheral IV Code status: Full code Case discussed with Attending Andrew Conrad, PGY1 Attending Provider Attestation/Addendum Najma Whitman DO, attest that I was physically present for the vera portions of the service and evaluated the patient with the resident and I reviewed and discussed the case with the resident and agree with the resident's findings and plans of care as documented above Patient seen and evaluated this afternoon. Patient has been ambulating in hallway without requiring assistance. He states he is feeling well. no acute events overnight. Pain improved with IV tylenol. No evidence of refeeding syndrome. Will replete electrolytes as needed. Continue with TPN and pain control PRN.
--- NOTE | 2024-06-18 15:41 | ESPR_ITS ---
Documentation for date of: 06/18/24 Subjective Subjective Interval history: Patient recovering satisfactorily postop day 3 , with final pathology revealing pT2N0 with invasive adenocarcinoma well-differentiated surgical margins clear, with no lymphovascular invasion perineural invasion not seen in 0 out of 40 lymph nodes involved. Op note also indicates no peritoneal mets or met disease in the liver, with minimal ascites. There was also no loss of expression in mismatch protein status. Currently receiving TPN. Exam Vital Signs Temp Pulse Resp BP Pulse Ox O2 Del Method O2 Flow Rate 98.4 F 68 16 113/73 98 Room Air 0 06/18/24 12:00 06/18/24 13:51 06/18/24 13:51 06/18/24 12:00 06/18/24 12:00 06/18/24 12:00 06/18/24 12:00 Narrative Exam Patient appears comfortable and ambulating. Objective Labs 06/18/24 05:31 06/18/24 05:31 Labs: Laboratory Results - last 24 hr 06/18/24 05:31 WBC 7.1 RBC 3.79 L Hgb 8.9 L Hct 28.9 L MCV 76 L MCH 23.5 L MCHC 30.8 L RDW Std Deviation 66.5 H Plt Count 258 D Neut % (Auto) 86 H Lymph % (Auto) [address] [place] % (Auto) 5 Eos % (Auto) 1 Baso % (Auto) 0 Neut # (Auto) 6.1 Lymph # (Auto) 0.[address] [place] # (Auto) 0.3 Eos # (Auto) 0.1 Baso # (Auto) 0.0 Immature Gran # (Auto) 0.03 H Absolute Nucleated RBC 0.00 Immature Gran % 0 Nucleated RBC % 0 Sodium 138 Potassium 3.2 L Chloride 103 Carbon Dioxide 32.0 H Anion Gap 3 L BUN 6 L Creatinine 0.2 L Estim Creat Clear Calc 286.2 eGFR > 60 BUN/Creatinine Ratio 30 H Glucose 113 H Calculated Osmolality 274 L Calcium 7.8 L Corrected Calcium 9.2 Phosphorus 2.2 L Magnesium 1.8 Total Bilirubin 0.7 AST 10 ALT < 7 L Alkaline Phosphatase 55 Total Protein 4.6 L Albumin 2.3 L Globulin 2.3 Albumin/Globulin Ratio 1.0 L Assessment & Plan A&P Narrative 1. Admitted with total obstruction of ascending colon, underwent resection of cecal cancer ileotransverse colostomy. 2. pT2N0 invasive adenocarcinoma well-differentiated surgical margins 40 lymph nodes negative. 3. Recovering satisfactorily now on TPN. 4. Informed patient about follow-up at the cancer treatment center, after receiving referral from primary MD. Time Spent With Patient Time: Total time spent is greater than 50% in coordination of care (as documented) at patient's floor/unit and/or counseling patient:
[2024-06-18] MEDS: POT CHL ADDITIVE IV (17:17)
[2024-06-18] MEDS: MULTIVITAMIN IV (17:17)
[2024-06-18] MEDS: MAGNESIUM SULF IV (17:17)
[2024-06-18] MEDS: [UNRECOGNIZED DRUG - OTHER] IV (17:17)
[2024-06-18] MEDS: FAT EMULSIONS 20% IV 500 ML 32 ML IV (17:17)
--- NOTE | 2024-06-18 18:28 | PC.NURSE ---
Pt ambulated in [place], pt went around both nurses station x 2
--- NOTE | 2024-06-18 18:29 | PC.NURSE ---
Pt heart rate is 45- 55, pt is asymptomatic, Dr. Alonso is aware
--- NOTE | 2024-06-18 20:38 | ESPR_ITS ---
Documentation for date of: 06/18/24 Subjective Subjective Interval history: Final stage pT2 N0 39 lymph nodes negative for any invasion patient already evaluated by Dr. Lraes the radiation oncologist Exam Vital Signs Temp Pulse Resp BP Pulse Ox O2 Del Method O2 Flow Rate 97.3 F 58 L 16 121/81 96 Room Air 0 06/18/24 16:00 06/18/24 16:00 06/18/24 16:00 06/18/24 16:00 06/18/24 16:00 06/18/24 16:00 06/18/24 16:00 Objective Labs 06/18/24 05:31 06/18/24 05:31 Labs: Laboratory Results - last 24 hr 06/18/24 05:31 WBC 7.1 RBC 3.79 L Hgb 8.9 L Hct 28.9 L MCV 76 L MCH 23.5 L MCHC 30.8 L RDW Std Deviation 66.5 H Plt Count 258 D Neut % (Auto) 86 H Lymph % (Auto) 8 L [place] % (Auto) 5 Eos % (Auto) 1 Baso % (Auto) 0 Neut # (Auto) 6.1 Lymph # (Auto) 0.6 L [place] # (Auto) 0.3 Eos # (Auto) 0.1 Baso # (Auto) 0.0 Immature Gran # (Auto) 0.03 H Absolute Nucleated RBC 0.00 Immature Gran % 0 Nucleated RBC % 0 Sodium 138 Potassium 3.2 L Chloride 103 Carbon Dioxide 32.0 H Anion Gap 3 L BUN 6 L Creatinine 0.2 L Estim Creat Clear Calc 286.2 eGFR > 60 BUN/Creatinine Ratio 30 H Glucose 113 H Calculated Osmolality 274 L Calcium 7.8 L Corrected Calcium 9.2 Phosphorus 2.2 L Magnesium 1.8 Total Bilirubin 0.7 AST 10 ALT < 7 L Alkaline Phosphatase 55 Total Protein 4.6 L Albumin 2.3 L Globulin 2.3 Albumin/Globulin Ratio 1.0 L Impressions Impression: pT2 N0 well-differentiated adenocarcinoma of the right colon Continue TPN outpatient follow-up with oncology Assessment & Plan A&P Narrative 1. Admitted with total obstruction of ascending colon, underwent resection of cecal cancer ileotransverse colostomy. 2. pT2N0 invasive adenocarcinoma well-differentiated surgical margins 40 lymph nodes negative. 3. Recovering satisfactorily now on TPN. 4. Informed patient about follow-up at the cancer treatment center, after receiving referral from primary MD. Time Spent With Patient Time: Total time spent is greater than 50% in coordination of care (as documented) at patient's floor/unit and/or counseling patient:
[2024-06-19] VITALS (7 sets, daily range): BP systolic 112–126; BP diastolic 66–76; PULSE 60–74; RESP 15–97; TEMP 36.2–37.4; O2SAT 97–100
[2024-06-19] MEDS: MORPHINE SULF INJ 10 MG/ML VIAL 4 MG IVP ×5 (03:23→20:11)
[2024-06-19 05:47] LABS: Basophils % (Auto) 0 % (0-2.5); Eosinophils # (Auto) 0.2 Thou/mm3 (0.0-0.5); Eosinophils % (Auto) 3 % (0-10); Hematocrit 28.4 % (41.0-53.0); Immature Granulocytes % (Auto) 0 % (0-0); Immature Granulocytes Auto 0.03 Thou/mm3 (0.00-0.00); Lymphocytes # (Auto) 0.6 Thou/mm3 (1.0-4.8); Lymphocytes % (Auto) 8 % (10-50); Mean Corpuscular HGB Conc 30.6 g/dl (31.0-37.0); Mean Corpuscular Hemoglobin 23.3 pg (25.0-35.0); Mean Corpuscular Volume 76 fL (80-100); Monocytes # (Auto) 0.3 Thou/mm3 (0.0-0.8); Monocytes % (Auto) 5 % (0-12); Neutrophils % (Auto) 84 % (37-80); Nucleated Red Blood Cell % 0 /100 WBC (0); Platelet Count 258 Thou/mm3 (140-440); Red Blood Count 3.74 Miln/mm3 (4.50-5.90); White Blood Count 7.2 Thou/mm3 (3.8-10.6)
[2024-06-19 05:49] LABS: Hemoglobin 8.7 g/dL (13.5-16.0)
[2024-06-19 06:26] LABS: Alanine Aminotransferase < 7 U/L (10-49); Albumin, Serum 2.3 gm/dL (3.4-4.8); Alkaline Phosphatase 55 U/L (46-116); Anion Gap 4 (7-16); Aspartate Amino Transferase 12 U/L (0-34); BUN/Creatinine Ratio 20 Ratio (12-20); Bilirubin,Total 0.5 mg/dL (0.3-1.2); Blood Urea Nitrogen 6 mg/dL (9-23); Calcium 7.9 mg/dL (8.3-10.6); Calcium (Corrected) 9.3 mg/dL (8.5-10.1); Carbon Dioxide 31.2 mMol/L (20.0-31.0); Chloride 105 mMol/L (98-107); Creatinine (Component) 0.3 mg/dL (0.6-1.3); Estimated Creatinine Clearance 190.8 mL/min (>60); Globulin 2.3 gm/dL (2.3-3.5); Glucose 119 mg/dL (74-106); Osmolality,Calculated 278 (275-295); Potassium 3.5 mMol/L (3.4-5.1); Sodium 140 mMol/L (136-145); Total Protein 4.6 gm/dL (5.7-8.2); eGFR > 60 See Note
[2024-06-19] MEDS: SODIUM CHLORIDE 0.9% 1000 ML 1,000 ML 50 ML IV (07:39)
[2024-06-19] MEDS: THIAMINE INJ 100 MG/ML VIAL 2 ML IV (08:27)
[2024-06-19] MEDS: ACETAMINOPHEN IVPB 1,000 MG/100 ML VIAL 250 MG IV ×2 (10:12→19:15)
--- NOTE | 2024-06-19 11:34 | PD.SURPROG ---
Documentation for date of: 06/19/24 Subjective Subjective Narrative: The patient is feeling better even though he is requiring morphine for pain control Exam Vital Signs Temp Pulse Resp BP Pulse Ox O2 Del Method O2 Flow Rate 97.1 F 67 18 112/76 97 Room Air 0 06/19/24 07:53 06/19/24 07:53 06/19/24 07:53 06/19/24 07:53 06/19/24 07:53 06/19/24 07:53 06/19/24 00:00 His vital signs are normal Routine Abdominal Exam Comments: Abdominal examination shows clear suture line with few bowel sounds heard Results Results: Laboratory Laboratory Narrative: Laboratory results are within normal limits Assessment & Plan Assessment Additional comments: Impression: Slow recovery from the right hemicolectomy Plan Plan: We shall continue to keep him home on TPN and feed him slowly Procedures Procedures Explored laparotomy and resection of the cecal cancer on ilio transverse colostomy
--- NOTE | 2024-06-19 13:56 | ESPR_ITS ---
Documentation for date of: 06/19/24 Subjective Subjective Interval history: Still requiring morphine for pain control On TPN Exam Vital Signs Temp Pulse Resp BP Pulse Ox O2 Del Method O2 Flow Rate 97.4 F 60 18 112/74 98 Room Air 0 06/19/24 11:58 06/19/24 11:58 06/19/24 11:58 06/19/24 11:58 06/19/24 11:58 06/19/24 11:58 06/19/24 00:00 Objective Labs 06/19/24 05:18 06/19/24 05:18 Labs: Laboratory Results - last 24 hr 06/19/24 05:18 WBC 7.2 RBC 3.74 L Hgb 8.7 L Hct 28.4 L MCV 76 L MCH 23.3 L MCHC 30.6 L RDW Std Deviation 66.0 H Plt Count 258 Neut % (Auto) 84 H Lymph % (Auto) 8 L [place] % (Auto) 5 Eos % (Auto) 3 Baso % (Auto) 0 Neut # (Auto) 6.0 Lymph # (Auto) 0.6 L [place] # (Auto) 0.3 Eos # (Auto) 0.2 Baso # (Auto) 0.0 Immature Gran # (Auto) 0.03 H Absolute Nucleated RBC 0.00 Immature Gran % 0 Nucleated RBC % 0 Sodium 140 Potassium 3.5 Chloride 105 Carbon Dioxide 31.2 H Anion Gap 4 L BUN 6 L Creatinine 0.3 L Estim Creat Clear Calc 190.8 eGFR > 60 BUN/Creatinine Ratio 20 Glucose 119 H Calculated Osmolality 278 Calcium 7.9 L Corrected Calcium 9.3 Total Bilirubin 0.5 AST 12 ALT < 7 L Alkaline Phosphatase 55 Total Protein 4.6 L Albumin 2.3 L Globulin 2.3 Albumin/Globulin Ratio 1.0 L Impressions Impression: # 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 Admitted with total obstruction of ascending colon, underwent resection of cecal cancer ileotransverse colostomy. 2. pT2N0 invasive adenocarcinoma well-differentiated surgical margins 40 lymph nodes negative. 3. Recovering satisfactorily now on TPN. 4. Informed patient about follow-up at the cancer treatment center, after receiving referral from primary MD. Time Spent With Patient Time: Total time spent is greater than 50% in coordination of care (as documented) at patient's floor/unit and/or counseling patient:
--- NOTE | 2024-06-19 14:06 | PD.RESPRO ---
Documentation for date of: 06/19/24 Subjective Subjective Interval history: Patient doing well. Pain is well-controlled with Tylenol and morphine. Had an episode of passing gas yesterday morning. Has been getting out of bed with physical therapy and walking around the unit daily. Electrolytes within normal limits. Patient is still getting TPN. Pathology came back yesterday that showed adenocarcinoma of the colon. Dr. Lares already updated patient on results and he will follow-up with him outpatient once discharged. Exam Vital Signs Temp Pulse Resp BP Pulse Ox O2 Del Method O2 Flow Rate 97.4 F 60 18 112/74 98 Room Air 0 06/19/24 11:58 06/19/24 11:58 06/19/24 11:58 06/19/24 11:58 06/19/24 11:58 06/19/24 11:58 06/19/24 00:00 Narrative Exam Constitutional: Cachectic, appears older than stated age Head: Normocephalic/Atraumatic Eyes: no conjunctival injection , symmetrical lids. ENMT: Moist Mucous Membranes CVS: Regular rate and rhythm RESP: no increased work of breathing, resting comfortably on room air GI: Soft, nondistended, mildly tender throughout, 10 cm well-healed surgical site with james across the mid abdomen Skin: Warm to touch, Dry. Neuro: Alert and oriented x 3, moves all limbs spontaneously Psych: Appropriate mood and affect. Objective Labs 06/20/24 04:30 06/20/24 04:30 Labs: Laboratory Results - last 24 hr 06/19/24 05:18 WBC 7.2 RBC 3.74 L Hgb 8.7 L Hct 28.4 L MCV 76 L MCH 23.3 L MCHC 30.6 L RDW Std Deviation 66.0 H Plt Count 258 Neut % (Auto) 84 H Lymph % (Auto) 8 L [place] % (Auto) 5 Eos % (Auto) 3 Baso % (Auto) 0 Neut # (Auto) 6.0 Lymph # (Auto) 0.6 L [place] # (Auto) 0.3 Eos # (Auto) 0.2 Baso # (Auto) 0.0 Immature Gran # (Auto) 0.03 H Absolute Nucleated RBC 0.00 Immature Gran % 0 Nucleated RBC % 0 Sodium 140 Potassium 3.5 Chloride 105 Carbon Dioxide 31.2 H Anion Gap 4 L BUN 6 L Creatinine 0.3 L Estim Creat Clear Calc 190.8 eGFR > 60 BUN/Creatinine Ratio 20 Glucose 119 H Calculated Osmolality 278 Calcium 7.9 L Corrected Calcium 9.3 Total Bilirubin 0.5 AST 12 ALT < 7 L Alkaline Phosphatase 55 Total Protein 4.6 L Albumin 2.3 L Globulin 2.3 Albumin/Globulin Ratio 1.0 L Quality Measures Quality Measures VTE prophylaxis Assessment & Plan Assessment Current Active Medications: Generic Name Dose Route Start Last Admin Trade Name Freq PRN Reason Stop Dose Admin Fat Emulsion Intravenous 500 mls @ 32 mls/hr 06/16/24 18:00 06/18/24 17:17 Intralipid 20% Iv IV 07/16/24 17:59 32 mls/hr MoWeFr SAMUEL Administration Sodium Chloride 1,000 mls @ 50 mls/hr 06/17/24 12:35 06/19/24 07:39 Ns IV 07/17/24 12:34 50 mls/hr .Q20H SAMUEL Administration Multivitamins/Minerals 10 ml/ 1,032 mls @ 40 mls/hr 06/18/24 18:00 06/18/24 17:17 Potassium Chloride 40 meq/ IV 06/19/24 17:59 40 mls/hr Magnesium Sulfate 1 gm/ Amino QDAY@1800 SAMUEL Administration Acids/Electrolytes Protocol Acetaminophen 1,000 mg in 100 mls @ 250 mls/hr 06/19/24 10:05 06/19/24 10:12 Ofirmev Inj IV 06/20/24 10:04 250 mls/hr Q6H PRN Administration PAIN Potassium Phosphate 15 mmol in 250 mls @ 62.5 mls/hr 06/19/24 13:00 Pot Phos 15 Mmol In Ns 250 Ml IV 06/19/24 16:59 X1 ONE Multivitamins/Minerals 10 ml/ 1,019 mls @ 40 mls/hr 06/19/24 18:00 Potassium Chloride 10 meq/ IV 06/20/24 17:59 Magnesium Sulfate 2 gm/ Amino QDAY@1800 [facility] Acids/Electrolytes Protocol Morphine Sulfate 4 mg 06/15/24 19:16 06/19/24 11:52 Morphine Sulf Inj 10 Mg/Ml Vial IVP 06/20/24 19:15 4 mg Q4HR PRN Administration PAIN Ondansetron HCl 4 mg 06/15/24 19:16 Ondansetron Inj 2 Mg/Ml Inj 2 Ml IV 07/15/24 19:15 Q4HR PRN NAUSEA OR VOMITING Thiamine HCl 100 mg 06/17/24 10:15 06/19/24 08:27 Thiamine Inj 100 Mg/Ml Vial 2 Ml IV 06/23/24 10:14 100 mg QDAY SAMUEL Administration Plan Mr. Solares is a 63-year-old male with past medical history of cervical spine injury who presented to [facility] emergency department on 06/13/2024 with a chief complaint of abdominal pain. History of recent admission where he was diagnosed with colonic mass at that time. Unable to receive colonoscopy or ex lap as patient AMA at that time. Patient admitted for possible ex lap and further workup for colon mass. #Colonic mass, suspicion for malignancy #Microcytic hypochromic anemia #Lymphadenopathy #Osteolytic lesions #Weight loss ?Extensive imaging on last admission showed a total obstruction of the ascending colon by a large tumor mass and general surgeon stated that patient will need an ex lap at this time, but patient had to leave AGAINST MEDICAL ADVICE to take care of some personal legal matters. -Patient's FOBT was positive on previous admission, no active GI bleed noted.CEA 3.4 -Chest/abdomen/pelvis CTA (06/09/24) showed a large tumor mass in cecum and ascending colon with adjacent lymphadenopathy as well as fluid adjacent to mass suspicious for perforation versus peritoneal carcinomatosis. -X-ray barium enema showed obstruction of the ascending colon by tumor mass -Nuclear medicine bone scan shows Positive bone scan but nonspecific, the foci of increased uptake in the left sixth and seventh ribs appear to be old fractures on the CT chest study ?Exploratory laparotomy on 06/15 with resection of the cecal cancer/ right hemicolectomy with anastomosis. Did not visualize any metastatic disease in the liver or peritoneal cavity. -Pathology from surgery shows adenocarcinoma without spread to the lymph nodes. Patient has been updated on diagnosis and will follow-up Dr. Lares outpatient once discharged. Plan: -Consulted GI, general surge, oncology -Receiving TPN, being overseen by dietitian -N.p.o. will proceed slowly with feedings until full return of bowel function. Watching for refeeding syndrome. Repleting electrolytes as needed. -PT/OT orders placed -Tylenol, hydrocodone and morphine for pain PRN # Urinary tract infection- asymptomatic bacteria on UA Urine significant for urine protein 1+, ketones 1+, bilirubin 1+, WBC 39, bacteria rare s/p Ceftriaxone 1 g x 1 # Electrolyte imbalance # Hypokalemia -Correct and replace electrolytes as needed DVT prophylaxis: Heparin every 12 hours GI prophylaxis: Not indicated. Diet: NPO Lines: Peripheral IV Code status: Full code Case discussed with Attending Dr. Jones, Andrew Anderson, PGY1 Attending Provider Attestation/Addendum INajma, , attest that I was physically present for the vera portions of the service and evaluated the patient with the resident and I reviewed and discussed the case with the resident and agree with the resident's findings and plans of care as documented above Pt seen and evaluated this AM. He states that he is doing well and IV tylenol has been really helping with his pain. Patient has been ambulating without issue in hallway. He remains on TPN. Electrolytes within normal limits. Continue with current management as per surgeon recs
[2024-06-19] MEDS: POT PHOS 15 mMol in NS 250 ML 15 MMOL/250 ML BAG 62.5 MMOL IV (14:31)
--- NOTE | 2024-06-19 16:44 | PC.NURSE ---
Patient walked around the nurse's station 4 times. Tolerated well
[2024-06-19] MEDS: [UNRECOGNIZED DRUG - OTHER] IV (17:22)
[2024-06-19] MEDS: POT CHL ADDITIVE IV (17:22)
[2024-06-19] MEDS: MULTIVITAMIN IV (17:22)
[2024-06-19] MEDS: MAGNESIUM SULF IV (17:22)
[2024-06-20] VITALS (7 sets, daily range): BP systolic 109–124; BP diastolic 66–73; PULSE 55–79; RESP 15–98; TEMP 36.1–36.6; O2SAT 95–99
[2024-06-20] MEDS: ACETAMINOPHEN IVPB 1,000 MG/100 ML VIAL 250 MG IV ×3 (01:51→20:07)
[2024-06-20] MEDS: SODIUM CHLORIDE 0.9% 1000 ML 1,000 ML 50 ML IV (04:16)
[2024-06-20] MEDS: MORPHINE SULF INJ 10 MG/ML VIAL 4 MG IVP ×3 (04:18→20:06)
[2024-06-20 05:39] LABS: Basophils % (Auto) 0 % (0-2.5); Eosinophils # (Auto) 0.2 Thou/mm3 (0.0-0.5); Eosinophils % (Auto) 4 % (0-10); Hematocrit 28.6 % (41.0-53.0); Immature Granulocytes % (Auto) 0 % (0-0); Immature Granulocytes Auto 0.01 Thou/mm3 (0.00-0.00); Lymphocytes # (Auto) 0.6 Thou/mm3 (1.0-4.8); Lymphocytes % (Auto) 12 % (10-50); Mean Corpuscular HGB Conc 30.4 g/dl (31.0-37.0); Mean Corpuscular Hemoglobin 23.1 pg (25.0-35.0); Mean Corpuscular Volume 76 fL (80-100); Monocytes # (Auto) 0.3 Thou/mm3 (0.0-0.8); Monocytes % (Auto) 6 % (0-12); Neutrophils # (Auto) 3.8 Thou/mm3 (1.8-7.7); Neutrophils % (Auto) 78 % (37-80); Nucleated Red Blood Cell % 0 /100 WBC (0); Platelet Count 340 Thou/mm3 (140-440); RDW Standard Deviation 68.5 fL (35.1-43.9); Red Blood Count 3.76 Miln/mm3 (4.50-5.90); White Blood Count 4.9 Thou/mm3 (3.8-10.6)
[2024-06-20 05:44] LABS: Hemoglobin 8.7 g/dL (13.5-16.0)
[2024-06-20 06:30] LABS: Alanine Aminotransferase < 7 U/L (10-49); Albumin, Serum 2.4 gm/dL (3.4-4.8); Alkaline Phosphatase 60 U/L (46-116); Anion Gap 5 (7-16); Aspartate Amino Transferase 14 U/L (0-34); BUN/Creatinine Ratio 27 Ratio (12-20); Bilirubin,Total 0.7 mg/dL (0.3-1.2); Blood Urea Nitrogen 8 mg/dL (9-23); Calcium 8.2 mg/dL (8.3-10.6); Calcium (Corrected) 9.5 mg/dL (8.5-10.1); Carbon Dioxide 31.3 mMol/L (20.0-31.0); Chloride 107 mMol/L (98-107); Creatinine (Component) 0.3 mg/dL (0.6-1.3); Estimated Creatinine Clearance 190.8 mL/min (>60); Globulin 2.3 gm/dL (2.3-3.5); Glucose 109 mg/dL (74-106); Osmolality,Calculated 284 (275-295); Phosphorous 3.3 mg/dL (2.4-5.1); Potassium 3.5 mMol/L (3.4-5.1); Sodium 143 mMol/L (136-145); Total Protein 4.7 gm/dL (5.7-8.2); Triglycerides 75 mg/dL (30-150); eGFR > 60 See Note
[2024-06-20] MEDS: THIAMINE INJ 100 MG/ML VIAL 2 ML IV (08:18)
--- NOTE | 2024-06-20 10:03 | ESPR_ITS ---
Documentation for date of: 06/20/24 Subjective Subjective Interval history: Patient seen at bedside. No acute events or complaints overnight. Ambulating, passing gas and tolerating ice chips. Patient demonstrated using his incentive spirometer well. Patient trying not to take morphine. Exam Vital Signs Temp Pulse Resp BP Pulse Ox O2 Del Method O2 Flow Rate 97.7 F 55 L 17 113/68 98 Room Air 0 06/20/24 08:00 06/20/24 08:00 06/20/24 08:00 06/20/24 08:00 06/20/24 08:00 06/20/24 08:00 06/20/24 04:00 Narrative Exam Constitutional: NAD. Sitting upright in bed. HEENT: NCAT. Vision grossly intact. Mucous membranes moist. Respiratory: CTAB bilaterally. Cardiac: RRR. Abdomen: Soft, non-distended, non-tender. Surgical site clean, dry, intact. MSK: No B/L LE edema. Skin: Warm, dry, intact. No obvious lesions. Neuro: Motor and sensation grossly intact. Psychiatric: Appropriate mood and affect. Objective Labs 06/21/24 05:10 06/21/24 05:10 Labs: Laboratory Results - last 24 hr 06/20/24 04:30 WBC 4.9 RBC 3.76 L Hgb 8.7 L Hct 28.6 L MCV 76 L MCH 23.1 L MCHC 30.4 L RDW Std Deviation 68.5 H Plt Count 340 D Neut % (Auto) 78 Lymph % (Auto) 12 [place] % (Auto) 6 Eos % (Auto) 4 Baso % (Auto) 0 Neut # (Auto) 3.8 Lymph # (Auto) 0.6 L [place] # (Auto) 0.3 Eos # (Auto) 0.2 Baso # (Auto) 0.0 Immature Gran # (Auto) 0.01 H Absolute Nucleated RBC 0.00 Immature Gran % 0 Nucleated RBC % 0 Sodium 143 Potassium 3.5 Chloride 107 Carbon Dioxide 31.3 H Anion Gap 5 L BUN 8 L Creatinine 0.3 L Estim Creat Clear Calc 190.8 eGFR > 60 BUN/Creatinine Ratio 27 H Glucose 109 H Calculated Osmolality 284 Calcium 8.2 L Corrected Calcium 9.5 Phosphorus 3.3 Total Bilirubin 0.7 AST 14 ALT < 7 L Alkaline Phosphatase 60 Total Protein 4.7 L Albumin 2.4 L Globulin 2.3 Albumin/Globulin Ratio 1.0 L Triglycerides 75 Quality Measures Quality Measures VTE prophylaxis Assessment & Plan Assessment Current Active Medications: Generic Name Dose Route Start Last Admin Trade Name Freq PRN Reason Stop Dose Admin Fat Emulsion Intravenous 500 mls @ 32 mls/hr 06/16/24 18:00 06/18/24 17:17 Intralipid 20% Iv IV 07/16/24 17:59 32 mls/hr MoWeFr SAMUEL Administration Sodium Chloride 1,000 mls @ 50 mls/hr 06/17/24 12:35 06/20/24 04:16 Ns IV 07/17/24 12:34 50 mls/hr .Q20H SAMUEL Administration Multivitamins/Minerals 10 ml/ 1,019 mls @ 40 mls/hr 06/19/24 18:00 06/19/24 17:22 Potassium Chloride 10 meq/ IV 06/20/24 17:59 40 mls/hr Magnesium Sulfate 2 gm/ Amino QDAY@1800 SAMUEL Administration Acids/Electrolytes Protocol Multivitamins/Minerals 10 ml/ 2,038 mls @ 40 mls/hr 06/20/24 18:00 Potassium Chloride 40 meq/ IV 06/21/24 17:59 Magnesium Sulfate 4 gm/ Amino QDAY@1800 SAUMEL Acids/Electrolytes Protocol Morphine Sulfate 4 mg 06/15/24 19:16 06/20/24 04:18 Morphine Sulf Inj 10 Mg/Ml Vial IVP 06/20/24 19:15 4 mg Q4HR PRN Administration PAIN Ondansetron HCl 4 mg 06/15/24 19:16 Ondansetron Inj 2 Mg/Ml Inj 2 Ml IV 07/15/24 19:15 Q4HR PRN NAUSEA OR VOMITING Thiamine HCl 100 mg 06/17/24 10:15 06/20/24 08:18 Thiamine Inj 100 Mg/Ml Vial 2 Ml IV 06/23/24 10:14 100 mg QDAY SAMUEL Administration Plan Mr. Solares is a 63-year-old male with past medical history of cervical spine injury who presented to [facility] emergency department on 06/13/2024 with a chief complaint of abdominal pain. History of recent admission where he was diagnosed with colonic mass at that time. Unable to receive colonoscopy or ex lap as patient AMA at that time. Patient admitted for possible ex lap and further workup for colon mass. #Colon adenocarcinoma #Microcytic hypochromic anemia Extensive imaging on last admission showed a total obstruction of the ascending colon by a large tumor mass and general surgeon stated that patient will need an ex lap at this time, but patient had to leave to address personal matters, then returned for evaluation. Chest/abdomen/pelvis CTA (06/09/24) showed a large tumor mass in cecum and ascending colon with adjacent lymphadenopathy as well as fluid adjacent to mass suspicious for perforation versus peritoneal carcinomatosis. X-ray barium enema showed obstruction of the ascending colon by tumor mass Nuclear medicine bone scan shows Positive bone scan but nonspecific, the foci of increased uptake in the left sixth and seventh ribs appear to be old fractures on the CT chest study Exploratory laparotomy on 06/15 with resection of the cecal cancer/ right hemicolectomy with anastomosis. Did not visualize any metastatic disease in the liver or peritoneal cavity. Pathology from surgery shows adenocarcinoma without spread to the lymph nodes. Patient has been updated on diagnosis and will follow-up Dr. Lares outpatient once discharged. Plan: - GI, general surgey, oncology following -Receiving TPN, being overseen by dietitian -N.p.o. will proceed slowly with feedings until full return of bowel function. Watching for refeeding syndrome. Repleting electrolytes as needed. -Tylenol, morphine for pain PRN. #Asymptomatic bacteruria #Electrolyte imbalances, resolved Health Maintenance Dispo: on TPN, pending general surgery recommendations on advancing diet DVT prophylaxis: Heparin every 12 hours GI prophylaxis: Not indicated. Diet: NPO Lines: Peripheral IV Code status: Full code I have reviewed and discussed the patient's care with my attending, Dr. Karen Barrientos MD PGY-3 Attending Provider Attestation/Addendum Najma Whitman DO, attest that I was physically present for the vera portions of the service and evaluated the patient with the resident and I reviewed and discussed the case with the resident and agree with the resident's findings and plans of care as documented above Patient seen and evaluated this AM. No acute events overnight. Patient states that he was able to sleep well and able to space out his IV morphine. He states that norco makes him nauseous. Will hold off until he starts PO intake. Plan to switch IV pain medicines to PO in AM. patient has not had a BM, but endorses flatus. Patient remains afebrile. Case discussed with surgeon, OK to start Po pain medications. TPN rate increased
--- NOTE | 2024-06-20 10:26 | PD.SURPROG ---
Documentation for date of: 06/20/24 Subjective Subjective Narrative: The patient is feeling better and has not used morphine for pain. He is passing small amount of gas but nothing significant. For the first time he says he could try some food p.o. Exam Vital Signs Temp Pulse Resp BP Pulse Ox O2 Del Method O2 Flow Rate 97.7 F 55 L 17 113/68 98 Room Air 0 06/20/24 08:00 06/20/24 08:00 06/20/24 08:00 06/20/24 08:00 06/20/24 08:00 06/20/24 08:00 06/20/24 04:00 His vital signs are normal Routine Abdominal Exam Comments: Abdominal examination is essentially unchanged. Bowel sounds are heard but diminished Results Results: Laboratory Laboratory Narrative: Laboratory workup showed reasonable values except magnesium which is 1.9 last time we checked. His WBC is normal and he is little anemic because of the hemodilution Assessment & Plan Assessment Additional comments: Impression: Refeeding syndrome being corrected Plan Plan: We will correct the magnesium which is low by additional IV or into the TPN. I would increase the rate of TPN to 60 cc/h and reduce the peripheral IV to 36/h. We will still wait for feeding at least another day Procedures Procedures Explored laparotomy and resection of the cecal cancer on ilio transverse colostomy
[2024-06-20 10:48] LABS: Magnesium 2.1 mg/dL (1.6-2.6)
--- NOTE | 2024-06-20 14:14 | PD.IMPROG ---
Documentation for date of: 06/20/24 Subjective Subjective Interval history: Patient evaluated on TPN No bowel movement but passing flatus Exam Vital Signs Temp Pulse Resp BP Pulse Ox O2 Del Method O2 Flow Rate 97 F 79 16 112/66 97 Room Air 0 06/20/24 12:00 06/20/24 12:00 06/20/24 12:00 06/20/24 12:00 06/20/24 12:00 06/20/24 12:00 06/20/24 04:00 Objective Labs 06/20/24 04:30 06/20/24 04:30 Labs: Laboratory Results - last 24 hr 06/20/24 04:30 WBC 4.9 RBC 3.76 L Hgb 8.7 L Hct 28.6 L MCV 76 L MCH 23.1 L MCHC 30.4 L RDW Std Deviation 68.5 H Plt Count 340 D Neut % (Auto) 78 Lymph % (Auto) 12 [place] % (Auto) 6 Eos % (Auto) 4 Baso % (Auto) 0 Neut # (Auto) 3.8 Lymph # (Auto) 0.6 L [place] # (Auto) 0.3 Eos # (Auto) 0.2 Baso # (Auto) 0.0 Immature Gran # (Auto) 0.01 H Absolute Nucleated RBC 0.00 Immature Gran % 0 Nucleated RBC % 0 Sodium 143 Potassium 3.5 Chloride 107 Carbon Dioxide 31.3 H Anion Gap 5 L BUN 8 L Creatinine 0.3 L Estim Creat Clear Calc 190.8 eGFR > 60 BUN/Creatinine Ratio 27 H Glucose 109 H Calculated Osmolality 284 Calcium 8.2 L Corrected Calcium 9.5 Phosphorus 3.3 Magnesium 2.1 Total Bilirubin 0.7 AST 14 ALT < 7 L Alkaline Phosphatase 60 Total Protein 4.7 L Albumin 2.4 L Globulin 2.3 Albumin/Globulin Ratio 1.0 L Triglycerides 75 Impressions Impression: #Cecal ascending colon carcinoma status post resection final staging was pT2 N0 Continue current management Assessment & Plan A&P Narrative 1. Admitted with total obstruction of ascending colon, underwent resection of cecal cancer ileotransverse colostomy. 2. pT2N0 invasive adenocarcinoma well-differentiated surgical margins 40 lymph nodes negative. 3. Recovering satisfactorily now on TPN. 4. Informed patient about follow-up at the cancer treatment center, after receiving referral from primary MD. Time Spent With Patient Time: Total time spent is greater than 50% in coordination of care (as documented) at patient's floor/unit and/or counseling patient:
[2024-06-20] MEDS: MULTIVITAMIN IV (17:09)
[2024-06-20] MEDS: [UNRECOGNIZED DRUG - OTHER] IV (17:09)
[2024-06-20] MEDS: POT CHL ADDITIVE IV (17:09)
[2024-06-20] MEDS: MAGNESIUM SULF IV (17:09)
[2024-06-21] VITALS: BP 110/64; PULSE 53; RESP 15; TEMP 36.1; O2SAT 98
[2024-06-21 04:00] VITALS: BP 118/64; PULSE 58; RESP 15; TEMP 36.5; O2SAT 99
[2024-06-21 06:07] LABS: Basophils % (Auto) 0 % (0-2.5); Eosinophils # (Auto) 0.2 Thou/mm3 (0.0-0.5); Eosinophils % (Auto) 3 % (0-10); Hematocrit 27.5 % (41.0-53.0); Immature Granulocytes % (Auto) 0 % (0-0); Immature Granulocytes Auto 0.02 Thou/mm3 (0.00-0.00); Lymphocytes # (Auto) 0.6 Thou/mm3 (1.0-4.8); Lymphocytes % (Auto) 10 % (10-50); Mean Corpuscular HGB Conc 30.5 g/dl (31.0-37.0); Mean Corpuscular Hemoglobin 23.2 pg (25.0-35.0); Mean Corpuscular Volume 76 fL (80-100); Monocytes # (Auto) 0.3 Thou/mm3 (0.0-0.8); Monocytes % (Auto) 5 % (0-12); Neutrophils # (Auto) 5.2 Thou/mm3 (1.8-7.7); Neutrophils % (Auto) 82 % (37-80); Nucleated Red Blood Cell % 0 /100 WBC (0); Platelet Count 313 Thou/mm3 (140-440); RDW Standard Deviation 67.6 fL (35.1-43.9); Red Blood Count 3.62 Miln/mm3 (4.50-5.90); White Blood Count 6.3 Thou/mm3 (3.8-10.6)
[2024-06-21 06:12] LABS: Hemoglobin 8.4 g/dL (13.5-16.0)
[2024-06-21] MEDS: MORPHINE SULF INJ 10 MG/ML VIAL 4 MG IVP ×2 (07:42→19:51)
[2024-06-21 07:55] LABS: Alanine Aminotransferase 12 U/L (10-49); Albumin, Serum 2.3 gm/dL (3.4-4.8); Alkaline Phosphatase 64 U/L (46-116); Anion Gap 4 (7-16); Aspartate Amino Transferase 22 U/L (0-34); BUN/Creatinine Ratio 43 Ratio (12-20); Bilirubin,Total 0.7 mg/dL (0.3-1.2); Blood Urea Nitrogen 13 mg/dL (9-23); Calcium 8.1 mg/dL (8.3-10.6); Calcium (Corrected) 9.5 mg/dL (8.5-10.1); Carbon Dioxide 31.1 mMol/L (20.0-31.0); Chloride 108 mMol/L (98-107); Creatinine (Component) 0.3 mg/dL (0.6-1.3); Estimated Creatinine Clearance 190.8 mL/min (>60); Globulin 2.4 gm/dL (2.3-3.5); Glucose 114 mg/dL (74-106); Magnesium 2.5 mg/dL (1.6-2.6); Osmolality,Calculated 286 (275-295); Phosphorous 2.9 mg/dL (2.4-5.1); Potassium 3.5 mMol/L (3.4-5.1); Sodium 143 mMol/L (136-145); Total Protein 4.7 gm/dL (5.7-8.2); eGFR > 60 See Note
[2024-06-21 08:00] VITALS: BP 92/66; PULSE 85; RESP 17; TEMP 36.2; O2SAT 99
--- NOTE | 2024-06-21 09:37 | PC.PT ---
PT had care conference with [facility]. Patient is xI and will be D/C from PT services.
[2024-06-21] MEDS: THIAMINE INJ 100 MG/ML VIAL 2 ML IV (10:21)
[2024-06-21 11:26] VITALS: BMI 17.2
[2024-06-21] MEDS: ACETAMINOPHEN 325 MG TABLET 650 MG PO (11:35)
[2024-06-21 12:00] VITALS: BP 90/63; PULSE 107; RESP 18; TEMP 36.4; O2SAT 100
[2024-06-21] MEDS: ACETAMINOPHEN IVPB 1,000 MG/100 ML VIAL 250 MG IV ×2 (13:01→18:00)
--- NOTE | 2024-06-21 14:43 | ESPR_ITS ---
<Statement entered by Kandy Barrientos MD - 06/21/24 14:53> I discussed with and supervised my co-resident involved in the care of this patient. I agree with the assessment and plan as documented above. Patient seen at bedside, sitting upright in chair. He had a formed bowel movement. He is ambulating around the inpatient floor and in his room. Attempted PO Tyelonel for pain however patient felt nauseous and threw up, so was given IV Tylenol. General surgery advanced diet to CLD and will eventually transition him off TPN. Kandy Barrientos MD PGY-3 Documentation for date of: 06/21/24 Subjective Subjective Interval history: Patient seen at bedside. No acute events overnight. Complains of LLQ stabbing pain that last for a few seconds. Attributes to gas. Patient is ambulating, passing gas, and had 2 bowel movements this morning. No blood, semiformed. Tolerating ice chips. Will start patient on clear liquids. Not able to tolerate p.o. Tylenol. Therefore on IV Tylenol for pain. Exam Vital Signs Temp Pulse Resp BP Pulse Ox O2 Del Method O2 Flow Rate 97.5 F 107 H 18 90/63 100 Room Air 0 06/21/24 12:00 06/21/24 12:00 06/21/24 12:00 06/21/24 12:00 06/21/24 12:00 06/21/24 12:00 06/21/24 12:00 Narrative Exam Constitutional: NAD. Sitting upright in bed. Cachectic HEENT: NCAT. Vision grossly intact. Mucous membranes dry. Respiratory: CTAB bilaterally. Cardiac: RRR. Abdomen: Soft, non-distended, non-tender. Surgical site clean, dry, intact. MSK: No B/L LE edema. Skin: Warm, dry, intact. No obvious lesions. Neuro: Motor and sensation grossly intact. Psychiatric: Appropriate mood and affect. Objective Labs 06/21/24 05:10 06/21/24 05:10 Labs: Laboratory Results - last 24 hr 06/13/24 06/21/24 15:12 05:10 WBC 6.3 RBC 3.62 L Hgb 8.4 L Hct 27.5 L MCV 76 L MCH 23.2 L MCHC 30.5 L RDW Std Deviation 67.6 H Plt Count 313 Neut % (Auto) 82 H Lymph % (Auto) 10 [place] % (Auto) 5 Eos % (Auto) 3 Baso % (Auto) 0 Neut # (Auto) 5.2 Lymph # (Auto) 0.6 L [place] # (Auto) 0.3 Eos # (Auto) 0.2 Baso # (Auto) 0.0 Immature Gran # (Auto) 0.02 H Absolute Nucleated RBC 0.00 Immature Gran % 0 Nucleated RBC % 0 Sodium 143 Potassium 3.5 Chloride 108 H Carbon Dioxide 31.1 H Anion Gap 4 L BUN 13 Creatinine 0.3 L Estim Creat Clear Calc 190.8 eGFR > 60 BUN/Creatinine Ratio 43 H Glucose 114 H Calculated Osmolality 286 Calcium 8.1 L Corrected Calcium 9.5 Phosphorus 2.9 Magnesium 2.5 Total Bilirubin 0.7 AST 22 ALT 12 Alkaline Phosphatase 64 Total Protein 4.7 L Albumin 2.3 L Globulin 2.4 Albumin/Globulin Ratio 1.0 L Crossmatch See Detail Quality Measures Quality Measures VTE prophylaxis Assessment & Plan Assessment Current Active Medications: Generic Name Dose Route Start Last Admin Trade Name Freq PRN Reason Stop Dose Admin Acetaminophen 650 mg 06/21/24 09:34 06/21/24 11:35 Acetaminophen 325 Mg Tablet PO 07/21/24 09:33 650 mg Q6HR PRN Administration pain 1-3 or fever > 100.4 Hydrocodone Bitart/Acetaminophen 1 tab 06/20/24 21:02 Hydrocodone/Apap 5/325 Tablet PO 06/25/24 21:01 Q4HR PRN PAIN SCALE 4-6 (Moderate Fat Emulsion Intravenous 500 mls @ 32 mls/hr 06/16/24 18:00 06/18/24 17:17 Intralipid 20% Iv IV 07/16/24 17:59 32 mls/hr MoWeFr SAMUEL Administration Multivitamins/Minerals 10 ml/ 2,038 mls @ 80 mls/hr 06/21/24 10:30 06/21/24 10:30 Potassium Chloride 40 meq/ IV 06/21/24 17:59 Not Given Magnesium Sulfate 4 gm/ Amino QDAY@1800 [facility] Acids/Electrolytes Protocol Potassium Chloride 20 meq/ 2,020 mls @ 80 mls/hr 06/21/24 18:00 Multivitamins/Minerals 10 ml/ IV 06/22/24 17:59 Amino Acids/Electrolytes .Q24H SAMUEL Acetaminophen 1,000 mg in 100 mls @ 250 mls/hr 06/21/24 11:50 06/21/24 13:01 Ofirmev Inj IV 06/22/24 06:13 250 mls/hr Q6H SAMUEL Administration Morphine Sulfate 4 mg 06/20/24 17:36 06/21/24 07:42 Morphine Sulf Inj 10 Mg/Ml Vial IVP 06/22/24 17:35 4 mg Q6HR PRN Administration Breakthrough Pain Ondansetron HCl 4 mg 06/15/24 19:16 Ondansetron Inj 2 Mg/Ml Inj 2 Ml IV 07/15/24 19:15 Q4HR PRN NAUSEA OR VOMITING Thiamine HCl 100 mg 06/17/24 10:15 06/21/24 10:21 Thiamine Inj 100 Mg/Ml Vial 2 Ml IV 06/23/24 10:14 100 mg QDAY SAMUEL Administration Plan Mr. Solares is a 63-year-old male with past medical history of cervical spine injury who presented to [facility] ([facility] emergency department on 06/13/2024 with a chief complaint of abdominal pain. History of recent admission where he was diagnosed with colonic mass at that time. Unable to receive colonoscopy or ex lap as patient AMA at that time. Patient admitted for possible ex lap and further workup for colon mass. #Colon adenocarcinoma #Microcytic hypochromic anemia Extensive imaging on last admission showed a total obstruction of the ascending colon by a large tumor mass and general surgeon stated that patient will need an ex lap at this time, but patient had to leave to address personal matters, then returned for evaluation. Chest/abdomen/pelvis CTA (06/09/24) showed a large tumor mass in cecum and ascending colon with adjacent lymphadenopathy as well as fluid adjacent to mass suspicious for perforation versus peritoneal carcinomatosis. X-ray barium enema showed obstruction of the ascending colon by tumor mass Nuclear medicine bone scan shows Positive bone scan but nonspecific, the foci of increased uptake in the left sixth and seventh ribs appear to be old fractures on the CT chest study Exploratory laparotomy on 06/15 with resection of the cecal cancer/ right hemicolectomy with anastomosis. Did not visualize any metastatic disease in the liver or peritoneal cavity. Pathology from surgery shows adenocarcinoma without spread to the lymph nodes. Patient has been updated on diagnosis and will follow-up Dr. Lares outpatient once discharged. Plan: - GI, general surgey, oncology following -Receiving TPN, being overseen by dietitian -start clear liquid diet today. Watching for refeeding syndrome. Repleting electrolytes as needed. -IV Tylenol or pain PRN for now. Not tolerating p.o. medication #Asymptomatic bacteruria #Electrolyte imbalances, resolved Health Maintenance Dispo: on TPN, pending general surgery recommendations on advancing diet DVT prophylaxis: Heparin every 12 hours GI prophylaxis: Not indicated. Diet: Clear liquids Lines: Peripheral IV Code status: Full code I have reviewed and discussed the patient's care with my attending, Dr. Jones and senior Dr. Barrientos. Maureen Merino, PGY1 Attending Provider Attestation/Addendum I, Najma Jones, DO, attest that I was physically present for the vera portions of the service and evaluated the patient with the resident and I reviewed and discussed the case with the resident and agree with the resident's findings and plans of care as documented above Patient seen and evaluated this AM. He states he is feeling well and had a BM this morning. Advanced to CLD by surgeon. Will switch IV tylenol to PO tylenol. Patient states he is willing to try norco. No acute events overnight. Continue with current management otherwise.
[2024-06-21 16:00] VITALS: BP 107/66; PULSE 77; RESP 18; TEMP 36.2; O2SAT 100
[2024-06-21 18:04] LABS: Path Review Blood Smear Sent to Pathologist
[2024-06-21] MEDS: [UNRECOGNIZED DRUG - OTHER] IV (18:37)
[2024-06-21] MEDS: MULTIVITAMIN IV (18:37)
[2024-06-21] MEDS: AMINO ACID IV (18:37)
[2024-06-21] MEDS: FAT EMULSIONS 20% IV 500 ML 32 ML IV (18:37)
[2024-06-21] MEDS: POT CHL ADDITIVE IV (18:37)
[2024-06-21 20:00] VITALS: BP 102/69; PULSE 70; RESP 18; TEMP 36.3; O2SAT 100
--- NOTE | 2024-06-21 20:19 | PD.IMPROG ---
Documentation for date of: 06/21/24 Subjective Subjective Interval history: Patient evaluated hemoglobin hematocrit 8.4 and 27.5 Patient had 2 bowel movements Passing flatus Exam Vital Signs Temp Pulse Resp BP Pulse Ox O2 Del Method O2 Flow Rate 97.2 F 77 18 107/66 100 Room Air 0 06/21/24 16:00 06/21/24 16:00 06/21/24 16:00 06/21/24 16:00 06/21/24 16:00 06/21/24 16:00 06/21/24 12:00 Objective Labs 06/21/24 05:10 06/21/24 05:10 Labs: Laboratory Results - last 24 hr 06/13/24 06/21/24 15:12 05:10 WBC 6.3 RBC 3.62 L Hgb 8.4 L Hct 27.5 L MCV 76 L MCH 23.2 L MCHC 30.5 L RDW Std Deviation 67.6 H Plt Count 313 Neut % (Auto) 82 H Lymph % (Auto) 10 [place] % (Auto) 5 Eos % (Auto) 3 Baso % (Auto) 0 Neut # (Auto) 5.2 Lymph # (Auto) 0.6 L [place] # (Auto) 0.3 Eos # (Auto) 0.2 Baso # (Auto) 0.0 Immature Gran # (Auto) 0.02 H Absolute Nucleated RBC 0.00 Immature Gran % 0 Nucleated RBC % 0 Smear Path Review Sent to Pathologist Sodium 143 Potassium 3.5 Chloride 108 H Carbon Dioxide 31.1 H Anion Gap 4 L BUN 13 Creatinine 0.3 L Estim Creat Clear Calc 190.8 eGFR > 60 BUN/Creatinine Ratio 43 H Glucose 114 H Calculated Osmolality 286 Calcium 8.1 L Corrected Calcium 9.5 Phosphorus 2.9 Magnesium 2.5 Total Bilirubin 0.7 AST 22 ALT 12 Alkaline Phosphatase 64 Total Protein 4.7 L Albumin 2.3 L Globulin 2.4 Albumin/Globulin Ratio 1.0 L Crossmatch See Detail Impressions Impression: # Status post exploratory laparotomy with right hemicolectomy Advance to clear liquid diet Assessment & Plan A&P Narrative 1. Admitted with total obstruction of ascending colon, underwent resection of cecal cancer ileotransverse colostomy. 2. pT2N0 invasive adenocarcinoma well-differentiated surgical margins 40 lymph nodes negative. 3. Recovering satisfactorily now on TPN. 4. Informed patient about follow-up at the cancer treatment center, after receiving referral from primary MD. Time Spent With Patient Time: Total time spent is greater than 50% in coordination of care (as documented) at patient's floor/unit and/or counseling patient:
[2024-06-22] VITALS: BP 109/59; PULSE 67; RESP 18; TEMP 36.7; O2SAT 99
[2024-06-22] MEDS: ACETAMINOPHEN IVPB 1,000 MG/100 ML VIAL 250 MG IV (00:03)
[2024-06-22 04:00] VITALS: BP 111/69; PULSE 63; RESP 20; TEMP 36.7; O2SAT 100
[2024-06-22 05:25] LABS: Basophils % (Auto) 0 % (0-2.5); Eosinophils # (Auto) 0.2 Thou/mm3 (0.0-0.5); Eosinophils % (Auto) 3 % (0-10); Hematocrit 25.7 % (41.0-53.0); Immature Granulocytes % (Auto) 0 % (0-0); Immature Granulocytes Auto 0.03 Thou/mm3 (0.00-0.00); Lymphocytes # (Auto) 0.7 Thou/mm3 (1.0-4.8); Lymphocytes % (Auto) 9 % (10-50); Mean Corpuscular HGB Conc 30.7 g/dl (31.0-37.0); Mean Corpuscular Hemoglobin 23.7 pg (25.0-35.0); Mean Corpuscular Volume 77 fL (80-100); Monocytes # (Auto) 0.4 Thou/mm3 (0.0-0.8); Monocytes % (Auto) 6 % (0-12); Neutrophils # (Auto) 6.1 Thou/mm3 (1.8-7.7); Neutrophils % (Auto) 81 % (37-80); Nucleated Red Blood Cell % 0 /100 WBC (0); Platelet Count 279 Thou/mm3 (140-440); RDW Standard Deviation 68.9 fL (35.1-43.9); Red Blood Count 3.34 Miln/mm3 (4.50-5.90); White Blood Count 7.5 Thou/mm3 (3.8-10.6)
[2024-06-22 05:27] LABS: Hemoglobin 7.9 g/dL (13.5-16.0)
[2024-06-22 06:06] LABS: Alanine Aminotransferase 28 U/L (10-49); Albumin, Serum 2.4 gm/dL (3.4-4.8); Albumin/Globulin Ratio 1.1 (1.2-2.2); Alkaline Phosphatase 69 U/L (46-116); Anion Gap 3 (7-16); Aspartate Amino Transferase 50 U/L (0-34); BUN/Creatinine Ratio 60 Ratio (12-20); Bilirubin,Total 0.5 mg/dL (0.3-1.2); Blood Urea Nitrogen 18 mg/dL (9-23); Calcium 8.3 mg/dL (8.3-10.6); Calcium (Corrected) 9.6 mg/dL (8.5-10.1); Carbon Dioxide 29.9 mMol/L (20.0-31.0); Chloride 108 mMol/L (98-107); Creatinine (Component) 0.3 mg/dL (0.6-1.3); Estimated Creatinine Clearance 190.8 mL/min (>60); Globulin 2.2 gm/dL (2.3-3.5); Glucose 98 mg/dL (74-106); Magnesium 2.2 mg/dL (1.6-2.6); Osmolality,Calculated 283 (275-295); Phosphorous 3.1 mg/dL (2.4-5.1); Potassium 3.9 mMol/L (3.4-5.1); Sodium 141 mMol/L (136-145); Total Protein 4.6 gm/dL (5.7-8.2); eGFR > 60 See Note
[2024-06-22] MEDS: MORPHINE SULF INJ 10 MG/ML VIAL 4 MG IVP ×2 (06:32→12:13)
[2024-06-22 07:41] VITALS: BP 104/64; PULSE 66; RESP 17; TEMP 36.6; O2SAT 100
--- NOTE | 2024-06-22 08:52 | ESPR_ITS ---
Documentation for date of: 06/22/24 Subjective Subjective Interval history: Patient evaluated tolerating diet Exam Vital Signs Temp Pulse Resp BP Pulse Ox O2 Del Method O2 Flow Rate 97.8 F 66 17 104/64 100 Room Air 0 06/22/24 07:41 06/22/24 07:41 06/22/24 07:41 06/22/24 07:41 06/22/24 07:41 06/22/24 04:00 06/21/24 12:00 Objective Labs 06/22/24 05:08 06/22/24 05:08 Labs: Laboratory Results - last 24 hr 06/13/24 06/21/24 06/22/24 15:12 05:10 05:08 WBC 7.5 RBC 3.34 L Hgb 7.9 L Hct 25.7 L MCV 77 L MCH 23.7 L MCHC 30.7 L RDW Std Deviation 68.9 H Plt Count 279 D Neut % (Auto) 81 H Lymph % (Auto) 9 L [place] % (Auto) 6 Eos % (Auto) 3 Baso % (Auto) 0 Neut # (Auto) 6.1 Lymph # (Auto) 0.7 L [place] # (Auto) 0.4 Eos # (Auto) 0.2 Baso # (Auto) 0.0 Immature Gran # (Auto) 0.03 H Absolute Nucleated RBC 0.00 Immature Gran % 0 Nucleated RBC % 0 Smear Path Review Sent to Pathologist Sodium 141 Potassium 3.9 Chloride 108 H Carbon Dioxide 29.9 Anion Gap 3 L BUN 18 Creatinine 0.3 L Estim Creat Clear Calc 190.8 eGFR > 60 BUN/Creatinine Ratio 60 H Glucose 98 Calculated Osmolality 283 Calcium 8.3 Corrected Calcium 9.6 Phosphorus 3.1 Magnesium 2.2 Total Bilirubin 0.5 AST 50 H ALT 28 Alkaline Phosphatase 69 Total Protein 4.6 L Albumin 2.4 L Globulin 2.2 L Albumin/Globulin Ratio 1.1 L Crossmatch See Detail Impressions Impression: # Status post exploratory laparotomy right hemicolectomy primary anastomosis doing better Assessment & Plan A&P Narrative 1. Admitted with total obstruction of ascending colon, underwent resection of cecal cancer ileotransverse colostomy. 2. pT2N0 invasive adenocarcinoma well-differentiated surgical margins 40 lymph nodes negative. 3. Recovering satisfactorily now on TPN. 4. Informed patient about follow-up at the cancer treatment center, after receiving referral from primary MD. Time Spent With Patient Time: Total time spent is greater than 50% in coordination of care (as documented) at patient's floor/unit and/or counseling patient:
--- NOTE | 2024-06-22 09:38 | PD.SURPROG ---
Documentation for date of: 06/22/24 Subjective Subjective Narrative: The patient is having liquid bowel movements and tolerating clear liquids. He is also passing gas Exam Vital Signs Temp Pulse Resp BP Pulse Ox O2 Del Method O2 Flow Rate 97.8 F 66 17 104/64 100 Room Air 0 06/22/24 07:41 06/22/24 07:41 06/22/24 07:41 06/22/24 07:41 06/22/24 07:41 06/22/24 04:00 06/21/24 12:00 Patient's vital signs are normal Routine Abdominal Exam Comments: Abdominal examination shows flat abdomen with few bowel sounds with no tenderness anywhere Results Results: Laboratory Laboratory Narrative: Laboratory results look normal Assessment & Plan Assessment Additional comments: Impression: Slow but steady recovery from the right hemicolectomy Plan Plan: I discussed the management with the dietitian who suggest going slow on advancing diet. She also suggested to keep the TPN going at the present rate. We may look at some supplements like Ensure. Will DC IV Tylenol and give p.o. Tylenol only for pain control Procedures Procedures Explored laparotomy and resection of the cecal cancer on ilio transverse colostomy
[2024-06-22] MEDS: THIAMINE INJ 100 MG/ML VIAL 2 ML IV (09:47)
[2024-06-22 12:00] VITALS: BP 96/64; PULSE 88; RESP 18; TEMP 36.6; O2SAT 100
--- NOTE | 2024-06-22 12:02 | PC.DIETICIAN ---
*Continue CPN at 80ml/hr with clear liquid diet. Once solid food diet order in place and tolerating well >50-75% of meals, consider titrate CPN to 1/2 rate of 40ml/hr. *Continue with thiamine to prevent any nutrition deficiencies Closely monitor electrolytes, liver function, and hydration status. *Add daily weights
--- NOTE | 2024-06-22 12:40 | ESPR_ITS ---
<Statement entered by Kandy Barrientos MD - 06/22/24 13:40> I discussed with and supervised my co-resident involved in the care of this patient. I agree with the assessment and plan as documented above. Patient seen at bedside, sitting upright in chair. Had another formed BM, tolerating CLD. Continues to ambulate on his own. He is actively cutting down on his pain regimen as tolerated. Will follow general surgery recommendations to advance diet as tolerated. Kandy Barrientos MD PGY-3 Documentation for date of: 06/22/24 Subjective Subjective Interval history: Pt doing well. Had a bowel movement this morning. Is passing gas. Diet advanced to full liquid. Dr. Brown would like to convert to PO tylenol and discontinue IV. Will advance diet as tolerated and wean off TPN when dietitian thinks it appropriate. Exam Vital Signs Temp Pulse Resp BP Pulse Ox O2 Del Method O2 Flow Rate 98 F 88 18 96/64 100 Room Air 0 06/22/24 12:00 06/22/24 12:00 06/22/24 12:00 06/22/24 12:00 06/22/24 12:00 06/22/24 12:00 06/21/24 12:00 Narrative Exam Constitutional: Cachectic, appears older than stated age Head: Normocephalic/Atraumatic Eyes: no conjunctival injection , symmetrical lids. ENMT: Moist Mucous Membranes CVS: Regular rate and rhythm RESP: no increased work of breathing, resting comfortably on room air GI: Soft, nondistended, mildly tender throughout, 10 cm well-healed surgical site with james across the mid abdomen Skin: Warm to touch, Dry. Neuro: Alert and oriented x 3, moves all limbs spontaneously Psych: Appropriate mood and affect. Objective Labs 06/23/24 04:40 06/23/24 04:40 Labs: Laboratory Results - last 24 hr 06/21/24 06/22/24 05:10 05:08 WBC 7.5 RBC 3.34 L Hgb 7.9 L Hct 25.7 L MCV 77 L MCH 23.7 L MCHC 30.7 L RDW Std Deviation 68.9 H Plt Count 279 D Neut % (Auto) 81 H Lymph % (Auto) 9 L [place] % (Auto) 6 Eos % (Auto) 3 Baso % (Auto) 0 Neut # (Auto) 6.1 Lymph # (Auto) 0.7 L [place] # (Auto) 0.4 Eos # (Auto) 0.2 Baso # (Auto) 0.0 Immature Gran # (Auto) 0.03 H Absolute Nucleated RBC 0.00 Immature Gran % 0 Nucleated RBC % 0 Smear Path Review Sent to Pathologist Sodium 141 Potassium 3.9 Chloride 108 H Carbon Dioxide 29.9 Anion Gap 3 L BUN 18 Creatinine 0.3 L Estim Creat Clear Calc 190.8 eGFR > 60 BUN/Creatinine Ratio 60 H Glucose 98 Calculated Osmolality 283 Calcium 8.3 Corrected Calcium 9.6 Phosphorus 3.1 Magnesium 2.2 Total Bilirubin 0.5 AST 50 H ALT 28 Alkaline Phosphatase 69 Total Protein 4.6 L Albumin 2.4 L Globulin 2.2 L Albumin/Globulin Ratio 1.1 L Quality Measures Quality Measures VTE prophylaxis Assessment & Plan Assessment Current Active Medications: Generic Name Dose Route Start Last Admin Trade Name Freq PRN Reason Stop Dose Admin Acetaminophen 650 mg 06/21/24 09:34 06/21/24 11:35 Acetaminophen 325 Mg Tablet PO 07/21/24 09:33 650 mg Q6HR PRN Administration pain 1-3 or fever > 100.4 Hydrocodone Bitart/Acetaminophen 1 tab 06/20/24 21:02 Hydrocodone/Apap 5/325 Tablet PO 06/25/24 21:01 Q4HR PRN PAIN SCALE 4-6 (Moderate Fat Emulsion Intravenous 500 mls @ 32 mls/hr 06/16/24 18:00 06/21/24 18:37 Intralipid 20% Iv IV 07/16/24 17:59 32 mls/hr MoWeFr SAMUEL Administration Potassium Chloride 20 meq/ 2,020 mls @ 80 mls/hr 06/21/24 18:00 06/21/24 18:37 Multivitamins/Minerals 10 ml/ IV 06/22/24 17:59 80 mls/hr Amino Acids/Electrolytes .Q24H SAMUEL Administration Morphine Sulfate 4 mg 06/20/24 17:36 06/22/24 12:13 Morphine Sulf Inj 10 Mg/Ml Vial IVP 06/22/24 17:35 4 mg Q6HR PRN Administration Breakthrough Pain Ondansetron HCl 4 mg 06/15/24 19:16 Ondansetron Inj 2 Mg/Ml Inj 2 Ml IV 07/15/24 19:15 Q4HR PRN NAUSEA OR VOMITING Thiamine HCl 100 mg 06/17/24 10:15 06/22/24 09:47 Thiamine Inj 100 Mg/Ml Vial 2 Ml IV 06/23/24 10:14 100 mg QDAY SAMUEL Administration Plan Mr. Solares is a 63-year-old male with past medical history of cervical spine injury who presented to [facility] emergency department on 06/13/2024 with a chief complaint of abdominal pain. History of recent admission where he was diagnosed with colonic mass at that time. Unable to receive colonoscopy or ex lap as patient AMA at that time. Patient admitted for possible ex lap and further workup for colon mass. #Colon adenocarcinoma #Microcytic hypochromic anemia Extensive imaging on last admission showed a total obstruction of the ascending colon by a large tumor mass and general surgeon stated that patient will need an ex lap at this time, but patient had to leave to address personal matters, then returned for evaluation. Chest/abdomen/pelvis CTA (06/09/24) showed a large tumor mass in cecum and ascending colon with adjacent lymphadenopathy as well as fluid adjacent to mass suspicious for perforation versus peritoneal carcinomatosis. X-ray barium enema showed obstruction of the ascending colon by tumor mass Nuclear medicine bone scan shows Positive bone scan but nonspecific, the foci of increased uptake in the left sixth and seventh ribs appear to be old fractures on the CT chest study Exploratory laparotomy on 06/15 with resection of the cecal cancer/ right hemicolectomy with anastomosis. Did not visualize any metastatic disease in the liver or peritoneal cavity. Pathology from surgery shows adenocarcinoma without spread to the lymph nodes. Patient has been updated on diagnosis and will follow-up Dr. Lares outpatient once discharged. Plan: - GI, general surgey, oncology following -Receiving TPN, being overseen by dietitian -started full liquid today. Watching for refeeding syndrome. Repleting electrolytes as needed. -IV Tylenol or pain PRN for now. Not tolerating p.o. medication #Asymptomatic bacteruria #Electrolyte imbalances, resolved Health Maintenance Dispo: on TPN, pending general surgery recommendations on advancing diet DVT prophylaxis: Heparin every 12 hours GI prophylaxis: Not indicated. Diet: Clear liquids Lines: Peripheral IV Code status: Full code I have reviewed and discussed the patient's care with my attending, Dr. Jones and senior Dr. Barrientos. Andrew Anderson DO, PGY1 Attending Provider Attestation/Addendum I, Najma Jones, , attest that I was physically present for the vera portions of the service and evaluated the patient with the resident and I reviewed and discussed the case with the resident and agree with the resident's findings and plans of care as documented above Patient seen and evaluated this AM. Patient states he is feeling well, reports some b/l LE edema likely due to TPN. However, patient states that he had been sitting up in the chair all of yesterday. Encouraged patient to keep legs elevated. Patient reports pain is better controlled. Transitioning to PO pain medications. patient reports having had a large BM yesterday. Diet advanced by surgeon. Continue with postop care.
[2024-06-22 16:00] VITALS: BP 99/65; PULSE 86; RESP 16; TEMP 37; O2SAT 98
[2024-06-22] MEDS: ACETAMINOPHEN 325 MG TABLET 650 MG PO (16:08)
[2024-06-22] MEDS: POT CHL ADDITIVE IV (17:57)
[2024-06-22] MEDS: [UNRECOGNIZED DRUG - OTHER] IV (17:57)
[2024-06-22] MEDS: AMINO ACID IV (17:57)
[2024-06-22] MEDS: MULTIVITAMIN IV (17:57)
[2024-06-22 20:00] VITALS: BP 96/64; PULSE 68; RESP 16; TEMP 36.6; O2SAT 100
[2024-06-22] MEDS: MORPHINE SULF INJ 10 MG/ML VIAL 2 MG IVP (20:15)
[2024-06-23] VITALS (7 sets, daily range): BP systolic 97–107; BP diastolic 61–71; PULSE 54–87; RESP 16–99; TEMP 36.3–36.8; O2SAT 98–100; BMI 17.2
[2024-06-23] MEDS: ACETAMINOPHEN 325 MG TABLET 650 MG PO ×2 (02:38→13:16)
[2024-06-23 06:11] LABS: Basophils % (Auto) 0 % (0-2.5); Eosinophils # (Auto) 0.2 Thou/mm3 (0.0-0.5); Eosinophils % (Auto) 4 % (0-10); Hematocrit 24.9 % (41.0-53.0); Immature Granulocytes % (Auto) 0 % (0-0); Immature Granulocytes Auto 0.02 Thou/mm3 (0.00-0.00); Lymphocytes # (Auto) 0.6 Thou/mm3 (1.0-4.8); Lymphocytes % (Auto) 13 % (10-50); Mean Corpuscular HGB Conc 30.5 g/dl (31.0-37.0); Mean Corpuscular Hemoglobin 23.5 pg (25.0-35.0); Mean Corpuscular Volume 77 fL (80-100); Monocytes # (Auto) 0.3 Thou/mm3 (0.0-0.8); Monocytes % (Auto) 7 % (0-12); Neutrophils # (Auto) 3.6 Thou/mm3 (1.8-7.7); Neutrophils % (Auto) 75 % (37-80); Nucleated Red Blood Cell % 0 /100 WBC (0); Red Blood Count 3.24 Miln/mm3 (4.50-5.90); White Blood Count 4.8 Thou/mm3 (3.8-10.6)
[2024-06-23 06:13] LABS: Hemoglobin 7.6 g/dL (13.5-16.0)
[2024-06-23 06:28] LABS: Platelet Count 266 Thou/mm3 (140-440)
[2024-06-23 06:32] LABS: Alanine Aminotransferase 32 U/L (10-49); Albumin, Serum 2.4 gm/dL (3.4-4.8); Albumin/Globulin Ratio 1.1 (1.2-2.2); Alkaline Phosphatase 65 U/L (46-116); Anion Gap 2 (7-16); Aspartate Amino Transferase 50 U/L (0-34); BUN/Creatinine Ratio 63 Ratio (12-20); Bilirubin,Total 0.5 mg/dL (0.3-1.2); Blood Urea Nitrogen 19 mg/dL (9-23); Calcium 8.6 mg/dL (8.3-10.6); Calcium (Corrected) 9.9 mg/dL (8.5-10.1); Chloride 110 mMol/L (98-107); Creatinine (Component) 0.3 mg/dL (0.6-1.3); Estimated Creatinine Clearance 190.8 mL/min (>60); Globulin 2.2 gm/dL (2.3-3.5); Glucose 103 mg/dL (74-106); Osmolality,Calculated 287 (275-295); Phosphorous 3.7 mg/dL (2.4-5.1); Sodium 143 mMol/L (136-145); Total Protein 4.6 gm/dL (5.7-8.2); eGFR > 60 See Note
[2024-06-23 06:35] LABS: Slide Review Platelets confirmed
[2024-06-23] MEDS: MORPHINE SULF INJ 10 MG/ML VIAL 2 MG IVP ×3 (08:04→23:20)
[2024-06-23] MEDS: THIAMINE INJ 100 MG/ML VIAL 2 ML IV (08:05)
--- NOTE | 2024-06-23 11:34 | ESPR_ITS ---
Documentation for date of: 06/23/24 Subjective Subjective Interval history: Patient evaluated Passing flatus and had a bowel movement Exam Vital Signs Temp Pulse Resp BP Pulse Ox O2 Del Method O2 Flow Rate 97.4 F 61 18 102/61 98 Room Air 0 06/23/24 07:32 06/23/24 07:32 06/23/24 07:32 06/23/24 07:32 06/23/24 07:32 06/23/24 07:32 06/21/24 12:00 Objective Labs 06/24/24 08:51 06/24/24 08:51 Labs: Laboratory Results - last 24 hr 06/23/24 04:40 WBC 4.8 RBC 3.24 L Hgb 7.6 L Hct 24.9 L MCV 77 L MCH 23.5 L MCHC 30.5 L RDW Std Deviation Not Performed. Plt Count 266 Neut % (Auto) 75 Lymph % (Auto) 13 [place] % (Auto) 7 Eos % (Auto) 4 Baso % (Auto) 0 Neut # (Auto) 3.6 Lymph # (Auto) 0.6 L [place] # (Auto) 0.3 Eos # (Auto) 0.2 Baso # (Auto) 0.0 Immature Gran # (Auto) 0.02 H Absolute Nucleated RBC 0.00 Immature Gran % 0 Nucleated RBC % 0 Sodium 143 Potassium 4.0 Chloride 110 H Carbon Dioxide 31.0 Anion Gap 2 L BUN 19 Creatinine 0.3 L Estim Creat Clear Calc 190.8 eGFR > 60 BUN/Creatinine Ratio 63 H Glucose 103 Calculated Osmolality 287 Calcium 8.6 Corrected Calcium 9.9 Phosphorus 3.7 Magnesium 2.0 Total Bilirubin 0.5 AST 50 H ALT 32 Alkaline Phosphatase 65 Total Protein 4.6 L Albumin 2.4 L Globulin 2.2 L Albumin/Globulin Ratio 1.1 L Misc Test Result Platelets confirmed Impressions Impression: # pT2 N0 adenocarcinoma of the right colon status post right hemicolectomy Continue current management Assessment & Plan A&P Narrative 1. Admitted with total obstruction of ascending colon, underwent resection of cecal cancer ileotransverse colostomy. 2. pT2N0 invasive adenocarcinoma well-differentiated surgical margins 40 lymph nodes negative. 3. Recovering satisfactorily now on TPN. 4. Informed patient about follow-up at the cancer treatment center, after receiving referral from primary MD. Time Spent With Patient Time: Total time spent is greater than 50% in coordination of care (as documented) at patient's floor/unit and/or counseling patient:
--- NOTE | 2024-06-23 12:43 | ESPR_ITS ---
<Statement entered by Kandy Barrientos MD - 06/23/24 17:35> I discussed with and supervised my co-resident involved in the care of this patient. I agree with the assessment and plan as documented above. Patient doing well, sitting upright in bed. Remains on TPN. Diet advanced per general surgery. Kandy Barrientos MD PGY-3 Documentation for date of: 06/23/24 Subjective Subjective Interval history: Patient is doing well. Gets out of bed daily. Having BMs. Progressed his diet to soft foods which he tolerated okay. Still receiving TPN which is being overseen by dietitian. Will continue to progress diet slowly. Exam Vital Signs Temp Pulse Resp BP Pulse Ox O2 Del Method O2 Flow Rate 97.6 F 87 18 107/71 98 Room Air 0 06/23/24 11:36 06/23/24 11:36 06/23/24 11:36 06/23/24 11:36 06/23/24 11:36 06/23/24 11:36 06/21/24 12:00 Narrative Exam Constitutional: Cachectic, appears older than stated age Head: Normocephalic/Atraumatic Eyes: no conjunctival injection , symmetrical lids. ENMT: Moist Mucous Membranes CVS: Regular rate and rhythm RESP: no increased work of breathing, resting comfortably on room air GI: Soft, nondistended, mildly tender throughout, 10 cm well-healed surgical site with james across the mid abdomen Skin: Warm to touch, Dry. Neuro: Alert and oriented x 3, moves all limbs spontaneously Psych: Appropriate mood and affect. Objective Labs 06/24/24 08:51 06/24/24 08:51 Labs: Laboratory Results - last 24 hr 06/23/24 04:40 WBC 4.8 RBC 3.24 L Hgb 7.6 L Hct 24.9 L MCV 77 L MCH 23.5 L MCHC 30.5 L RDW Std Deviation Not Performed. Plt Count 266 Neut % (Auto) 75 Lymph % (Auto) 13 [place] % (Auto) 7 Eos % (Auto) 4 Baso % (Auto) 0 Neut # (Auto) 3.6 Lymph # (Auto) 0.6 L [place] # (Auto) 0.3 Eos # (Auto) 0.2 Baso # (Auto) 0.0 Immature Gran # (Auto) 0.02 H Absolute Nucleated RBC 0.00 Immature Gran % 0 Nucleated RBC % 0 Sodium 143 Potassium 4.0 Chloride 110 H Carbon Dioxide 31.0 Anion Gap 2 L BUN 19 Creatinine 0.3 L Estim Creat Clear Calc 190.8 eGFR > 60 BUN/Creatinine Ratio 63 H Glucose 103 Calculated Osmolality 287 Calcium 8.6 Corrected Calcium 9.9 Phosphorus 3.7 Magnesium 2.0 Total Bilirubin 0.5 AST 50 H ALT 32 Alkaline Phosphatase 65 Total Protein 4.6 L Albumin 2.4 L Globulin 2.2 L Albumin/Globulin Ratio 1.1 L Misc Test Result Platelets confirmed Quality Measures Quality Measures VTE prophylaxis Assessment & Plan Assessment Current Active Medications: Generic Name Dose Route Start Last Admin Trade Name Freq PRN Reason Stop Dose Admin Acetaminophen 650 mg 06/21/24 09:34 06/23/24 02:38 Acetaminophen 325 Mg Tablet PO 07/21/24 09:33 650 mg Q6HR PRN Administration pain 1-3 or fever > 100.4 Hydrocodone Bitart/Acetaminophen 1 tab 06/20/24 21:02 Hydrocodone/Apap 5/325 Tablet PO 06/25/24 21:01 Q4HR PRN PAIN SCALE 4-6 (Moderate Fat Emulsion Intravenous 500 mls @ 32 mls/hr 06/16/24 18:00 06/21/24 18:37 Intralipid 20% Iv IV 07/16/24 17:59 32 mls/hr MoWeFr SAMUEL Administration Potassium Chloride 20 meq/ 2,020 mls @ 80 mls/hr 06/21/24 18:00 06/22/24 17:57 Multivitamins/Minerals 10 ml/ IV 06/24/24 17:59 80 mls/hr Amino Acids/Electrolytes .Q24H SAMUEL Administration Protocol Morphine Sulfate 2 mg 06/22/24 17:37 06/23/24 08:04 Morphine Sulf Inj 10 Mg/Ml Vial IVP 06/27/24 17:36 2 mg Q4HR PRN Administration PAIN RATED 7-10 Ondansetron HCl 4 mg 06/15/24 19:16 Ondansetron Inj 2 Mg/Ml Inj 2 Ml IV 07/15/24 19:15 Q4HR PRN NAUSEA OR VOMITING Plan Mr. Solares is a 63-year-old male with past medical history of cervical spine injury who presented to [facility] emergency department on 06/13/2024 with a chief complaint of abdominal pain. History of recent admission where he was diagnosed with colonic mass at that time. Unable to receive colonoscopy or ex lap as patient AMA at that time. Patient admitted for possible ex lap and further workup for colon mass. #Colon adenocarcinoma #Microcytic hypochromic anemia Extensive imaging on last admission showed a total obstruction of the ascending colon by a large tumor mass and general surgeon stated that patient will need an ex lap at this time, but patient had to leave to address personal matters, then returned for evaluation. Chest/abdomen/pelvis CTA (06/09/24) showed a large tumor mass in cecum and ascending colon with adjacent lymphadenopathy as well as fluid adjacent to mass suspicious for perforation versus peritoneal carcinomatosis. X-ray barium enema showed obstruction of the ascending colon by tumor mass Nuclear medicine bone scan shows Positive bone scan but nonspecific, the foci of increased uptake in the left sixth and seventh ribs appear to be old fractures on the CT chest study Exploratory laparotomy on 06/15 with resection of the cecal cancer/ right hemicolectomy with anastomosis. Did not visualize any metastatic disease in the liver or peritoneal cavity. Pathology from surgery shows adenocarcinoma without spread to the lymph nodes. Patient has been updated on diagnosis and will follow-up Dr. Lares outpatient once discharged. Plan: - GI, general surgey, oncology following -Receiving TPN, being overseen by dietitian -started pur?ed diet today. Watching for refeeding syndrome. Repleting electrolytes as needed. -IV Tylenol or pain PRN for now. Not tolerating p.o. medication #Asymptomatic bacteruria #Electrolyte imbalances, resolved Health Maintenance Dispo: on TPN, pending general surgery recommendations on advancing diet DVT prophylaxis: Heparin every 12 hours GI prophylaxis: Not indicated. Diet: Clear liquids Lines: Peripheral IV Code status: Full code I have reviewed and discussed the patient's care with my attending, Dr. Head and senior Dr. Barrientos. Andrew Anderson DO, PGY1 Attending Provider Attestation/Addendum I have discussed and was present for the essential components of the history, physical examination, diagnosis, and treatment plan with the resident. I agree with the patient's care as documented by the resident and amended herein by me. Harley Head DO. Although this document has been carefully reviewed, there may still be some phonetic and other typographical errors. These errors are purely grammatical due to imperfections in the software program and should not be construed in any way to compromise the substance of the patient's medical care during this visit.
--- NOTE | 2024-06-23 14:33 | PC.SS ---
SS follow up note; Advancing Diet, Possible discharge within 1-2 days.
[2024-06-23] MEDS: [UNRECOGNIZED DRUG - OTHER] IV (17:43)
[2024-06-23] MEDS: MAGNESIUM SULF IV (17:43)
[2024-06-23] MEDS: MULTIVITAMIN IV (17:43)
[2024-06-23] MEDS: POTASSIUM ACET IV (17:43)
[2024-06-23] MEDS: FAT EMULSIONS 20% IV 500 ML 32 ML IV (17:54)
[2024-06-24] VITALS (7 sets, daily range): BP systolic 90–172; BP diastolic 56–78; PULSE 62–89; RESP 17–94; TEMP 36.2–36.9; O2SAT 96–100; BMI 17.2
[2024-06-24] MEDS: ACETAMINOPHEN 325 MG TABLET 650 MG PO (05:35)
[2024-06-24 09:09] LABS: Basophils % (Auto) 1 % (0-2.5); Eosinophils # (Auto) 0.3 Thou/mm3 (0.0-0.5); Eosinophils % (Auto) 5 % (0-10); Hematocrit 26.6 % (41.0-53.0); Immature Granulocytes % (Auto) 1 % (0-0); Immature Granulocytes Auto 0.04 Thou/mm3 (0.00-0.00); Lymphocytes # (Auto) 0.7 Thou/mm3 (1.0-4.8); Lymphocytes % (Auto) 14 % (10-50); Mean Corpuscular HGB Conc 31.2 g/dl (31.0-37.0); Mean Corpuscular Hemoglobin 24.3 pg (25.0-35.0); Mean Corpuscular Volume 78 fL (80-100); Monocytes # (Auto) 0.3 Thou/mm3 (0.0-0.8); Monocytes % (Auto) 6 % (0-12); Neutrophils # (Auto) 3.4 Thou/mm3 (1.8-7.7); Neutrophils % (Auto) 73 % (37-80); Nucleated Red Blood Cell % 0 /100 WBC (0); Platelet Count 321 Thou/mm3 (140-440); Red Blood Count 3.41 Miln/mm3 (4.50-5.90); White Blood Count 4.7 Thou/mm3 (3.8-10.6)
[2024-06-24 09:26] LABS: Alanine Aminotransferase 94 U/L (10-49); Albumin, Serum 2.9 gm/dL (3.4-4.8); Albumin/Globulin Ratio 1.2 (1.2-2.2); Alkaline Phosphatase 76 U/L (46-116); Anion Gap 5 (7-16); Aspartate Amino Transferase 129 U/L (0-34); BUN/Creatinine Ratio 38 Ratio (12-20); Bilirubin,Total 0.3 mg/dL (0.3-1.2); Blood Urea Nitrogen 15 mg/dL (9-23); Calcium 8.8 mg/dL (8.3-10.6); Calcium (Corrected) 9.7 mg/dL (8.5-10.1); Carbon Dioxide 29.5 mMol/L (20.0-31.0); Chloride 107 mMol/L (98-107); Creatinine (Component) 0.4 mg/dL (0.6-1.3); Estimated Creatinine Clearance 143.1 mL/min (>60); Globulin 2.5 gm/dL (2.3-3.5); Glucose 144 mg/dL (74-106); Osmolality,Calculated 285 (275-295); Potassium 4.1 mMol/L (3.4-5.1); Sodium 141 mMol/L (136-145); Total Protein 5.4 gm/dL (5.7-8.2); eGFR > 60 See Note
[2024-06-24] MEDS: MORPHINE SULF INJ 10 MG/ML VIAL 2 MG IVP ×3 (09:54→22:11)
[2024-06-24 10:29] LABS: Hemoglobin 8.3 g/dL (13.5-16.0); RDW Standard Deviation 72.9 fL (35.1-43.9)
--- NOTE | 2024-06-24 11:44 | ESPR_ITS ---
<Statement entered by Kandy Barrientos MD - 06/24/24 11:51> I discussed with and supervised my co-resident involved in the care of this patient. I agree with the assessment and plan as documented above. Patient doing well at bedside. Tolerating PO intake, passing BM. Still on TPN, dietary following. Electrolytes ok, monitoring for refeeding syndrome. General surgery OK with internal medicine signing off the case. Thank you for allowing us to participate in Mr. Solares's care. Please call if any questions. Kandy Barrientos MD PGY-3 Documentation for date of: 06/24/24 Subjective Subjective Interval history: Patient doing well, is on a pur?ed diet and still receiving TPN. Having daily BMs. Discussed possible discharge with Dr. Brown who noted he would like to continue to keep patient here to monitor for adequate nutrition intake. Dr. Brown is okay with internal medicine team signing off on case. Exam Vital Signs Temp Pulse Resp BP Pulse Ox O2 Del Method O2 Flow Rate 97.4 F 65 17 108/64 99 Room Air 0 06/24/24 07:29 06/24/24 07:29 06/24/24 07:29 06/24/24 07:29 06/24/24 07:29 06/24/24 07:29 06/24/24 04:00 Narrative Exam Constitutional: Cachectic, appears older than stated age Head: Normocephalic/Atraumatic Eyes: no conjunctival injection , symmetrical lids. ENMT: Moist Mucous Membranes CVS: Regular rate and rhythm RESP: no increased work of breathing, resting comfortably on room air GI: Soft, nondistended, mildly tender throughout, 10 cm well-healed surgical site with james across the mid abdomen Skin: Warm to touch, Dry. Neuro: Alert and oriented x 3, moves all limbs spontaneously Psych: Appropriate mood and affect. Objective Labs 06/24/24 08:51 06/24/24 08:51 Labs: Laboratory Results - last 24 hr 06/24/24 08:51 WBC 4.7 RBC 3.41 L Hgb 8.3 L Hct 26.6 L MCV 78 L MCH 24.3 L MCHC 31.2 RDW Std Deviation 72.9 H Plt Count 321 D Neut % (Auto) 73 Lymph % (Auto) 14 [place] % (Auto) 6 Eos % (Auto) 5 Baso % (Auto) 1 Neut # (Auto) 3.4 Lymph # (Auto) 0.7 L [place] # (Auto) 0.3 Eos # (Auto) 0.3 Baso # (Auto) 0.0 Immature Gran # (Auto) 0.04 H Absolute Nucleated RBC 0.00 Immature Gran % 1 H Nucleated RBC % 0 Sodium 141 Potassium 4.1 Chloride 107 Carbon Dioxide 29.5 Anion Gap 5 L BUN 15 Creatinine 0.4 L Estim Creat Clear Calc 143.1 eGFR > 60 BUN/Creatinine Ratio 38 H Glucose 144 H Calculated Osmolality 285 Calcium 8.8 Corrected Calcium 9.7 Total Bilirubin 0.3 AST 129 H ALT 94 H Alkaline Phosphatase 76 Total Protein 5.4 L Albumin 2.9 L D Globulin 2.5 Albumin/Globulin Ratio 1.2 Quality Measures Quality Measures VTE prophylaxis Assessment & Plan Assessment Current Active Medications: Generic Name Dose Route Start Last Admin Trade Name Freq PRN Reason Stop Dose Admin Acetaminophen 650 mg 06/21/24 09:34 06/24/24 05:35 Acetaminophen 325 Mg Tablet PO 07/21/24 09:33 650 mg Q6HR PRN Administration pain 1-3 or fever > 100.4 Hydrocodone Bitart/Acetaminophen 1 tab 06/20/24 21:02 Hydrocodone/Apap 5/325 Tablet PO 06/25/24 21:01 Q4HR PRN PAIN SCALE 4-6 (Moderate Fat Emulsion Intravenous 500 mls @ 32 mls/hr 06/16/24 18:00 06/23/24 17:54 Intralipid 20% Iv IV 07/16/24 17:59 32 mls/hr MoWeFr SAMUEL Administration Potassium Acetate 50 meq/ 2,037 mls @ 80 mls/hr 06/23/24 18:00 06/23/24 17:43 Multivitamins/Minerals 10 ml/ IV 06/24/24 17:59 80 mls/hr Magnesium Sulfate 1 gm/ Amino QDAY@1800 SAMUEL Administration Acids Protocol Morphine Sulfate 2 mg 06/22/24 17:37 06/24/24 09:54 Morphine Sulf Inj 10 Mg/Ml Vial IVP 06/27/24 17:36 2 mg Q4HR PRN Administration PAIN RATED 7-10 Ondansetron HCl 4 mg 06/15/24 19:16 Ondansetron Inj 2 Mg/Ml Inj 2 Ml IV 07/15/24 19:15 Q4HR PRN NAUSEA OR VOMITING Plan Mr. Solares is a 63-year-old male with past medical history of cervical spine injury who presented to [facility] emergency department on 06/13/2024 with a chief complaint of abdominal pain. History of recent admission where he was diagnosed with colonic mass at that time. Unable to receive colonoscopy or ex lap as patient AMA at that time. Patient admitted for possible ex lap and further workup for colon mass. #Colon adenocarcinoma #Microcytic hypochromic anemia Extensive imaging on last admission showed a total obstruction of the ascending colon by a large tumor mass and general surgeon stated that patient will need an ex lap at this time, but patient had to leave to address personal matters, then returned for evaluation. Chest/abdomen/pelvis CTA (06/09/24) showed a large tumor mass in cecum and ascending colon with adjacent lymphadenopathy as well as fluid adjacent to mass suspicious for perforation versus peritoneal carcinomatosis. X-ray barium enema showed obstruction of the ascending colon by tumor mass Nuclear medicine bone scan shows Positive bone scan but nonspecific, the foci of increased uptake in the left sixth and seventh ribs appear to be old fractures on the CT chest study Exploratory laparotomy on 06/15 with resection of the cecal cancer/ right hemicolectomy with anastomosis. Did not visualize any metastatic disease in the liver or peritoneal cavity. Pathology from surgery shows adenocarcinoma without spread to the lymph nodes. Patient has been updated on diagnosis and will follow-up Dr. Lares outpatient once discharged. Plan: - GI, general surgey, oncology following -Receiving TPN, being overseen by dietitian -On pur?ed diet. -Internal medicine team is signing off at this time as we are no longer needed. Dr. Brown (general surgeon) will be taking over as primary care. #Asymptomatic bacteruria #Electrolyte imbalances, resolved Health Maintenance Dispo: on TPN, pending general surgery recommendations on advancing diet DVT prophylaxis: Heparin every 12 hours GI prophylaxis: Not indicated. Diet: Clear liquids Lines: Peripheral IV Code status: Full code I have reviewed and discussed the patient's care with my attending, Dr. Head and senior Dr. Barrientos. Andrew Anderson DO, PGY1 Attending Provider Attestation/Addendum I have discussed and was present for the essential components of the history, physical examination, diagnosis, and treatment plan with the resident. I agree with the patient's care as documented by the resident and amended herein by me. Harley Head DO. Patient seen and evaluated this AM. Patient doing very well this morning, tolerating diet up to this point, patient also remains on TPN at this time. We did speak with general surgery, Dr. Brown this morning, who will take over care from this point hence we will sign off of this case at this time and transfer care to Dr. Brown. Although this document has been carefully reviewed, there may still be some phonetic and other typographical errors. These errors are purely grammatical due to imperfections in the software program and should not be construed in any way to compromise the substance of the patient's medical care during this visit.
--- NOTE | 2024-06-24 14:39 | PC.SS ---
SS follow up note; Dr. Brown is following patient and will discharge patient when medically cleared.
--- NOTE | 2024-06-24 15:53 | PC.NURSE ---
Patient came up to the nurses station and had triple lumen IV in his hands. We walked patient back to room.Nurse Katiuska removed stitches and we made sure catheter was intact.
[2024-06-24] MEDS: POTASSIUM ACET IV (17:05)
[2024-06-24] MEDS: [UNRECOGNIZED DRUG - OTHER] IV (17:05)
[2024-06-24] MEDS: MAGNESIUM SULF IV (17:05)
--- NOTE | 2024-06-24 17:53 | PD.SURPROG ---
Documentation for date of: 06/24/24 Subjective Subjective Narrative: Patient tolerating pur?ed diet recommended by dietitian. Exam Vital Signs Temp Pulse Resp BP Pulse Ox O2 Del Method O2 Flow Rate 97.2 F 73 18 94/58 L 96 Room Air 0 06/24/24 16:00 06/24/24 16:00 06/24/24 16:00 06/24/24 16:00 06/24/24 16:00 06/24/24 16:00 06/24/24 04:00 Narrative Exam His vital signs are normal Routine Abdominal Exam Comments: Abdominal examination is negative. Patient is having bowel movements Results Results: Laboratory Laboratory Narrative: Laboratory results are within normal limits Assessment & Plan Assessment Additional comments: Impression: Patient unfortunately pulled out the central line by accident. Therefore a peripheral line with PPN has been started Plan Plan: We shall continue peripheral nutrition along with oral intake with pur?ed diet. We will let dietitian controll the dietary needs and plan discharge in a couple of days. Procedures Procedures Explored laparotomy and resection of the cecal cancer on ilio transverse colostomy
--- NOTE | 2024-06-24 21:05 | PD.IMPROG ---
Documentation for date of: 06/24/24 Subjective Subjective Interval history: Patient evaluated The central line accidentally was pulled out Patient on peripheral TPN and pur?ed diet tolerating it Exam Vital Signs Temp Pulse Resp BP Pulse Ox O2 Del Method O2 Flow Rate 97.9 F 68 17 90/56 L 99 Room Air 0 06/24/24 20:00 06/24/24 20:00 06/24/24 20:00 06/24/24 20:00 06/24/24 20:00 06/24/24 20:00 06/24/24 04:00 Objective Labs 06/24/24 08:51 06/24/24 08:51 Labs: Laboratory Results - last 24 hr 06/24/24 08:51 WBC 4.7 RBC 3.41 L Hgb 8.3 L Hct 26.6 L MCV 78 L MCH 24.3 L MCHC 31.2 RDW Std Deviation 72.9 H Plt Count 321 D Neut % (Auto) 73 Lymph % (Auto) 14 [place] % (Auto) 6 Eos % (Auto) 5 Baso % (Auto) 1 Neut # (Auto) 3.4 Lymph # (Auto) 0.7 L [place] # (Auto) 0.3 Eos # (Auto) 0.3 Baso # (Auto) 0.0 Immature Gran # (Auto) 0.04 H Absolute Nucleated RBC 0.00 Immature Gran % 1 H Nucleated RBC % 0 Sodium 141 Potassium 4.1 Chloride 107 Carbon Dioxide 29.5 Anion Gap 5 L BUN 15 Creatinine 0.4 L Estim Creat Clear Calc 143.1 eGFR > 60 BUN/Creatinine Ratio 38 H Glucose 144 H Calculated Osmolality 285 Calcium 8.8 Corrected Calcium 9.7 Total Bilirubin 0.3 AST 129 H ALT 94 H Alkaline Phosphatase 76 Total Protein 5.4 L Albumin 2.9 L D Globulin 2.5 Albumin/Globulin Ratio 1.2 Impressions Impression: # pT2 N0 adenocarcinoma of the right colon status post right hemicolectomy # On PPI Assessment & Plan A&P Narrative 1. Admitted with total obstruction of ascending colon, underwent resection of cecal cancer ileotransverse colostomy. 2. pT2N0 invasive adenocarcinoma well-differentiated surgical margins 40 lymph nodes negative. 3. Recovering satisfactorily now on TPN. 4. Informed patient about follow-up at the cancer treatment center, after receiving referral from primary MD. Time Spent With Patient Time: Total time spent is greater than 50% in coordination of care (as documented) at patient's floor/unit and/or counseling patient:
[2024-06-25] VITALS (12 sets, daily range): BP systolic 95–118; BP diastolic 61–70; PULSE 53–100; RESP 16–98; TEMP 36.1–36.8; O2SAT 56–99
[2024-06-25] MEDS: [UNRECOGNIZED DRUG - OTHER] IV (05:36)
[2024-06-25] MEDS: POTASSIUM ACET IV (05:36)
[2024-06-25] MEDS: MAGNESIUM SULF IV (05:36)
[2024-06-25] MEDS: MORPHINE SULF INJ 10 MG/ML VIAL 2 MG IVP ×2 (05:40→14:21)
[2024-06-25 05:45] LABS: Basophils % (Auto) 1 % (0-2.5); Eosinophils # (Auto) 0.2 Thou/mm3 (0.0-0.5); Eosinophils % (Auto) 6 % (0-10); Hematocrit 22.7 % (41.0-53.0); Immature Granulocytes % (Auto) 1 % (0-0); Immature Granulocytes Auto 0.03 Thou/mm3 (0.00-0.00); Lymphocytes # (Auto) 0.9 Thou/mm3 (1.0-4.8); Lymphocytes % (Auto) 24 % (10-50); Mean Corpuscular HGB Conc 30.4 g/dl (31.0-37.0); Mean Corpuscular Hemoglobin 23.5 pg (25.0-35.0); Mean Corpuscular Volume 78 fL (80-100); Monocytes # (Auto) 0.3 Thou/mm3 (0.0-0.8); Monocytes % (Auto) 8 % (0-12); Neutrophils # (Auto) 2.1 Thou/mm3 (1.8-7.7); Neutrophils % (Auto) 60 % (37-80); Nucleated Red Blood Cell % 0 /100 WBC (0); Platelet Count 286 Thou/mm3 (140-440); Red Blood Count 2.93 Miln/mm3 (4.50-5.90); White Blood Count 3.6 Thou/mm3 (3.8-10.6)
[2024-06-25 06:05] LABS: Hemoglobin 6.9 g/dL (13.5-16.0); RDW Standard Deviation 43.9 fL (35.1-43.9)
[2024-06-25 06:14] LABS: Alanine Aminotransferase 85 U/L (10-49); Albumin, Serum 2.5 gm/dL (3.4-4.8); Albumin/Globulin Ratio 1.1 (1.2-2.2); Alkaline Phosphatase 67 U/L (46-116); Anion Gap 4 (7-16); Aspartate Amino Transferase 97 U/L (0-34); BUN/Creatinine Ratio 45 Ratio (12-20); Bilirubin,Total 0.3 mg/dL (0.3-1.2); Blood Urea Nitrogen 18 mg/dL (9-23); Calcium 8.6 mg/dL (8.3-10.6); Calcium (Corrected) 9.8 mg/dL (8.5-10.1); Carbon Dioxide 29.4 mMol/L (20.0-31.0); Chloride 109 mMol/L (98-107); Creatinine (Component) 0.4 mg/dL (0.6-1.3); Estimated Creatinine Clearance 143.1 mL/min (>60); Globulin 2.3 gm/dL (2.3-3.5); Glucose 87 mg/dL (74-106); Osmolality,Calculated 284 (275-295); Potassium 4.1 mMol/L (3.4-5.1); Sodium 142 mMol/L (136-145); Total Protein 4.8 gm/dL (5.7-8.2); eGFR > 60 See Note
[2024-06-25 07:47] LABS: Basophils % (Auto) 1 % (0-2.5); Eosinophils # (Auto) 0.2 Thou/mm3 (0.0-0.5); Eosinophils % (Auto) 6 % (0-10); Hematocrit 24.1 % (41.0-53.0); Immature Granulocytes % (Auto) 0 % (0-0); Immature Granulocytes Auto 0.01 Thou/mm3 (0.00-0.00); Lymphocytes # (Auto) 0.8 Thou/mm3 (1.0-4.8); Lymphocytes % (Auto) 23 % (10-50); Mean Corpuscular HGB Conc 30.7 g/dl (31.0-37.0); Mean Corpuscular Volume 78 fL (80-100); Monocytes # (Auto) 0.2 Thou/mm3 (0.0-0.8); Monocytes % (Auto) 7 % (0-12); Neutrophils # (Auto) 2.1 Thou/mm3 (1.8-7.7); Neutrophils % (Auto) 63 % (37-80); Nucleated Red Blood Cell % 0 /100 WBC (0); Platelet Count 259 Thou/mm3 (140-440); Red Blood Count 3.08 Miln/mm3 (4.50-5.90); White Blood Count 3.3 Thou/mm3 (3.8-10.6)
--- NOTE | 2024-06-25 08:51 | XR_ITS ---
Examination: Abdomen 2 views TECHNIQUE: AP supine AP upright portable abdomens 2 views Exam date and time: June 25, 2024 0940 hours INDICATIONS: Abdominal pain beginning one week ago FINDINGS: Free air beneath the hemidiaphragms Air distended stomach Marianne across the lower right abdomen Nonobstructive bowel gas pattern IMPRESSION: Free air beneath the hemidiaphragms, which may be postoperative, clinical correlation advised Air distended stomach
[2024-06-25 09:14] LABS: Hemoglobin 7.3 g/dL (13.5-16.0)
[2024-06-25 09:44] LABS: Magnesium 2.2 mg/dL (1.6-2.6); Phosphorous 2.5 mg/dL (2.4-5.1)
--- NOTE | 2024-06-25 14:18 | PD.SURPROG ---
Documentation for date of: 06/25/24 Subjective Subjective Narrative: Patient's general condition is essentially unchanged. Exam Vital Signs Temp Pulse Resp BP Pulse Ox O2 Del Method O2 Flow Rate 97.1 F 65 17 109/67 99 Room Air 0 06/25/24 12:00 06/25/24 12:00 06/25/24 12:00 06/25/24 12:00 06/25/24 12:00 06/25/24 12:00 06/24/24 04:00 His vital signs are normal Routine Abdominal Exam Comments: Abdominal examination is unremarkable even though he has some crampy pain sometimes Results Results: Laboratory Laboratory Narrative: Patient's laboratory workup showed a sudden drop in the hemoglobin to 6.9 it was around 8 g. Repeat labs showed hemoglobin to be 7.3 g Assessment & Plan Assessment Additional comments: Impression: Postoperative anemia aggravated with hemodilution Bilateral leg swelling Plan Plan: I suggested that we give him 2 units of packed cells even though he is not going to have anymore surgery. Because of the severe weight loss and nutritional setback that he has had last month he will have a considerable time building up his hemoglobin. Therefore it is prudent to give him 2 units of RBCs. I have discussed with the dietitian regarding the diet and she is stopping the PPN today and switching him to soft diet from pur?ed diet. Procedures Procedures Explored laparotomy and resection of the cecal cancer on ilio transverse colostomy
--- NOTE | 2024-06-25 19:42 | PC.NURSE ---
@1942 patient had a chief complaint of pain and wanted something for pain. I notified patient that the doctor has discontinued his morphine and now only has narco and tylenol for pain. The patient stated if we are able to call the doctor and ask if he can have morphine for tonight and he will start the narco later. Dr. Brown was contacted and was made aware of the patient's request for morphine. Per Dr. Brown, ordered 3mg morphine IVP, every 6hrs PRN. Nurse read back the order to the doctor for confirmation and doctor replied that the order was correct. Order was inputed.
[2024-06-25] MEDS: MORPHINE SULF INJ 10 MG/ML VIAL 3 MG IVP (20:26)
--- NOTE | 2024-06-25 20:35 | ESPR_ITS ---
Documentation for date of: 06/25/24 Subjective Subjective Interval history: Patient evaluated Hemoglobin hematocrit 7.3 and 24.1 able to eat better Had a bowel movement Exam Vital Signs Temp Pulse Resp BP Pulse Ox O2 Del Method O2 Flow Rate 97.4 F 71 18 118/70 99 Room Air 0 06/25/24 16:00 06/25/24 16:00 06/25/24 16:00 06/25/24 16:00 06/25/24 16:00 06/25/24 16:00 06/24/24 04:00 Objective Labs 06/25/24 07:15 06/25/24 04:35 Labs: Laboratory Results - last 24 hr 06/25/24 06/25/24 04:35 07:15 WBC 3.6 L 3.3 L RBC 2.93 L 3.08 L Hgb 6.9 L* 7.3 L Hct 22.7 L 24.1 L MCV 78 L 78 L MCH 23.5 L 24.0 L MCHC 30.4 L 30.7 L RDW Std Deviation 43.9 Not Performed. Plt Count 286 D 259 Neut % (Auto) 60 63 Lymph % (Auto) 24 23 [place] % (Auto) 8 7 Eos % (Auto) 6 6 Baso % (Auto) 1 1 Neut # (Auto) 2.1 2.1 Lymph # (Auto) 0.9 L 0.8 L [place] # (Auto) 0.3 0.2 Eos # (Auto) 0.2 0.2 Baso # (Auto) 0.0 0.0 Immature Gran # (Auto) 0.03 H 0.01 H Absolute Nucleated RBC 0.00 0.00 Immature Gran % 1 H 0 Nucleated RBC % 0 0 Sodium 142 Potassium 4.1 Chloride 109 H Carbon Dioxide 29.4 Anion Gap 4 L BUN 18 Creatinine 0.4 L Estim Creat Clear Calc 143.1 eGFR > 60 BUN/Creatinine Ratio 45 H Glucose 87 D Calculated Osmolality 284 Calcium 8.6 Corrected Calcium 9.8 Phosphorus 2.5 Magnesium 2.2 Total Bilirubin 0.3 AST 97 H ALT 85 H Alkaline Phosphatase 67 Total Protein 4.8 L Albumin 2.5 L Globulin 2.3 Albumin/Globulin Ratio 1.1 L Blood Type O Positive Antibody Screen NEGATIVE Crossmatch See Detail Blood Bank Wristband ID Yes Impressions Impression: Status post right hemicolectomy with primary anastomosis for pT2 N0 well- differentiated adenocarcinoma continue current management Assessment & Plan A&P Narrative 1. Admitted with total obstruction of ascending colon, underwent resection of cecal cancer ileotransverse colostomy. 2. pT2N0 invasive adenocarcinoma well-differentiated surgical margins 40 lymph nodes negative. 3. Recovering satisfactorily now on TPN. 4. Informed patient about follow-up at the cancer treatment center, after receiving referral from primary MD. Time Spent With Patient Time: Total time spent is greater than 50% in coordination of care (as documented) at patient's floor/unit and/or counseling patient:
[2024-06-26] VITALS (11 sets, daily range): BP systolic 103–120; BP diastolic 61–73; PULSE 54–86; RESP 16–99; TEMP 36.1–36.8; O2SAT 93–99
[2024-06-26] MEDS: MORPHINE SULF INJ 10 MG/ML VIAL 3 MG IVP (03:09)
[2024-06-26 09:38] LABS: Hematocrit 31.9 % (41.0-53.0); Hemoglobin 9.9 g/dL (13.5-16.0)
--- NOTE | 2024-06-26 11:54 | PD.SURPROG ---
Documentation for date of: 06/26/24 Subjective Subjective Narrative: Patient experienced some abdominal pain last night requiring morphine. He felt that he ate too much and was not feeling well. He had 2 bowel movements and is feeling better this morning Exam Vital Signs Temp Pulse Resp BP Pulse Ox O2 Del Method O2 Flow Rate 97.4 F 71 18 103/70 99 Room Air 0 06/26/24 08:00 06/26/24 11:16 06/26/24 11:16 06/26/24 08:00 06/26/24 08:00 06/26/24 08:00 06/25/24 20:00 His vital signs are normal Routine Abdominal Exam Comments: Abdominal examination is unchanged Assessment & Plan Assessment Additional comments: Impression: Slow but steady recovery from the right hemicolectomy. Patient is finding it hard to switch to regular diet from blenderized diet. He received 1 unit of RBCs and his hemoglobin is up to 9.9 g Plan Plan: We shall discharge the patient tomorrow and his diet has been outlined by the dietitian. Procedures Procedures Explored laparotomy and resection of the cecal cancer on ilio transverse colostomy
[2024-06-26] MEDS: HYDROcodone/APAP 5/325 TABLET 1 TAB PO ×2 (14:19→22:01)
--- NOTE | 2024-06-26 18:13 | PD.IMPROG ---
Documentation for date of: 06/26/24 Subjective Subjective Interval history: Patient evaluated hemoglobin hematocrit 9.9 and 31.9 Exam Vital Signs Temp Pulse Resp BP Pulse Ox O2 Del Method O2 Flow Rate 98.0 F 74 18 109/71 96 Room Air 0 06/26/24 15:55 06/26/24 15:55 06/26/24 15:55 06/26/24 15:55 06/26/24 15:55 06/26/24 12:00 06/26/24 12:47 Objective Labs 06/26/24 08:39 06/25/24 04:35 Labs: Laboratory Results - last 24 hr 06/25/24 06/26/24 07:15 08:39 Hgb 9.9 L D Hct 31.9 L Blood Type O Positive Antibody Screen NEGATIVE Crossmatch See Detail Blood Bank Wristband ID Yes Impressions Impression: # 63 status post exploratory laparotomy right hemicolectomy for obstructing cecal carcinoma final stage P T2 N0 Assessment & Plan A&P Narrative 1. Admitted with total obstruction of ascending colon, underwent resection of cecal cancer ileotransverse colostomy. 2. pT2N0 invasive adenocarcinoma well-differentiated surgical margins 40 lymph nodes negative. 3. Recovering satisfactorily now on TPN. 4. Informed patient about follow-up at the cancer treatment center, after receiving referral from primary MD. Time Spent With Patient Time: Total time spent is greater than 50% in coordination of care (as documented) at patient's floor/unit and/or counseling patient:
[2024-06-26 20:02] LABS: Hematocrit 32.6 % (41.0-53.0); Hemoglobin 10.2 g/dL (13.5-16.0)
--- NOTE | 2024-06-26 20:12 | PC.NURSE ---
ambulated around nurses' station 3 south, with gait steady, tolerated well.
[2024-06-27 04:00] VITALS: BP 108/70; PULSE 66; RESP 18; TEMP 36.1; O2SAT 99
[2024-06-27 08:00] VITALS: BP 120/64; PULSE 60; RESP 16; TEMP 36.6; O2SAT 98
--- NOTE | 2024-06-27 09:50 | PD.SURPROG ---
Documentation for date of: 06/27/24 Subjective Subjective Narrative: Patient is feeling better and has had 7 bowel movements yesterday Exam Vital Signs Temp Pulse Resp BP Pulse Ox O2 Del Method O2 Flow Rate 97.8 F 60 16 120/64 98 Room Air 0 06/27/24 08:00 06/27/24 08:00 06/27/24 08:00 06/27/24 08:00 06/27/24 08:00 06/27/24 08:00 06/26/24 12:47 Vital signs are normal Routine Abdominal Exam Comments: Abdominal examination is negative Results Results: Laboratory Laboratory Narrative: Posttransfusion hemoglobin is 10.2 Assessment & Plan Assessment Additional comments: Impression: Stable recovery from the surgery Plan Plan: We shall discharge patient today and follow him up in my office next week patient will be given Vicodin 20 for pain control Procedures Procedures Explored laparotomy and resection of the cecal cancer on ilio transverse colostomy
== END 2024-06-27 12:25 | disposition home or self-care (01) | DRG 231 ==
LOC: SERX 18:44 → SERHOLD 21:02 → S3NX 23:03
PROVIDERS: Nurse Practitioner Family; Radiology Diagnostic Radiology; Surgery; Admitting Provider Student in an Organized Health Care Education/Training Program; Emergency Provider Emergency Medicine; Visit Provider Internal Medicine
PROC: 0D1L0Z4 Bypass Transverse Colon to Cutaneous, Open Approach (ICD-10-PCS; CPT 49000; principal; 2024-06-15 11:45)
DX: C18.0 Malignant neoplasm of cecum (principal); R59.1 Generalized enlarged lymph nodes; D62 Acute posthemorrhagic anemia; M89.58 Osteolysis, other site; D50.9 Iron deficiency anemia, unspecified; R63.4 Abnormal weight loss; R18.8 Other ascites; K56.7 Ileus, unspecified; M79.89 Other specified soft tissue disorders; E87.6 Hypokalemia; B96.20 Unspecified Escherichia coli [E. coli] as the cause of diseases classified elsewhere; N39.0 Urinary tract infection, site not specified; Z63.4 Disappearance and death of family member; Z80.0 Family history of malignant neoplasm of digestive organs; Z68.1 Body mass index [BMI] 19.9 or less, adult
CPT/HCPCS: 36415; 74019; 77001; 80053; 81001; 82378; 83735; 84100; 84478; 85014; 85018; 85025; 85610; 85730; 86850; 86900; 86901; 86923; 87077; 87081; 87086; 87186; 93005; 94664; 94762; 97162; 99285; A4217; A4649; C1751; C1894; J0131; J0461; J0694; J0696; J1642; J2250; J2270; J2405; J2704; J2765; J3010; J3411; J3475; J3480; J3490; J7030; J7050; J7999; P9016; A9270

== ENCOUNTER 2024-07-14 14:08 | Outpatient (RCR) | payer MEDICAID, SELFPAY | END 2024-08-09 23:59 | disposition home or self-care (01) | LOC: SCTC 14:08 | PROVIDERS: PCP Family Medicine; Referring Provider Radiology Therapeutic Radiology; Visit Provider Radiology Therapeutic Radiology | DX: C18.2 Malignant neoplasm of ascending colon (principal); Z90.49 Acquired absence of other specified parts of digestive tract | CPT/HCPCS: 99213; G0463 ==

== ENCOUNTER 2024-08-17 08:57 | Outpatient (RCR) | payer MEDICAID, SELFPAY ==
--- NOTE | 2024-08-17 09:53 | CTCCONSULT_ITS ---
Patient: TERESA SHULTZ : 1960 MR#: [id number] Page 2 of 3 CONSULTATION NOTE DATE OF CONSULTATION: 08/17/2024 NAME: TERESA SHULTZ ACCOUNT: [id number] : 1960 AGE: 63 REFERRING PHYSICIAN: Soila Martin MD PRIMARY PHYSICIAN: Dr. Lares REASON FOR VISIT: New adenocarcinoma of colon ONCOLOGY HISTORY: DIAGNOSIS: Malignant neoplasm of ascending colon [ICD10] C18.2 DATE OF DIAGNOSIS: 06/16/2024 STAGE/TNM: Stage I Invasive adenocarcinoma well-differentiated surgical margins 23 lymph nodes negative Mesentery negative for cancer Peritoneal and small bowel resection negative for carcinoma small bowel right hemicolectomy and small bowel resection all 16 lymph nodes negative low-grade tumor invading muscularis propria and tumor perforation not seen no loss of expression of mismatch proteins T2 p N0 ascending colon adenocarcinoma completely resected with clear margins total 14 lymph nodes negative for malignancy mismatch repair proteins no loss of expression TREATMENT HISTORY: Care?Plan Start?Date Cycle Day Intent HISTORY OF PRESENT ILLNESS: 63-year-old male was admitted with abdominal pain and likely obstruction. Patient had elective surgery and found to have no perforation. Patient had a complete resection. Postoperative. Complicated by infection in the wound with the wound in the right lower quadrant being treated by general surgeon with antibiotics. Patient has been gaining weight and eating and has good appetite OTHER MEDICAL HISTORY/CONDITIONS: ANEMIA COLON CA CHICKENPOX HIVES KIDNEY STONES MEASLES MUMPS EYE???(AGE?10) FAMILY HISTORY: Mother:?PANCRATIC??? 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 Tobacco?Pack?per?Day:?0 ETOH?Use:?DENIES Drug?Note:?DENIES Social?History?Note:?LIVE?ALONE MEDICATIONS: 1. No medications reported by patient - Medications Last Reconciled by Val Jamison RN on 08/17/2024 ALLERGIES: No Known Drug Allergies REVIEW OF SYSTEMS: A complete 14-point review of systems was performed and is negative except as noted in interval history. PHYSICAL EXAMINATION: VITAL SIGNS: Temperature?98.7, B/P?114/69, Height?67?inches, Oxygen?Saturation?100% Weight?136?lbs PAIN: 0 - No pain ECOG Performance Status: 0 - Asymptomatic and fully active GENERAL APPEARANCE: Appears well, in no apparent distress, appropriately interactive. HEENT: Normocephalic, no temporal wasting, normal conjunctiva, no scleral icterus, normal hearing, lips without lesions, neck normal range of motion. CARDIOVASCULAR: Not assessed. PULMONARY: Normal respiratory effort, no respiratory distress or use of accessory muscles, speaking in full sentences, no tachypnea. EXTREMITIES: No pedal edema or cyanosis. SKIN: Normal skin appearance. NEUROLOGIC: Alert and oriented x4. PSHYCHIATRIC: Appropriate affect, mood normal, behavior normal, intact thought and speech. LABORATORY DATA: I have personally reviewed and interpreted each of the patient?s relevant lab tests, abnormal findings are below: Date ASSESSMENT/PLAN: Stage I invasive colon cancer T2 N0 M0 Stage I P have no role of chemotherapy NCCN recommends to do CEA every 3 to 6 months with physical examination for first 2 years and then every 6 months for total 5 years colonoscopy in 1 year and then repeated every 5 years ORDERS: Order # Description [id number] Comprehensive Metabolic Panel - 12 + CBC with Auto Diff + CEA [id number] Comprehensive Metabolic Panel - 12 + CBC with Auto Diff + CEA [id number] MD Follow Up 3 Months RETURN TO CLINIC: Follow-up with Audra every 3 months for total 5 years. Patient do not need to see me until requested by nurse practitioner BILLING AND COMPLIANCE: I reviewed external records from providers outside my specialty as summarized above. I spent a total of 50 minutes on this patient?s care on the day of their visit excluding time spent related to any billed procedures. This time includes time spent with the patient as well as time spent documenting in the medical record, reviewing patients records and tests, obtaining history, placing orders, communicating with other healthcare professionals, counseling the patient, family or caregiver, and/or care coordination for the diagnoses above. Electronically Signed by: Leonardo Hawthorne MD T: 9:51 AM CC: Bakari?Luda,? PCP: Referring: Soila Martin This document was completed utilizing speech recognition software. Grammatical errors, random word insertions, pronoun errors, and incomplete sentences are an occasional consequence of this system due to software limitations, ambient noise, and hardware issues. Any formal questions or concerns about the content, text or information contained within the body of this dictation should be directly addressed to the provider for clarification.
== END 2024-09-08 23:59 | disposition home or self-care (01) ==
LOC: SCTC 08:57
PROVIDERS: PCP Internal Medicine; Referring Provider Family Medicine; Visit Provider Internal Medicine Hematology & Oncology
DX: C18.2 Malignant neoplasm of ascending colon (principal); Z90.49 Acquired absence of other specified parts of digestive tract
CPT/HCPCS: Q3014

== ENCOUNTER 2024-09-29 08:00 | Outpatient (RCR) | payer MEDICAID, SELFPAY | END 2024-10-09 23:59 | disposition home or self-care (01) | LOC: SCTC 08:00 | PROVIDERS: PCP Internal Medicine; Referring Provider Internal Medicine; Visit Provider Internal Medicine Hematology & Oncology | DX: C18.2 Malignant neoplasm of ascending colon (principal); C18.0 Malignant neoplasm of cecum | CPT/HCPCS: 36415 ==

== ENCOUNTER 2024-11-16 13:28 | Outpatient (RCR) | payer MEDICAID, SELFPAY | END 2024-12-09 23:59 | disposition home or self-care (01) | LOC: SCTC 13:28 | PROVIDERS: PCP Internal Medicine; Referring Provider Internal Medicine; Visit Provider Nurse Practitioner Family | DX: C18.0 Malignant neoplasm of cecum (principal); Z90.49 Acquired absence of other specified parts of digestive tract | CPT/HCPCS: 99212; G0463 ==

== ENCOUNTER 2024-12-16 09:27 | Outpatient (RCR) | payer MEDICAID, SELFPAY | END 2025-01-09 23:59 | disposition home or self-care (01) | LOC: SCTC 09:27 | PROVIDERS: PCP Internal Medicine; Referring Provider Internal Medicine; Visit Provider Nurse Practitioner Family | DX: C18.2 Malignant neoplasm of ascending colon (principal); Z90.49 Acquired absence of other specified parts of digestive tract; E53.8 Deficiency of other specified B group vitamins | CPT/HCPCS: 99212; G0463 ==

== ENCOUNTER 2025-01-19 12:10 | Day surgery (SDC) | payer MEDICAID, SELFPAY ==
[2025-01-18 12:27] VITALS: BMI 22.1
[2025-01-19] VITALS (11 sets, daily range): BP systolic 108–192; BP diastolic 67–105; PULSE 59–74; RESP 12–20; TEMP 36.6–36.7; O2SAT 97–100; BMI 21.2
[2025-01-19] MEDS: RINGERS LACTATED 1000 ML 1,000 ML 100 ML IV (14:34)
[2025-01-19] MEDS: fentaNYL CIT INJ 50 mCg/ML AMP 2ML (ASD USE ONLY) IVP (14:37)
[2025-01-19] MEDS: MIDAZOLAM INJ 1 MG/ML VIAL 2 ML (ASD USE ONLY) 2 MG IVP (14:45)
== END 2025-01-19 15:53 | disposition home or self-care (01) ==
PROVIDERS: PCP Internal Medicine; Referring Provider Surgery; Visit Provider Surgery
PROC: 0DBE8ZX Excision of Large Intestine, Via Natural or Artificial Opening Endoscopic, Diagnostic (ICD-10-PCS; CPT 45380; principal; 2025-01-19 13:00)
DX: Z12.11 Encounter for screening for malignant neoplasm of colon (principal); D64.9 Anemia, unspecified; Z90.49 Acquired absence of other specified parts of digestive tract; Z85.038 Personal history of other malignant neoplasm of large intestine
CPT/HCPCS: 45378; A4649; J2250; J3010; J7120

== ENCOUNTER 2025-01-24 13:32 | Emergency (ER) | payer MEDICAID, SELFPAY ==
[2025-01-24 13:33] VITALS: BMI 22.1
--- NOTE | 2025-01-24 13:36 | EKG_ITS ---
[facility] Test Date: 2025-01-24 Pat Name: TERESA SHULTZ Department: Room: - Gender: Male Trials Manager: : 1960 Requested By: ED Temporary Provider Order Number: [id number] Reading MD: ED Temporary Provider Measurements Intervals [place] Rate: 61 P: 64 AR: 156 QRS: -2 QRSD: 97 T: 57 QT: 409 QTc: 415 Interpretive Statements SINUS RHYTHM WITH FREQUENT VENTRICULAR PREMATURE COMPLEXES INCOMPLETE RIGHT BUNDLE BRANCH BLOCK [90+ ms QRS DURATION, TERMINAL R IN V1/V2, 40+ ms S IN I/aVL/V4/V5/V6] ABNORMAL RHYTHM ECG Compared to ECG 06/13/2024 21:29:38 Ventricular premature complex(es) now present Incomplete right bundle-branch block now present Left-axis deviation no longer present /store/S0/[id number]/ecg/[id number].pdf
[2025-01-24 13:43] VITALS: BP 146/67; PULSE 55; RESP 18; TEMP 37; O2SAT 95
--- NOTE | 2025-01-24 13:46 | PD.EDRME ---
Rapid Medical Screening Exam RME Arrival date/time: 01/24/25 13:32 64-year-old male with a history of colorectal cancer was sent to the emergency room by the [facility] for bradycardia. Patient's heart rate was in the 30s while sitting there an hour ago. Patient [facility]12 injection. Patient has no history of any cardiac issues. Patient denies any chest pain, palpitations, dizziness, lightheadedness or any other complaints. I have greeted and performed a focused initial assessment of this patient. A comprehensive ED assessment and evaluation of the patient, analysis of all test results, and completion of the medical decision making process will be conducted by additional ED providers. Chief Complaint: Arrhythmia/Palpitations Time Seen by Provider: 01/24/25 13:38 Vital signs reviewed by provider: Yes
--- NOTE | 2025-01-24 13:47 | XR_ITS ---
Examination: PA lateral chest 2 views TECHNIQUE: Upright PA lateral chest 2 views Date and time: January 24, 2025 1430 hours INDICATIONS: Hypotension and tachycardia today. FINDINGS: Normal heart size. Lungs are clear. The osseous structures are intact IMPRESSION: No active disease.
[2025-01-24 14:33] LABS: Basophils # (Auto) 0.0 Thou/mm3 (0.0-0.2); Basophils % (Auto) 1 % (0-2.5); Eosinophils # (Auto) 0.1 Thou/mm3 (0.0-0.5); Eosinophils % (Auto) 1 % (0-10); Hematocrit 36.2 % (41.0-53.0); Hemoglobin 11.6 g/dL (13.5-16.0); Immature Granulocytes Auto 0.00 Thou/mm3 (0.00-0.00); Lymphocytes # (Auto) 0.9 Thou/mm3 (1.0-4.8); Lymphocytes % (Auto) 23 % (10-50); Mean Corpuscular HGB Conc 32.0 g/dl (31.0-37.0); Mean Corpuscular Hemoglobin 30.1 pg (25.0-35.0); Mean Corpuscular Volume 94 fL (80-100); Monocytes # (Auto) 0.3 Thou/mm3 (0.0-0.8); Monocytes % (Auto) 8 % (0-12); Neutrophils # (Auto) 2.7 Thou/mm3 (1.8-7.7); Neutrophils % (Auto) 68 % (37-80); Nucleated Red Blood Cell # 0.00 Thou/mm3 (0.00-0.00); Nucleated Red Blood Cell % 0 /100 WBC (0); Platelet Count 217 Thou/mm3 (140-440); RDW Standard Deviation 46.6 fL (35.1-43.9); Red Blood Count 3.86 Miln/mm3 (4.50-5.90); White Blood Count 4.0 Thou/mm3 (3.8-10.6)
--- NOTE | 2025-01-24 14:33 | EDNOTE_ITS ---
<Statement entered by Kathrine Aiken MD - 01/25/25 06:32> I, Kathrine Aiken MD, have reviewed the history, exam, and assessment of the patient. I have evaluated the patient independently and agree with the plan of care documented by [ ]. All diagnostic studies were reviewed and discussed. I confirm the diagnosis as documented by the Resident. I was present during the Medical Decision Making for this patient. The patient's plan of care was created between myself and the Resident and consistent with our discussion of the patient's case. ED Arrhythmia Palp. RME/HPI General Chief Complaint: Arrhythmia/Palpitations Stated Complaint: IRREG HR IN 30'S, COMING FROM [facility] Time Seen by Provider: 01/24/25 13:38 Arrival date/time: 01/24/25 13:32 RME / HPI RME / HPI narrative: 01/24/25 13:32 64-year-old male with a history of colorectal cancer was sent to the emergency room by the [facility] for bradycardia. Patient's heart rate was in the 30s while sitting there an hour ago. Patient initially went to the [facility] for a B12 injection. Patient has no history of any cardiac issues. Patient denies any chest pain, palpitations, dizziness, lightheadedness or any other complaints. I have greeted and performed a focused initial assessment of this patient. A comprehensive ED assessment and evaluation of the patient, analysis of all test results, and completion of the medical decision making process will be conducted by additional ED providers. Mr. Solares is a 64-year-old male with past medical history of colon adenocarcinoma status post resection and anemia who presented to [facility] emergency department on 01/24/2025 with a chief complaint of bradycardia. Patient was sent over by [facility], patient reported that he went to cancer treatment center today to receive his B12 injection when he was found to be bradycardic and 30s. Patient denies any symptoms, denies any dizziness, chest pain, shortness of breath, palpitations, falls, syncope, presyncope, lightheadedness and leg swelling. 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 Related Data Home Medications ?Medication ?Instructions ?Recorded ?Confirmed ferrous sulfate 325 mg (65 mg 325 mg PO QDAY 01/24/25 01/24/25 iron) tablet Allergies Allergy/AdvReac Type Severity Reaction Status Date / Time No Known Allergies Allergy Verified 01/24/25 13:34 Review of Systems Review of Systems Systems Reviewed: All systems reviewed, normal except as documented Past Medical History Past Medical History Comments PMH COMMENT: Past medical history: ? 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 Marital Status: . of pancreatic cancer. Has 2 daughters Tobacco use: Denies ETHO use: Denies Illicit drug use: Denies Social History Note: lives alone. At baseline patient can independently ambulate. He was a vegan up until 2021, currently rarely consumes red/processed meat. Family History: Mother? of pancreatic cancer at 83 Maternal grandmother- of stomach cancer ED Exam Narrative Physical exam: Physical Exam General: Awake and in no acute distress. Conversational and non-toxic appearing. HEENT: Normocephalic, atraumatic, mucous membranes moist. Heart: Regular rate and rhythm, no murmurs. Lungs: Clear to auscultation with no wheezing or crackles. Abdomen: Soft, nondistended, nontender, positive bowel sounds. ?No guarding or rebound tenderness. Neurologic: Alert and oriented x3, no gross neurological deficit, and patient able to move all 4 extremities. Extremities: No edema. Skin: No rash or ecchymoses. Course Course Course Narrative: Patient seen and examined in room 19, workup ordered in triage Workup: EKG showed sinus rhythm, heart rate 61 with PVCs CBC: RBC 3.46, hemoglobin 11.6, hematocrit 36.2, platelet count 217 Coags: PT 12.4, INR 1.1, APTT 27 CMP: Sodium 145, potassium 3.8, chloride 107, bicarb 29.8, anion gap 8, BUN 12, creatinine 0.7, GFR greater than 60, glucose 91, Osmolality 288, Corrected Calcium 9.8, Mag 2.2, T bili 0.7, AST 23, ALT 18, Alk Phosp 65, Trop < 0.02, BNP 73, T Protein 6.8, Albumin 4.5 Urinanalysis unremarkable CXR negative for PNA Potassium repleted to keep greater than 4 Patient was monitored on telemetry, heart rate greater than 50 at all times, did have some runs of trigeminy Patient will be discharged, recommend outpatient follow-up with cardiology. Quality Measures none Orders Category Date Time Status Executive Sous Chef Q4H START 00 Care 01/24/25 14:29 Active Continuous Pulse Oximetry NOW Care 01/24/25 14:29 Active EKG (ED ONLY) *Do not use* NOW Care 01/24/25 13:36 Completed EKG (ED Only) Stat Exams 01/24/25 13:36 Draft XR chest 2V Stat Exams 01/24/25 13:47 Ordered B-Type Natriuretic Peptide Stat Lab 01/24/25 14:04 Received CBC Stat Lab 01/24/25 14:04 Received Comprehensive Metabolic Panel Stat Lab 01/24/25 14:04 Received Magnesium Stat Lab 01/24/25 14:04 Received Partial Thromboplastin Time Stat Lab 01/24/25 14:04 Received Prothrombin Time with INR Stat Lab 01/24/25 14:04 Received Troponin I Stat Lab 01/24/25 14:04 Received Urinalysis, C/S if Indicated Stat Lab 01/24/25 13:47 Ordered Vital Signs Vital signs: Vital Signs Temperature 98.6 F 01/24/25 13:43 Pulse Rate 55 L 01/24/25 13:43 Respiratory Rate 18 01/24/25 13:43 Blood Pressure 146/67 H 01/24/25 13:43 Pulse Oximetry (%) 95 01/24/25 13:43 Oxygen Delivery Method Room Air 01/24/25 13:43 Arrhythmia/Palpitations MDM Narrative MDM Narrative:: #Asymptomatic sinus bradycardia 64-year-old male with past medical history of adenocarcinoma status postresection and anemia presented with a chief complaint of bradycardia heart rate in 30s Patient was seen at cancer treatment center for B12 injection, his heart rate was 30s as reported by [facility] staff EKG showed sinus rhythm, heart rate 61 with PVCs CBC CMP unremarkable, potassium 3.8, magnesium 2.2 Urinanalysis unremarkable Potassium repleted to keep greater than 4 Patient was monitored on telemetry, heart rate greater than 50 at all times, did have some runs of trigeminy Patient will be discharged, recommend outpatient follow-up with cardiology. Discharge instructions as below. Case discussed with Attending Physician Dr. Attila Ni MD Internal Medicine PGY-2 Disclaimer: This note was dictated by speech recognition. Minor errors in charging crane operator may be present due to voice recognition software. Patient data External records reviewed:: [facility] previous records Clinical information provided by:: patient Social determinants that could affect healthcare access:: none Patient has the following chronic illnesses:: None How is presenting disease/condition affected by chronic disease/condition?: uneffected by Evaluation data The following diagnostics were reviewed and interpreted by me:: lab results, radiology exam(s) and EKG tracing(s) Lab and/or radiology exams considered but not ordered:: None Interpretation Summary: EKG showed sinus rhythm, heart rate 61 with PVCs CBC: RBC 3.46, hemoglobin 11.6, hematocrit 36.2, platelet count 217 Coags: PT 12.4, INR 1.1, APTT 27 CMP: Sodium 145, potassium 3.8, chloride 107, bicarb 29.8, anion gap 8, BUN 12, creatinine 0.7, GFR greater than 60, glucose 91, Osmolality 288, Corrected Calcium 9.8, Mag 2.2, T bili 0.7, AST 23, ALT 18, Alk Phosp 65, Trop < 0.02, BNP 73, T Protein 6.8, Albumin 4.5 Urinanalysis unremarkable CXR negative for PNA Medications / Prescriptions Medications or Prescriptions considered but not ordered:: None Medication administrations:: None Consultations Consultation(s) initiated? (list below): No Diagnosis Differential diagnosis arrhythmia/palpitations: other Most likely diagnosis given after review of the tests above:: Asymptomatic Sinus Bradycardia Admission Indicated Admission indicated?: not indicated Admission Request Was there a request for admission?: No Disposition Plan Disposition Plan: Discharge Discharge Attestation Discharge Attestation: The patient and all family members were given an opportunity to ask questions and understood the discharge instructions. Discharge instructions specifically effects, indications for sooner follow up or return to the emergency department, and the expected course of current diagnosis. Patient condition: Stable Discharge Plan Plan Patient Disposition: HOME (Self Care) Health Concerns: - You were seen in the emergency department due to concern of bradycardia, your EKG in the emergency department shows sinus rhythm with a heart rate of 61 with frequent PVCs, as you do not have any symptoms we will be discharging you. - We highly recommend following up with a clinical rn manager outpatient to obtain echocardiogram and Holter monitoring, please obtain a referral from your primary care physician. - You are not on any medications per our review which slowed down your heart rate, please follow-up with your primary care physician in 1 week - If you have any symptoms please return to the emergency department for further evaluation Prescriptions/Referrals Prescriptions/Med Rec: Continued ferrous sulfate 325 mg (65 mg iron) tablet 325 mg PO QDAY Patient Comments: TAKE 1 TABLET EVERY DAY BY ORAL ROUTE WITH MEAL(S) FOR 30 DAYS. Referrals: Clayton Goodwin MD [Physician, Cardiology] - In 1 week True Merino MD [Primary Care Provider] - In 1 week Problem List Clinical Impression: Bradycardia Patient/Caregiver Discharge Instructions Education Materials: ED Bradycardia Print Language: Croatian Stand Alone Forms: [facility]eline Award Info., Patient Portal Info Letter
[2025-01-24 14:43] LABS: Collection Type, Urine Clean Catch; Squamous Epithelial Cell,Urine 0 /hpf (0-5)
[2025-01-24 14:54] LABS: INR 1.1 (0.9-1.3); Partial Thromboplastin Time 27.0 Seconds (22.0-36.0); Prothrombin Time 12.4 Seconds (9.0-12.2)
[2025-01-24 14:55] LABS: B-Type Natriuretic Peptide 73 pg/mL (0-100)
[2025-01-24 14:57] LABS: Bilirubin,Urine Negative (Negative); Blood,Urine Negative (Negative); Clarity,Urine Clear (Clear/Hazy); Color,Urine Lt-Yellow (Lt Yel-Yel); Culture Indicated,Urine Not Indicated; Glucose, Urine Negative (Negative); Ketones,Urine Negative (Negative); Leukocyte Esterase,Urine Negative (Negative); Nitrite,Urine Negative (Negative); PH,Urine 6.5 (5.0-7.0); Protein,Urine Negative (Neg - Trace); RBC,Urine 4 /hpf (0-3); Specific Gravity,Urine 1.021 (1.001-1.035); Urobilinogen,Urine Negative mg/dL (0.0-1.0); WBC,Urine 1 /hpf (0-5)
[2025-01-24 14:58] LABS: Alanine Aminotransferase 18 U/L (10-49); Albumin, Serum 4.5 gm/dL (3.4-4.8); Albumin/Globulin Ratio 2.0 (1.2-2.2); Alkaline Phosphatase 65 U/L (46-116); Anion Gap 8 (7-16); Aspartate Amino Transferase 23 U/L (0-34); BUN/Creatinine Ratio 17 Ratio (12-20); Bilirubin,Total 0.7 mg/dL (0.3-1.2); Blood Urea Nitrogen 12 mg/dL (9-23); Calcium 9.8 mg/dL (8.3-10.6); Calcium (Corrected) 9.8 mg/dL (8.5-10.1); Carbon Dioxide 29.8 mMol/L (20.0-31.0); Chloride 107 mMol/L (98-107); Creatinine (Component) 0.7 mg/dL (0.6-1.3); Estimated Creatinine Clearance 103.9 mL/min (>60); Globulin 2.3 gm/dL (2.3-3.5); Glucose 91 mg/dL (74-106); Magnesium 2.2 mg/dL (1.6-2.6); Osmolality,Calculated 288 (275-295); Potassium 3.8 mMol/L (3.4-5.1); Sodium 145 mMol/L (136-145); Total Protein 6.8 gm/dL (5.7-8.2); Troponin I < 0.020 ng/mL (0.0-0.045); eGFR > 60 See Note
[2025-01-24 15:23] VITALS: BP 172/86; PULSE 68; RESP 12; TEMP 36.8; O2SAT 100
[2025-01-24 16:19] VITALS: BP 137/73; PULSE 61; RESP 16; O2SAT 100
[2025-01-24 16:25] VITALS: PULSE 56
== END 2025-01-24 17:11 | disposition home or self-care (01) ==
PROVIDERS: Nurse Practitioner Family; Emergency Provider Emergency Medicine; PCP Internal Medicine
DX: R00.1 Bradycardia, unspecified (principal); I49.3 Ventricular premature depolarization; I45.10 Unspecified right bundle-branch block
CPT/HCPCS: 36415; 71046; 80053; 81001; 83735; 83880; 84484; 85025; 85610; 85730; 93005; 99284; A9270

== ENCOUNTER 2025-01-26 12:54 | Outpatient (RCR) | payer MEDICAID, SELFPAY ==
--- NOTE | 2025-01-13 13:47 | CTCFLWUP_ITS ---
[facility] [address] [place], [place] [address] FOLLOW-UP NOTE Date: 01/13/2025 MR#: [id number] Name: TERESA SHULTZ : 1960 Dx: C18.2 Malignant neoplasm of ascending colon Identification. Patient with ascending colon cecal CA presented with small bowel obstruction. Underwent right hemicolectomy 06/16/2024 for low-grade invasive adenocarcinoma well-differentiated invading muscularis propria 40 negative lymph nodes total stage I pT2N0. Tumor size 5.7 x 5.5 x 4.3 cm margins negative lymphovascular invasion not seen perineural invasion not seen No loss of expression. For low risk no adjuvant therapy was offered, but continued observation with CEA etc. Signatera negative on 09/30/2024. Repeat reportedly pending. CEA 11/09/2024 was 2.5. Patient appears well, denies any abdominal pain. Patient I initially saw as inpatient hospital patient appears to be doing well. Being followed regularly by Jo Ann RUSSELL and Dr. Hawthorne. For stage I pT2 N0 ascending colon cancer. Electronically signed by: Bakari Lares M.D. 01/13/2025 1:45 PM
== END 2025-02-08 23:59 | disposition home or self-care (01) ==
LOC: SCTC 12:54
PROVIDERS: PCP Internal Medicine; Referring Provider Internal Medicine; Visit Provider Radiology Therapeutic Radiology
DX: C18.2 Malignant neoplasm of ascending colon (principal); Z90.49 Acquired absence of other specified parts of digestive tract; E53.8 Deficiency of other specified B group vitamins
CPT/HCPCS: 96372; 99212; J3420; G0463

== ENCOUNTER 2025-02-23 13:08 | Outpatient (RCR) | payer MEDICAID, SELFPAY | END 2025-03-11 23:59 | disposition home or self-care (01) | LOC: SCTC 13:08 | PROVIDERS: PCP Internal Medicine; Referring Provider Internal Medicine; Visit Provider Nurse Practitioner Family | DX: E53.8 Deficiency of other specified B group vitamins (principal); C18.2 Malignant neoplasm of ascending colon; Z90.49 Acquired absence of other specified parts of digestive tract | CPT/HCPCS: 96372; J3420 ==

== ENCOUNTER 2025-03-24 12:51 | Outpatient (RCR) | payer MEDICAID, SELFPAY | END 2025-04-10 23:59 | disposition home or self-care (01) | LOC: SCTC 12:51 | PROVIDERS: PCP Internal Medicine; Referring Provider Internal Medicine; Visit Provider Nurse Practitioner Family | DX: C18.2 Malignant neoplasm of ascending colon (principal); Z90.49 Acquired absence of other specified parts of digestive tract; E53.8 Deficiency of other specified B group vitamins | CPT/HCPCS: 96372; 99212; J3420; G0463 ==

== ENCOUNTER → 2025-04-13 | Outpatient (CLI) | payer MEDICAID, SELFPAY ==
--- NOTE | 2025-04-13 11:00 | XR_ITS ---
Examination: Arterial duplex lower extremity study. Date and time of exam: April 13, 2025 1110 hours INDICATIONS: Swelling in the legs months Findings: Duplex sonographic imaging of the lower extremity arteries using B-mode/Nash scale imaging and Doppler spectral analysis and color flow. Ankle brachial indices have been recorded. Right common femoral artery demonstrates triphasic flow. Right superficial femoral artery demonstrates triphasic flow. Right popliteal artery demonstrates triphasic flow. Right posterior tibial artery demonstrated triphasic flow. Right ankle/brachial index is 1.0. Left common femoral artery demonstrates triphasic flow. Left superficial femoral artery demonstrates triphasic flow. Left popliteal artery demonstrates triphasic flow. Left posterior tibial artery demonstrated triphasic flow. Left ankle/brachial index is 1.2. Impression: Negative for obstructive arterial disease
== END | disposition home or self-care (01) ==
LOC: CDIM 10:54
PROVIDERS: PCP Internal Medicine
DX: R60.0 Localized edema (principal)
CPT/HCPCS: 93925

== ENCOUNTER 2025-04-21 10:53 | Outpatient (RCR) | payer MEDICAID, SELFPAY | END 2025-05-11 23:59 | disposition home or self-care (01) | LOC: SCTC 10:53 | PROVIDERS: PCP Internal Medicine; Referring Provider Internal Medicine; Visit Provider Nurse Practitioner Family | DX: E53.8 Deficiency of other specified B group vitamins (principal); C18.2 Malignant neoplasm of ascending colon; Z90.49 Acquired absence of other specified parts of digestive tract | CPT/HCPCS: 96372; J3420 ==